=== PATIENT | female | born 1955 | race African-American/Black ===

== ENCOUNTER → 2016-04-30 | Outpatient (CLI) | payer MEDICARE, OTHER | END | disposition home or self-care (01) | LOC: LABWHC1 10:07 | PROVIDERS: ATTEND Internal Medicine Endocrinology, Diabetes & Metabolism | DX: E05.90 Thyrotoxicosis, unspecified without thyrotoxic crisis or storm (principal) | CPT/HCPCS: 36415; 84439; 84443 ==

== ENCOUNTER → 2016-05-02 | Outpatient (CLI) | payer MEDICARE, OTHER ==
--- NOTE | 2016-05-03 13:45 | MM ---
Reason for exam: screening (asymptomatic). Last mammogram was performed 2 years and 4 months ago. Physical Findings: A clinical breast exam by your physician is recommended on an annual basis and results should be correlated with mammographic findings. MG Screening Mammo w CAD Bilateral CC and MLO view(s) were taken. Prior study comparison: December 31, 2013, bilateral MG screening mammo w CAD. The breast tissue is heterogeneously dense. This may lower the sensitivity of mammography. Finding: There are typically benign round calcifications in both breasts. There is no discrete abnormality. ASSESSMENT: Benign, BI-RAD 2 RECOMMENDATION: Routine screening mammogram of both breasts in 1 year.
== END | disposition home or self-care (01) ==
LOC: RADMAMWWP 08:04
PROVIDERS: ATTEND Family Medicine
DX: Z12.31 Encounter for screening mammogram for malignant neoplasm of breast (principal)

== ENCOUNTER → 2016-05-20 | Outpatient (CLI) | payer MEDICARE, OTHER ==
--- NOTE | 2016-05-20 08:34 | XR ---
EXAMINATION TYPE: XR chest 2V DATE OF EXAM: 05/20/2016 8:24 AM COMPARISON: 10/27/2013 INDICATION: Screening history of TB TECHNIQUE: Frontal and lateral views of the chest are obtained. FINDINGS: The heart size is normal. The pulmonary vasculature is normal. The lungs are clear. IMPRESSION: 1. No acute pulmonary process.
== END | disposition home or self-care (01) ==
LOC: RADXRMAIN 08:13
PROVIDERS: ATTEND Family Medicine
DX: Z11.1 Encounter for screening for respiratory tuberculosis (principal)
CPT/HCPCS: 71020

== ENCOUNTER → 2016-07-25 | Outpatient (CLI) | payer MEDICARE, OTHER | LOC: LABWHC1 09:54 | PROVIDERS: ATTEND Internal Medicine Endocrinology, Diabetes & Metabolism | DX: E05.90 Thyrotoxicosis, unspecified without thyrotoxic crisis or storm (principal) | CPT/HCPCS: 36415; 84439; 84443 ==

== ENCOUNTER → 2016-07-31 | Outpatient (CLI) | payer MEDICARE, OTHER ==
[2016-07-31 14:33] VITALS: BP 149/72; PULSE 85; RESP 16; TEMP 97.9; BMI 41.3
--- NOTE | 2016-08-23 19:54 | P.PN ---
Progress Note - Text DATE OF SERVICE: 07/31/2016 CHIEF COMPLAINT: Follow-up sleeve gastrectomy. HISTORY OF PRESENT ILLNESS: Chelsey Mar is a 61-year-old female who is status post sleeve gastrectomy in January 2014. She is over 2-1/2 years out. She reports having recent back surgery in the last 2 months and now she is taking Robaxin and Vicodin. She reports weight gain of at least 6 pounds. She also reports troubles with food getting stuck. She has dysphagia primarily to solid foods. Separately she comes in with concerns of a moderate sized pannus following her significant weight loss of over 100+ pounds. At her height of 5 feet 4 inches her ideal body weight is 144 pounds. Her highest weight was 356 pounds. Today she comes in weighing 240 pounds. She has maintained a 116 pound weight loss. Percent excess weight loss is 55%. Body mass index is reduced from 60.2 down to 41.3. Total BMI point reduction is 20 pounds. She is still 96 pounds overweight. PAST MEDICAL HISTORY: 1. Morbid obesity. 2. Hypertension. 3. Blood glucose intolerance. 4. Thyroid nodules. 5. Diverticulosis. 6. Osteoarthritis of the lower back. PAST SURGICAL HISTORY: 1. Laparoscopic cholecystectomy. 2. EGD. 3. Sleeve gastrectomy. 4. Paraesophageal hiatal hernia repair. 5. Oophorectomy including exploratory laparotomy. 6. Colonoscopy. 7. Status post back surgery. MEDICATIONS: 1. Levothyroxine. 2. Vitamin A. 3. Thiamine. 4. Multivitamin. 5. Nasonex spray. 6. Robaxin. 7. Xalatan. 8. [place]. 9. Zyrtec. 10. Calcium with vitamin D. 11. Fiorinal. 12. Biotin. 13. Albuterol inhaler. ALLERGIES: 1. ASPIRIN. 2. PENICILLIN. SOCIAL HISTORY: Nontobacco user. FAMILY HISTORY: Pertinent for super morbid obesity. REVIEW OF SYSTEMS: CONSTITUTIONAL: Weight gain of approximately 5 to 6 pounds in the last 8 months. Total weight loss of 117 pounds. Percent excess of 55%. Body mass index reduced from 61.2 down to 41.3. Total BMI point reduction of 20 points. Overweight by 96 pounds. MUSCULOSKELETAL: Reports recent lower back surgery with some improvement of symptoms. GASTROINTESTINAL: No reports of gastroesophageal reflux disease. However, she reports dysphagia to textured foods. ENDOCRINE: Has history of thyroid disorder and with her thyroid nodules. Prior history of blood sugar glucose intolerance with hemoglobin A1c of 7% now resolved. NEURO: Reports increased neuropathy of the distal lower extremities. CARDIOVASCULAR: Resolution of dyslipidemia including hypertension. RESPIRATORY: History obstructive sleep apnea moderately improved. HEENT: No trouble with vision or hearing. PSYCH: No reports of depression or suicidal ideation. HEMATOLOGIC: Denies any abnormal bleeding or bruising. PHYSICAL EXAM: VITAL SIGNS: 97.9, 85, 16, 149/72; 5 feet 4 inches; 240 pounds. Body mass index 41.3. ABDOMEN: Soft, nondistended, nontender. Pannus extends over pubis by 5 cm with hyperemia consistent with panniculitis. Size of pannus of over 6 pounds. GENERAL: Well developed female in no acute distress. MUSCULOSKELETAL: No clubbing, cyanosis or edema. HEENT: No scleral icterus. Extraocular movements are intact. CHEST: Nonlabored respirations. Equal bilateral excursions. CARDIOVASCULAR: Regular rate. Regular rhythm. NEURO: No focal or lateralizing signs. Cranial nerves II to XII grossly intact. PSYCH: Appropriate affect. Alert and oriented to person, place and time. LABS: Recent labs demonstrated thyroid-stimulating hormone suppressed at 0.046. FT4 level was low at 0.58. Hemoglobin was normal at 12.7. Glucose was low at 72. ASSESSMENT: 1. Morbid obesity due to excess calories. 2. Body mass index reduced from 61.2 down to 41.3. 3. Status post sleeve gastrectomy. 4. Iatrogenic hyperthyroidism. 5. Osteoarthritis of the lower back status post surgery. 6. Dysphasia. 7. Panniculitis. PLAN: 1. At minimum I have recommended upper GI. She reports intolerance to textured foods with the sleeve gastrectomy. This overall has gotten worse for her. 2. May also benefit from upper endoscopy with balloon dilatation. 3. To address her panniculitis she has been using nystatin powders for over 2 years with maintained weight loss of over 100 pounds. She would be excellent candidate for panniculectomy. 4. A panniculectomy packet including risk of the procedure of bleeding, infection, flap failure, need for further surgery, abdominal wall seroma, chronic pain were described in detail. 5. Will need deep venous thrombosis prophylaxis. 6. Antibiotic prophylaxis. 7. Once she is cleared from her neurosurgeon and back surgeon, we may consider further evaluation of her panniculectomy. 8. Also recommend correcting her overall dysphagia to foods. Optimal nutrition will be ideal for recovery following a panniculectomy or additional surgeries. ADDENDUM: Upper GI was completed demonstrating no evidence of hiatal hernia or diverticulum or evidence of reflux disease.
== END | disposition home or self-care (01) ==
LOC: BARWHC3 14:13
PROVIDERS: ATTEND Surgery Plastic and Reconstructive Surgery
DX: Z48.815 Encounter for surgical aftercare following surgery on the digestive system (principal); E66.01 Morbid (severe) obesity due to excess calories; Z68.41 Body mass index [BMI] 40.0-44.9, adult; Z98.84 Bariatric surgery status; E05.80 Other thyrotoxicosis without thyrotoxic crisis or storm; R13.10 Dysphagia, unspecified; M47.896 Other spondylosis, lumbar region; M79.3 Panniculitis, unspecified; Z79.899 Other long term (current) drug therapy; Z88.0 Allergy status to penicillin; Z88.8 Allergy status to other drugs, medicaments and biological substances; Z98.890 Other specified postprocedural states
CPT/HCPCS: 99211

== ENCOUNTER → 2016-08-08 | Outpatient (CLI) | payer MEDICARE, OTHER ==
--- NOTE | 2016-08-08 13:02 | FL ---
ESOPHOGRAM. HISTORY: Dysphagia Esophagram was performed per the air contrast technique. The patient swallowed barium and effervesce nt crystals without difficulty or delay. Esophageal peristalsis and motility appear to be within normal limits. There is no evidence for filling defect, mass or diverticulum. No hiatal hernia seen. Subsequently single contrast cervical esophagram was performed which fails demonstrate evidence for a spiration penetration or mass. Evaluation of the stomach demonstrates a gastric sleeve formation. There is no evidence for obstructi on or leak. Contrast is seen within the duodenum. IMPRESSION: Unremarkable study.
== END ==
LOC: RADFLWHC 09:12
PROVIDERS: ATTEND Surgery Plastic and Reconstructive Surgery
DX: R13.10 Dysphagia, unspecified (principal); R07.9 Chest pain, unspecified
CPT/HCPCS: 74220

== ENCOUNTER → 2016-09-20 | Outpatient (CLI) | payer MEDICARE, OTHER | END | disposition home or self-care (01) | LOC: LABWHC1 12:44 | PROVIDERS: ATTEND Internal Medicine Endocrinology, Diabetes & Metabolism | DX: E05.90 Thyrotoxicosis, unspecified without thyrotoxic crisis or storm (principal) | CPT/HCPCS: 36415; 84439; 84443 ==

== ENCOUNTER → 2016-11-25 | Outpatient (CLI) | payer MEDICARE, OTHER | END | disposition home or self-care (01) | LOC: LABWHC1 07:24 | PROVIDERS: ATTEND Internal Medicine Endocrinology, Diabetes & Metabolism | DX: E05.90 Thyrotoxicosis, unspecified without thyrotoxic crisis or storm (principal) | CPT/HCPCS: 36415; 84439; 84443; 84480 ==

== ENCOUNTER → 2017-02-27 | Outpatient (CLI) | payer MEDICARE, OTHER ==
[2017-02-27 11:06] VITALS: BP 150/71; PULSE 70; RESP 20
[2017-02-27 11:20] VITALS: BMI 43.2
[2017-02-27 12:05] VITALS: TEMP 97.8
--- NOTE | 2017-04-28 17:42 | P.PN ---
Subjective Progress Note Date: 02/27/17 DATE OF SERVICE: 02/27/2017 CHIEF COMPLAINT: Follow-up sleeve gastrectomy. HISTORY OF PRESENT ILLNESS: Chelsey Mar is a 61-year-old female who is status post sleeve gastrectomy in January 2014. She is 3 years out. Since her last visit 6 months ago, she has gained 12 pounds. She comes in for evaluation for panniculectomy. Separately she complains of tenderness along her neck. She has been seeing the clamshell operator for thyromegaly. Now she presents for further evaluation and management. At her height of 5 feet 4 inches her ideal body weight is 144 pounds. Her highest weight was 356 pounds. Today she comes in weighing 252 pounds. She has maintained a 104 pound weight loss. Percent excess weight loss is 49%. Body mass index is reduced from 61.2 down to 43.3. Total BMI point reduction is 18. She is still 108 pounds overweight. PAST MEDICAL HISTORY: 1. Morbid obesity. 2. Hypertension. 3. Blood glucose intolerance. 4. Thyroid nodules. 5. Diverticulosis. 6. Osteoarthritis of the lower back. PAST SURGICAL HISTORY: 1. Laparoscopic cholecystectomy. 2. EGD. 3. Sleeve gastrectomy. 4. Paraesophageal hiatal hernia repair. 5. Oophorectomy including exploratory laparotomy. 6. Colonoscopy. 7. Status post back surgery. MEDICATIONS: 1. Levothyroxine. 2. Vitamin A. 3. Thiamine. 4. Multivitamin. 5. Nasonex spray. 6. Robaxin. 7. Xalatan. 8. [place]. 9. Zyrtec. 10. Calcium with vitamin D. 11. Fiorinal. 12. Biotin. 13. Albuterol inhaler. ALLERGIES: 1. ASPIRIN. 2. PENICILLIN. SOCIAL HISTORY: Nontobacco user. FAMILY HISTORY: Pertinent for super morbid obesity. REVIEW OF SYSTEMS: CONSTITUTIONAL: Weight gain of approximately 18 pounds in 2 years. Total weight loss of 104 pounds. Percent excess of 49%. Body mass index reduced from 61.2 down to 43.3. Total BMI point reduction of 18 points. Overweight by 108 pounds. MUSCULOSKELETAL: Reports recent lower back surgery with some improvement of symptoms. Has diffuse joint pain. GASTROINTESTINAL: No reports of gastroesophageal reflux disease. Reports trouble swallowing. ENDOCRINE: Has history of thyroid disorder and with her thyroid nodules. Prior history of blood sugar glucose intolerance with hemoglobin A1c of 7% now resolved. NEURO: Reports increased neuropathy of the distal lower extremities. CARDIOVASCULAR: Resolution of dyslipidemia including hypertension. RESPIRATORY: History obstructive sleep apnea moderately improved. HEENT: No trouble with vision or hearing. PSYCH: No reports of depression or suicidal ideation. HEMATOLOGIC: Denies any abnormal bleeding or bruising. PHYSICAL EXAM: VITAL SIGNS: 5 feet 4 inches; 252 pounds. Body mass index 43.3. ABDOMEN: Soft, nondistended, nontender. Pannus extends over pubis by 8 cm with hyperemia consistent with panniculitis. Size of pannus of 15 to 20 lbs. GENERAL: Well developed female in no acute distress. MUSCULOSKELETAL: No clubbing, cyanosis or edema. HEENT: No scleral icterus. Extraocular movements are intact. NECK: Thyromegaly. Nontender. No lymphadenopathy. CHEST: Nonlabored respirations. Equal bilateral excursions. CARDIOVASCULAR: Regular rate. Regular rhythm. NEURO: No focal or lateralizing signs. Cranial nerves II to XII grossly intact. PSYCH: Appropriate affect. Alert and oriented to person, place and time. SKIN: Well perfused. Good skin turgor. STUDIES: Esophagram demonstrates no hiatal hernia or reflux. ASSESSMENT: 1. Morbid obesity due to excess calories. 2. Body mass index reduced from 61.2 down to 43.3. 3. Status post sleeve gastrectomy. 4. Dysphagia. 5. Osteoarthritis of the lower back status post surgery. 6. Thyroid goiter. 7. Panniculitis. 8. Hypertensive heart disease. 9. History of asthma. PLAN: 1. Recommend evaluation for panniculectomy however following evaluation of her thyroid goiter. 2. On exam, she has moderate thyromegaly. Recommend ultrasound of the neck to evaluate for thyroid masses or nodules. 3. Recommend repeat labs for thyroid disorder. Also recommend follow up with clamshell operator. 4. Recommend pictures of her panniculitis. 5. Recommend 2 weeks high protein, low calorie diet prior to panniculectomy. 6. Surgical intervention pending complete assessment of thyroid disorder. Objective - Vital Signs Vital signs: Vital Signs Temp 7.8 F L 02/27/17 11:01 Pulse 70 02/27/17 11:01 Resp 20 02/27/17 11:01 BP 150/71 02/27/17 11:01 Pulse Ox Intake & Output 02/26/17 02/27/17 02/27/17 18:59 06:59 18:59 Weight 114.351 kg
== END | disposition home or self-care (01) ==
LOC: BARWHC3 10:00
PROVIDERS: ATTEND Surgery Plastic and Reconstructive Surgery
DX: Z09 Encounter for follow-up examination after completed treatment for conditions other than malignant neoplasm (principal); M47.816 Spondylosis without myelopathy or radiculopathy, lumbar region; E04.9 Nontoxic goiter, unspecified; M79.3 Panniculitis, unspecified; I11.9 Hypertensive heart disease without heart failure; E66.01 Morbid (severe) obesity due to excess calories; Z68.41 Body mass index [BMI] 40.0-44.9, adult; Z87.09 Personal history of other diseases of the respiratory system; Z88.6 Allergy status to analgesic agent; Z88.0 Allergy status to penicillin; Z79.899 Other long term (current) drug therapy; Z90.49 Acquired absence of other specified parts of digestive tract; Z87.19 Personal history of other diseases of the digestive system; Z90.721 Acquired absence of ovaries, unilateral; Z98.84 Bariatric surgery status; Z98.890 Other specified postprocedural states
CPT/HCPCS: 99211

== ENCOUNTER → 2017-03-07 | Outpatient (CLI) | payer MEDICARE, OTHER ==
--- NOTE | 2017-03-07 18:19 | US ---
EXAMINATION TYPE: US thyroid st tissue head/neck DATE OF EXAM: 03/07/2017 COMPARISON: US 11/09/2015 CLINICAL HISTORY: R94.6 Abnormal thyroid labs. Feels enlarged neck compared to prior US exam. GLAND SIZE: Right Lobe: 7.1 x 3.1 x 3.8 cm Overall Parenchyma: heterogenous Left Lobe: greater than 7.0 x 3.2 x 3.2 cm (enlarged gland too large for measuring accurate length) Overall Parenchyma: heterogeneous. Lobular borders especially noted on left superior thyroid on i mage #27 and #29. Isthmus Thickness: 1.9 cm inferiorly NODULES RIGHT: # of nodules measured on right: 1 1. 0.3 X 0.3 x 0.3 cm hypoechoic solid nodule at the upper pole with poorly defined margins. This nodule is wide as is tall and shows no intranodular vascularity. Prior size: 0.3 x 0.2 x 0.2 cm LEFT: # of nodules measured on left: 2 largest of multiple small nodules. 1. 0.5 X 0.6 x 0.2 cm hypoechoic cystic nodule at the upper pole with well-defined margins. This n odule is wider than tall and shows no intranodular vascularity. Prior size: 0.8 x 0.7 x 0.5 cm 2. 0.6 X 0.7 x 0.7 cm hyperechoic solid nodule at the mid medial pole with well-defined margins. Th is nodule is wide as is tall and shows no intranodular vascularity. Prior size: 0.6 x 0.6 x 0.5 cm ISTHMUS: # of nodules measured in the isthmus: 0 Bilateral neck scanned, no evidence of lymphadenopathy. IMPRESSION: Markedly enlarged thyroid gland consistent with multinodular goiter. No dominant thyroid mass. The gl and measures larger than old exam.
== END | disposition home or self-care (01) ==
LOC: RADUSWWP 16:47
PROVIDERS: ATTEND Surgery Plastic and Reconstructive Surgery
DX: E04.9 Nontoxic goiter, unspecified (principal)
CPT/HCPCS: 76536

== ENCOUNTER → 2017-04-16 | Outpatient (CLI) | payer MEDICARE, OTHER ==
[2017-04-16 15:05] VITALS: BP 142/79; PULSE 82; RESP 16; TEMP 98.2; BMI 43.0
--- NOTE | 2017-05-27 22:16 | P.PN ---
Progress Note - Text Progress Note Date: 04/16/17 DATE OF SERVICE: 04/16/2017 CHIEF COMPLAINT: Follow-up sleeve gastrectomy. HISTORY OF PRESENT ILLNESS: Chelsey Mar is a 61-year-old female who is status post sleeve gastrectomy in January 2014. At her height of 5 feet 4 inches her ideal body weight is 144 pounds. Her highest weight was 356 pounds. Today she comes in weighing 250 pounds. She has lost 2 pounds since her last visit 1 month ago. She has maintained a 106 pound weight loss. Percent excess weight loss is 50%. Body mass index is reduced from 61.2 down to 43.0. Total BMI point reduction is 18.3. She is still 106 pounds overweight. She comes in today with problems with her thyroid. She seeing an breast trimmer. She complains of neck swelling including troubles with swallowing. She also reports new heart palpitations. She reports intermittent gastroesophageal reflux disease. Her main concern includes increased dysphagia especially secondary to her thyroid. She also complains of new onset weakness and numbness and tingling of the bilateral lower extremities including arms and legs. She is ambulating with a cane. PAST MEDICAL HISTORY: 1. Morbid obesity. 2. Hypertension. 3. Blood glucose intolerance. 4. Thyroid nodules. 5. Diverticulosis. 6. Osteoarthritis of the lower back. PAST SURGICAL HISTORY: 1. Laparoscopic cholecystectomy. 2. EGD. 3. Sleeve gastrectomy. 4. Paraesophageal hiatal hernia repair. 5. Oophorectomy including exploratory laparotomy. 6. Colonoscopy. 7. Status post back surgery. MEDICATIONS: 1. Levothyroxine. 2. Vitamin A. 3. Thiamine. 4. Multivitamin. 5. Nasonex spray. 6. Robaxin. 7. Xalatan. 8. [place]. 9. Zyrtec. 10. Calcium with vitamin D. 11. Fiorinal. 12. Biotin. 13. Albuterol inhaler. ALLERGIES: 1. ASPIRIN. 2. PENICILLIN. SOCIAL HISTORY: Nontobacco user. FAMILY HISTORY: Pertinent for super morbid obesity. REVIEW OF SYSTEMS: CONSTITUTIONAL: At her height of 5 feet 4 inches her ideal body weight is 144 pounds. Her highest weight was 356 pounds. Today she comes in weighing 250 pounds. She has lost 2 pounds since her last visit 1 month ago. She has maintained a 106 pound weight loss. Percent excess weight loss is 50%. Body mass index is reduced from 61.2 down to 43.0. Total BMI point reduction is 18.3. She is still 106 pounds overweight. MUSCULOSKELETAL: Reports recent lower back surgery with some improvement of symptoms. Has diffuse joint pain. GASTROINTESTINAL: Has gastroesophageal reflux disease. Reports trouble swallowing. ENDOCRINE: Has history of thyroid disorder and with her thyroid nodules. Prior history of blood sugar glucose intolerance with hemoglobin A1c of 7% now resolved. NEURO: Reports increased neuropathy of the distal lower extremities. CARDIOVASCULAR: Resolution of dyslipidemia including hypertension. RESPIRATORY: History obstructive sleep apnea moderately improved. HEENT: No trouble with vision or hearing. PSYCH: No reports of depression or suicidal ideation. HEMATOLOGIC: Denies any abnormal bleeding or bruising. PHYSICAL EXAM: VITAL SIGNS: 5 feet 4 inches; 250 pounds. Body mass index 43.0. Vital Signs Temp 98.2 F 04/16/17 15:02 Pulse 82 04/16/17 15:02 Resp 16 04/16/17 15:02 BP 142/79 04/16/17 15:02 Pulse Ox ABDOMEN: Soft, nondistended, nontender. GENERAL: Well developed female in no acute distress. MUSCULOSKELETAL: No clubbing, cyanosis or edema. HEENT: No scleral icterus. Extraocular movements are intact. NECK: Thyromegaly. Nontender. No lymphadenopathy. CHEST: Nonlabored respirations. Equal bilateral excursions. CARDIOVASCULAR: Regular rate. Regular rhythm. NEURO: No focal or lateralizing signs. Cranial nerves II to XII grossly intact. PSYCH: Appropriate affect. Alert and oriented to person, place and time. SKIN: Well perfused. Good skin turgor. STUDIES: Ultrasound of the neck demonstrated increased size of thyroid gland including multinodular thyroid. No large over 1 cm discrete nodules identified. Esophagram from previous also reviewed demonstrating no obstruction along the esophagus or stomach. LABS: Laboratory Last Values WBC 5.5 k/uL (3.8-10.6) 02/28/17 16:58 RBC 4.27 m/uL (3.80-5.40) 02/28/17 16:58 Hgb 13.1 gm/dL (11.4-16.0) 02/28/17 16:58 Hct 41.5 % (34.0-46.0) 02/28/17 16:58 MCV 97.1 fL (80.0-100.0) 02/28/17 16:58 MCH 30.7 pg (25.0-35.0) 02/28/17 16:58 MCHC 31.6 g/dL (31.0-37.0) 02/28/17 16:58 RDW 14.5 % (11.5-15.5) 02/28/17 16:58 Plt Count 225 k/uL (150-450) 02/28/17 16:58 Sodium 134 mmol/L (137-145) L 02/28/17 16:58 Potassium 4.4 mmol/L (3.5-5.1) 02/28/17 16:58 Chloride 101 mmol/L (98-107) 02/28/17 16:58 Carbon Dioxide 28 mmol/L (22-30) 02/28/17 16:58 Anion Gap 5 mmol/L 02/28/17 16:58 BUN 14 mg/dL (7-17) 02/28/17 16:58 Creatinine 0.80 mg/dL (0.52-1.04) 02/28/17 16:58 Est GFR (MDRD) Af Amer >60 (>60 ml/min/1.73 sqM) 02/28/17 16:58 Est GFR (MDRD) Non-Af >60 (>60 ml/min/1.73 sqM) 02/28/17 16:58 Glucose 108 mg/dL (74-99) H 02/28/17 16:[address] Glu mg/dL 114 02/28/17 16:58 Hemoglobin A1c 5.6 % (4.0-6.0) 02/28/17 16:58 Calcium 8.7 mg/dL (8.4-10.2) 02/28/17 16:58 Phosphorus 3.9 mg/dL (2.5-4.5) 02/28/17 16:58 Magnesium 2.1 mg/dL (1.6-2.3) 02/28/17 16:58 Iron 79 ug/dL (50-170) 02/28/17 16:58 TIBC 257 ug/dL (228-460) 02/28/17 16:58 Iron Saturation 30.74 (12.00-45.00) 02/28/17 16:58 Ferritin 76.3 ng/mL (10.0-291.0) 02/28/17 16:58 Total Bilirubin 0.4 mg/dL (0.2-1.3) 02/28/17 16:58 AST 27 U/L (14-36) 02/28/17 16:58 ALT 32 U/L (9-52) 02/28/17 16:58 Alkaline Phosphatase 82 U/L (38-126) 02/28/17 16:58 Total Protein 5.8 g/dL (6.3-8.2) L 02/28/17 16:58 Albumin 3.2 g/dL (3.5-5.0) L 02/28/17 16:58 Prealbumin 28.0 mg/dL (18.0-42.0) 02/28/17 16:58 Triglycerides 136 mg/dL (<150) 02/28/17 16:58 Cholesterol 160 mg/dL (<200) 02/28/17 16:58 LDL Cholesterol, Calc 77 mg/dL (0-99) 02/28/17 16:58 HDL Cholesterol 56 mg/dL (40-60) 02/28/17 16:58 Vitamin A 54 ug/dL (38-106) 02/28/17 16:58 Vitamin B1 37 ug/L (38-122) L 02/28/17 16:58 Vitamin B12 356.0 pg/mL (200.0-944.0) 02/28/17 16:58 Vitamin D 25-Hydroxy 26.6 ng/mL (30.0-100.0) L 02/28/17 16:58 Folate >24.0 ng/mL 02/28/17 16:58 TSH 16.600 mIU/L (0.465-4.680) H 02/28/17 16:58 Free T4 <0.07 ng/dL (0.78-2.19) L 02/28/17 16:58 Total T3 72.0 ng/dL (60.0-180.0) 02/28/17 16:58 PTH Intact 121.9 pg/mL (14.0-72.0) H 02/28/17 16:58 Copper 950 ug/L (810-1990) 02/28/17 16:58 Selenium 112 mcg/L (63-160) 02/28/17 16:58 Zinc 60 ug/dL (60-130) 02/28/17 16:58 Labs reviewed demonstrated low protein. Low albumin. Low thiamine. Low vitamin D. TSH elevated. PTH elevated. Free T4 low. ASSESSMENT: 1. Morbid obesity due to excess calories. 2. Body mass index reduced from 61.2 down to 43.0. 3. Status post sleeve gastrectomy. 4. Dysphagia. 5. Osteoarthritis of the lower back status post surgery. 6. Thyroid goiter. 7. Panniculitis. 8. Hypertensive heart disease. 9. History of asthma. 10. Bilateral lower extremity neuropathy, increasing. 11. Adequate protein intake. 12. Thiamine deficiency. 13. Vitamin D deficiency. 14. Hypothyroidism. 15. Secondary hyperparathyroidism. PLAN: 1. She reports increased dysphagia as well as a markedly increased size in the thyroid gland. I have recommended upper endoscopy. 2. With her increase trouble swallowing, esophageal dysmotility cannot be excluded. Also recommend evaluation with manometry. 3. She has clinical symptoms consistent with increased neuropathy of the lower extremities as well as thiamine deficiency. Recommend correction of thiamine deficiency. 4. She also reports new onset palpitations. This may also be secondary to her thyroid medications. Recommend evaluation with the greaser operator also for presurgical evaluation and for possible thyroidectomy. 5. Additionally, recommend CT of the neck for large multinodular goiter which may have extension into the substernum. 6. Surgical prevention with thyroidectomy also reviewed after correction of hypothyroidism with her breast trimmer and cardiac clearance.
== END | disposition home or self-care (01) ==
LOC: BARWHC3 14:07
PROVIDERS: ATTEND Surgery Plastic and Reconstructive Surgery
DX: Z09 Encounter for follow-up examination after completed treatment for conditions other than malignant neoplasm (principal); E66.01 Morbid (severe) obesity due to excess calories; E04.9 Nontoxic goiter, unspecified; E89.0 Postprocedural hypothyroidism; I11.9 Hypertensive heart disease without heart failure; E74.39 Other disorders of intestinal carbohydrate absorption; K57.90 Diverticulosis of intestine, part unspecified, without perforation or abscess without bleeding; M47.9 Spondylosis, unspecified; M79.3 Panniculitis, unspecified; K21.9 Gastro-esophageal reflux disease without esophagitis; E51.9 Thiamine deficiency, unspecified; G57.93 Unspecified mononeuropathy of bilateral lower limbs; J45.909 Unspecified asthma, uncomplicated; E55.9 Vitamin D deficiency, unspecified; Z98.84 Bariatric surgery status; Z98.890 Other specified postprocedural states; Z79.899 Other long term (current) drug therapy; Z79.891 Long term (current) use of opiate analgesic; Z79.51 Long term (current) use of inhaled steroids; Z88.0 Allergy status to penicillin; Z88.6 Allergy status to analgesic agent; Z68.41 Body mass index [BMI] 40.0-44.9, adult; Z90.49 Acquired absence of other specified parts of digestive tract; N25.81 Secondary hyperparathyroidism of renal origin
CPT/HCPCS: 99211

== ENCOUNTER → 2017-04-25 | Outpatient (CLI) | payer MEDICARE, OTHER ==
[2017-04-25 07:44] LABS: Blood Urea Nitrogen 14 mg/dL (7-17)
--- NOTE | 2017-04-25 08:42 | CT ---
EXAMINATION TYPE: CT soft tissue neck w con DATE OF EXAM: 04/25/2017 HISTORY: Lt sided neck mass, thyroid nodule COMPARISON: Thyroid ultrasound dated 03/07/2017 CT DLP: 730.5 mGycm. Automated Exposure Control for Dose Reduction was Utilized. TECHNIQUE: CT scan of the neck is performed with IV Contrast, patient injected with 100 mL of Omnipa que 300, axial images are obtained, coronal and sagittal reformatted images are reviewed. FINDINGS: Airway: Airway is patent and unremarkable. Parotid/submandibular glands: Parotid and submandibular glands are symmetric without surrounding infl ammatory change or obvious calculus. Carotid/Vascular Structures: There is no evidence of hemodynamically significant stenosis. Vertebral arteries are codominant. No significant noncalcific or calcific atherosclerosis. Osseous Structures: Osseous structures are intact with minimal multilevel degenerative changes of the cervical spine. There are some limitation in evaluation of the cervical spine secondary to patient m otion on the sagittal image. Other: As noted on the prior ultrasound dated 03/07/2017 the thyroid gland is enlarged with extension into the superior mediastinum at the level of the sternum. There is also heterogeneity with the know n left-sided thyroid nodules better visualized on the prior ultrasound. There is no surrounding adeno felicitas. The thyroid gland measures up to 6.1 cm in craniocaudal dimension within each lobe and 2.9 cm within the left lobe in transverse dimension with the isthmus measuring 1.5 cm. There is no tracheal narrowing subsequent to the enlarged thyroid. IMPRESSION: Redemonstration of an enlarged thyroid and thyroid nodules better seen on the ultrasound dated 03/07/2017. There is no narrowing of the trachea or surrounding adenopathy. Surveillance is rec ommended for the known subcentimeter thyroid nodules as these are too small for percutaneous biopsy.
== END ==
LOC: RADCTMAIN 07:15
PROVIDERS: ATTEND Surgery Plastic and Reconstructive Surgery
DX: E04.2 Nontoxic multinodular goiter (principal)
CPT/HCPCS: 82565; 84520; 70491; 36415; Q9967; 96374

== ENCOUNTER → 2017-05-20 | Outpatient (CLI) | payer MEDICARE, OTHER ==
--- NOTE | 2017-05-20 10:13 | MR ---
EXAMINATION TYPE: MR brain wo/w con DATE OF EXAM: 05/20/2017 COMPARISON: CT brain July 26, 2014 HISTORY: Headache per patient. CVA 163.9 per prescription. TECHNIQUE: Multiplanar, multisequence images of the brain and brainstem is performed without and with IV contras t, utilizing 11.5 mL intravenous Gadavist . FINDINGS: Diffusion weighted images demonstrate no evidence of a recent infarct or other diffusion ab normality. There is no worrisome extra-axial fluid collection. The ventricular system and cisternal spaces are normal in size and appearance. The brain volume is age appropriate. There are focal and confluent areas of T2 hyperintensity redemonstrated throughout the deep and periventricular white mat ter bilaterally. Lesions are nonspecific in appearance and distribution but most likely on basis of p roduct of proximal vessel ischemic change in patient this age. Midline structures demonstrate normal morphology. The craniocervical junction appears within normal limits. Post contrast images demonstrate no abnormal enhancement. The dural venous sinuses appear pa tent. The visualized sinuses are clear and the globes are intact. IMPRESSION: 1. No evidence of a recent infarct. 2. Moderate to severe nonspecific white matter changes most likely on basis of product of chronic sma ll vessel ischemic change in patient of this age. No enhancing lesions are evident.
== END | disposition home or self-care (01) ==
LOC: RADMRIMAIN 08:06
PROVIDERS: ATTEND Psychiatry & Neurology Pain Medicine
DX: R90.82 White matter disease, unspecified (principal); I63.9 Cerebral infarction, unspecified
CPT/HCPCS: 70553; A9581

== ENCOUNTER → 2017-06-02 | Outpatient (CLI) | payer MEDICARE, OTHER | END | disposition home or self-care (01) | LOC: CANPRECLI → LABWHC1 09:00 | PROVIDERS: ATTEND Psychiatry & Neurology Pain Medicine | DX: Z53.9 Procedure and treatment not carried out, unspecified reason (principal) ==

== ENCOUNTER → 2017-06-03 | Outpatient (CLI) | payer MEDICARE, OTHER ==
[2017-06-03 20:23] LABS: Anti-DNA, DS unit <1.0 IU/mL; Centromere Antibody Interp NEGATIVE (NEGATIVE); Cyclic Citrullinated Pep IgG NEGATIVE (NEGATIVE); DNA Double-Stranded NEGATIVE (NEGATIVE); RNP <0.2 AI; Scleroderma SC-70 Ab <0.2 AI
== END | disposition home or self-care (01) ==
LOC: LABWHC1 12:46
PROVIDERS: ATTEND Psychiatry & Neurology Pain Medicine
DX: M25.50 Pain in unspecified joint (principal)
CPT/HCPCS: 36415; 83516; 86038; 86200; 86225; 86235

== ENCOUNTER 2017-06-11 06:41 | Day surgery (SDC) | payer MEDICARE, OTHER ==
[2017-06-06 15:02] VITALS: BMI 42.9
[~2017-06-11 06:41] MED LIST: LACTATED RINGERS 1,000 ML IV SCH
[2017-06-11 07:10] VITALS: TEMP 97.7
[2017-06-11] MEDS ORDERED: LIDOCAINE 1% INJ 10MG/ML (20 ML MDV) ONE (07:35)
[2017-06-11] MEDS ORDERED: PROPOFOL 10 MG/ML 20 ML VIAL IV ONE (07:35)
[2017-06-11] MEDS ORDERED: GLYCOPYRROLATE 0.2 MG/ML 2 ML VIAL ONE (07:35)
--- NOTE | 2017-06-11 07:39 | P.GSHP ---
History of Present Illness H&P Date: 06/11/17 CHIEF COMPLAINT: GERD HISTORY OF PRESENT ILLNESS: The patient is a 61-year-old female who presents reports gastroesophageal reflux disease. Upper endoscopy was offered for further evaluation and management. PAST MEDICAL HISTORY: Please see list. PAST SURGICAL HISTORY: Please see list. MEDICATIONS: Please see list. ALLERGIES: Please see list. SOCIAL HISTORY: No illicit drug use FAMILY HISTORY: No reports of Crohn disease or ulcerative colitis. REVIEW OF ORGAN SYSTEMS: CONSTITUTIONAL: No reports of fevers or chills. GI: Denies any blood in stools or constipation. PHYSICAL EXAM: VITAL SIGNS: Stable GENERAL: Well-developed and pleasant in no acute distress. HEENT: No scleral icterus. Extraocular movements grossly intact. Moist buccal mucosa. NECK: Supple without lymphadenopathy. CHEST: Unlabored respirations. Equal bilateral excursions. CARDIOVASCULAR: Regular rate and rhythm. Distal 2+ pulses. ABDOMEN: Soft, nondistended. MUSCULOSKELETAL: No clubbing, cyanosis, or edema. ASSESSMENT: 1. Gastroesophageal reflux disease PLAN: 1. Recommend proceeding with an upper endoscopy Past Medical History Past Medical History: CVA/TIA, Deep Vein Thrombosis (DVT), GERD/Reflux, Osteoarthritis (OA) Additional Past Medical History / Comment(s): CHRONIC PAIN, HX migraine, HX HIATAL hernia, HX TIA X2, GLAUCOMA, DVT, Treated for TB at age 3 to age 7. History of Any Multi-Drug Resistant Organisms: None Reported Past Surgical History: Bariatric Surgery, Section, Cholecystectomy, Hernia Repair, Hysterectomy, Orthopedic Surgery Additional Past Surgical History / Comment(s): temporal biopsy to r\\o pain from migraines- not effective, , CARPAL TUNNEL X5, LEFT LEG SX, gastric sleeve 2013 Past Anesthesia/Blood Transfusion Reactions: Previous Problems w/ Anesthesia Additional Past Anesthesia/Blood Transfusion Reaction / Comment(s): STATES "SPINAL WENT TOO HIGH" with labor. Pt doesn't accept blood, but will accept plasma. Smoking Status: Former smoker - Past Family History Mother Family Medical History: Hypertension Sister(s) Family Medical History: Cancer Additional Family Medical History / Comment(s): COLON Brother(s) Family Medical History: Cancer Additional Family Medical History / Comment(s): Prostate CA Medications and Allergies Home Medications Medication Instructions Recorded Confirmed Type Mometasone Furoate [Nasonex Nasal 2 sprays EA NOSTRIL DAILY 11/23/13 06/11/17 History [place]] Latanoprost Ophth [Xalatan 0.005%] 1 drops BOTH EYES HS 11/26/13 06/11/17 History Albuterol Sulfate [Proair Hfa] 2 puff INHALATION RT-Q4H PRN 01/25/14 06/11/17 History Butalbital/Aspirin/Caffeine 1 tab PO Q4H PRN 01/25/14 06/11/17 History [Fiorinal 50-325-40 MG] Biotin 5 mg PO DAILY 03/09/14 06/11/17 History Calcium Carbonate/Vitamin D3 1 tab PO TID 03/09/14 06/11/17 History [Calcium 500-Vit D3 400 Tablet] Cetirizine HCl [Zyrtec] 10 mg PO DAILY #60 tab 03/09/14 06/11/17 Rx Multivitamins, Thera [Multivitamin 1 tab PO DAILY 03/09/14 06/11/17 History (formulary)] HYDROcodone/APAP 7.5-325MG [[place] 1 tab PO BID PRN 03/16/15 06/11/17 History 7.5-325] Pregabalin [Lyrica] 75 mg PO BID 06/06/17 06/11/17 History Vitamin B 1 tab PO DAILY 06/06/17 06/11/17 History Vitamin D 1 tab PO DAILY 06/06/17 06/11/17 History Allergies Allergy/AdvReac Type Severity Reaction Status Date / Time aspirin Allergy Abdominal Verified 06/06/17 14:56 Pain Penicillins Allergy Itching Verified 06/06/17 14:56 environmental Allergy nose Uncoded 06/06/17 14:56 drainage, watery eyes, sneeze Surgical - Exam Vital Signs Temp Pulse Resp BP 97.7 F 64 14 142/75 06/11/17 07:08 06/11/17 07:08 06/11/17 07:08 06/11/17 07:08
--- NOTE | 2017-06-11 07:52 | P.PCN ---
Date of Procedure: 06/11/17 Description of Procedure: PREOPERATIVE DIAGNOSIS: Status post sleeve gastrectomy. Gastroesophageal reflux disease. Epigastric abdominal pain. Dysphagia. POSTOPERATIVE DIAGNOSIS: Status post sleeve gastrectomy. Gastroesophageal reflux disease. Epigastric abdominal pain. Dysphagia. Diaphragmatic hiatal hernia without obstruction. Gastric polyps antrum. OPERATION: Esophagogastroduodenoscopy with cold forceps biopsies along the antrum. SURGEON: Marta Sullivan MD ANESTHESIA: MAC. INDICATIONS: The patient is a 61-year-old female who presents with a history of sleeve gastrectomy with dysphagia. Benefits and risks of the procedure were described. Informed consent was obtained. DESCRIPTION: The patient was brought into the endoscopy suite and laid in the left lateral decubitus position. An Olympus gastroscope was passed along the posterior oropharynx down to the distal esophagus where the squamocolumnar junction was at 34 centimeters from the incisors with minimal LA grade A without ulceration. The distal esophagus was distorted with occassional angulations. The stomach was entered where she had a 3-cm hiatal hernia with a diaphragmatic hiatus found at 37 cm. The sleeve reservoir was normal limits without dilation. Gastric polyps 4 mm were at the pyloric sphincter and antrum with cold biopsies obtained. The first through third portion of the duodenum was examined and unremarkable. The stomach was desufflated. The patient tolerated the procedure well. FINDINGS: No acute ulceration found along her sleeve. No corkscrewing sleeve gastrectomy. Squamocolumnar junction at 34 cm from the incisors. Diaphragmatic hiatus at 37 cm. Normal gastric reservoir with prior history of sleeve gastrectomy without ability to retroflex. Hiatal hernia 3 cm, fixed. LA grade A erosive esophagitis. No active duodenitis. Gastric polyps. RECOMMENDATIONS: Upper endoscopy as needed. Recommend manometry for history of upper esophageal dysphagia. Plan - Discharge Summary New Discharge Prescriptions: No Action Mometasone Furoate [Nasonex Nasal [place]] 2 sprays EA NOSTRIL DAILY Latanoprost Ophth [Xalatan 0.005%] 1 drops BOTH EYES HS Albuterol Sulfate [Proair Hfa] 2 puff INHALATION RT-Q4H PRN PRN Reason: asthma Butalbital/Aspirin/Caffeine [Fiorinal 50-325-40 MG] 1 tab PO Q4H PRN PRN Reason: Migraine Headache Multivitamins, Thera [Multivitamin (formulary)] 1 tab PO DAILY Calcium Carbonate/Vitamin D3 [Calcium 500-Vit D3 400 Tablet] 1 tab PO TID Biotin 5 mg PO DAILY Cetirizine HCl [Zyrtec] 10 mg PO DAILY #60 tab HYDROcodone/APAP 7.5-325MG [[place] 7.5-325] 1 tab PO BID PRN PRN Reason: Pain Pregabalin [Lyrica] 75 mg PO BID Vitamin D 1 tab PO DAILY Vitamin B 1 tab PO DAILY Discharge Medication List Mometasone Furoate [Nasonex Nasal [place]] 2 sprays EA NOSTRIL DAILY 11/23/13 [ History] Latanoprost Ophth [Xalatan 0.005%] 1 drops BOTH EYES HS 11/26/13 [History] Albuterol Sulfate [Proair Hfa] 2 puff INHALATION RT-Q4H PRN 01/25/14 [History] Butalbital/Aspirin/Caffeine [Fiorinal 50-325-40 MG] 1 tab PO Q4H PRN 01/25/14 [ History] Biotin 5 mg PO DAILY 03/09/14 [History] Calcium Carbonate/Vitamin D3 [Calcium 500-Vit D3 400 Tablet] 1 tab PO TID [History] Cetirizine HCl [Zyrtec] 10 mg PO DAILY #60 tab 03/09/14 [Rx] Multivitamins, Thera [Multivitamin (formulary)] 1 tab PO DAILY 03/09/14 [History ] HYDROcodone/APAP 7.5-325MG [[place] 7.5-325] 1 tab PO BID PRN 03/16/15 [History] Pregabalin [Lyrica] 75 mg PO BID 06/06/17 [History] Vitamin B 1 tab PO DAILY 06/06/17 [History] Vitamin D 1 tab PO DAILY 06/06/17 [History]
[2017-06-11 07:58] VITALS: RESP 18
[2017-06-11 08:15] VITALS: BP 104/65; PULSE 72
== END 2017-06-11 08:45 | disposition home or self-care (01) ==
LOC: ORWHC2ENDO 06:41
PROVIDERS: ATTEND Surgery Plastic and Reconstructive Surgery
DX: K29.50 Unspecified chronic gastritis without bleeding (principal); K44.9 Diaphragmatic hernia without obstruction or gangrene; K31.7 Polyp of stomach and duodenum; Z98.84 Bariatric surgery status; Z87.891 Personal history of nicotine dependence; M19.90 Unspecified osteoarthritis, unspecified site; J45.909 Unspecified asthma, uncomplicated; H40.9 Unspecified glaucoma; Z86.73 Personal history of transient ischemic attack (TIA), and cerebral infarction without residual deficits; Z86.718 Personal history of other venous thrombosis and embolism; Z86.11 Personal history of tuberculosis; Z79.51 Long term (current) use of inhaled steroids; Z79.899 Other long term (current) drug therapy; Z88.6 Allergy status to analgesic agent; Z88.0 Allergy status to penicillin; Z91.09 Other allergy status, other than to drugs and biological substances
CPT/HCPCS: 88305; 43239; J2001; J2704

== ENCOUNTER → 2017-10-22 | Outpatient (CLI) | payer MEDICARE ==
[2017-10-22 13:42] LABS: T4, Free (Free Thyroxine) 0.81 ng/dL (0.78-2.19)
== END | disposition home or self-care (01) ==
LOC: LABWHC1 13:03
PROVIDERS: ATTEND Internal Medicine Endocrinology, Diabetes & Metabolism
DX: E05.90 Thyrotoxicosis, unspecified without thyrotoxic crisis or storm (principal)
CPT/HCPCS: 36415; 84439; 84443; 84480

== ENCOUNTER → 2017-11-26 | Outpatient (CLI) | payer MEDICARE ==
--- NOTE | 2017-11-26 16:15 | P.PN ---
Subjective Progress Note Date: 11/26/17 HPI: She reports the of her daughter in July. She reports thyroid issues. She reports weight gain from her thyroid disorder. Highest 365 pounds. She was 233 pounds and now has gained to 266 pounds. NECK: Decreased size of her thyroid gland. ABDOMEN: Tender along the epigastrium. PLAN: 1. EGD with dilation. 2. Will need revision to gastric bypass for intolerance to sleeve. 3. UGI regarding the sleeve
[2017-11-26 16:16] VITALS: BP 147/81; PULSE 91; RESP 16; TEMP 98.1; BMI 45.1
[2017-11-26 17:01] LABS: HCT 38.6 % (34.0-46.0); HGB 12.4 gm/dL (11.4-16.0); MCH 29.9 pg (25.0-35.0); MCHC 32.2 g/dL (31.0-37.0); MCV 92.9 fL (80.0-100.0); Mean Platelet Volume 7.8; Platelet Count 203 k/uL (150-450); RBC 4.15 m/uL (3.80-5.40); RDW 13.4 % (11.5-15.5); WBC 5.3 k/uL (3.8-10.6)
[2017-11-26 17:17] LABS: Prothrombin Time 10.1 sec (9.0-12.0)
[2017-11-26 17:23] LABS: ALT 31 U/L (9-52); AST 27 U/L (14-36); Albumin 3.1 g/dL (3.5-5.0); Alkaline Phosphatase 74 U/L (38-126); Anion Gap 4 mmol/L; Blood Urea Nitrogen 18 mg/dL (7-17); Calcium 8.9 mg/dL (8.4-10.2); Carbon Dioxide 31 mmol/L (22-30); Chloride 102 mmol/L (98-107); Cholesterol 163 mg/dL (<200); Glucose 85 mg/dL (74-99); HDL Cholesterol 60 mg/dL (40-60); LDL Cholesterol,Calculated 85 mg/dL (0-99); Phosphorus 4.4 mg/dL (2.5-4.5); Potassium 4.2 mmol/L (3.5-5.1); Sodium 137 mmol/L (137-145); Total Bilirubin 0.1 mg/dL (0.2-1.3); Total Protein 5.5 g/dL (6.3-8.2); Triglycerides 91 mg/dL (<150)
[2017-11-26 17:29] LABS: Partial Thromboplastin Time 21.2 sec (22.0-30.0)
[2017-11-27 00:56] LABS: Iron Saturation 17.67 (12.00-45.00); Vitamin D 25 Hydroxy 23.3 ng/mL (30.0-100.0)
[2017-11-27 01:06] LABS: Folate, Serum >24.0 ng/mL
[2017-11-27 01:17] LABS: Parathyroid Hormone Intact 84.9 pg/mL (14.0-72.0)
[2017-11-27 02:14] LABS: Hemoglobin A1C 5.3 % (4.0-6.0)
[2017-11-27 11:51] LABS: Vitamin B1 39 ug/L (38-122)
[2017-11-28 05:53] LABS: Vitamin A 52 ug/dL (38-106)
[2017-11-28 11:12] LABS: Zinc, Serum 56 ug/dL (60-130)
== END ==
LOC: BARWHC3 14:37
PROVIDERS: ATTEND Surgery Plastic and Reconstructive Surgery
DX: E66.01 Morbid (severe) obesity due to excess calories (principal); E07.9 Disorder of thyroid, unspecified; E21.1 Secondary hyperparathyroidism, not elsewhere classified; D50.9 Iron deficiency anemia, unspecified; E89.1 Postprocedural hypoinsulinemia; K90.9 Intestinal malabsorption, unspecified; E55.9 Vitamin D deficiency, unspecified; K74.1 Hepatic sclerosis; N19 Unspecified kidney failure; K50.90 Crohn's disease, unspecified, without complications; Z68.42 Body mass index [BMI] 45.0-49.9, adult
CPT/HCPCS: 84255; 84134; 84425; 80061; 80053; 82607; 82728; 82525; 82746; 83540; 83550; 83735; 84100; 84443; 84590; 84630; 85027; 85610; 85730; 82306; 83970; 83036; G0463; 99211

== ENCOUNTER 2018-02-04 08:47 | Day surgery (SDC) | payer MEDICARE ==
[2018-02-02 11:52] VITALS: BMI 45.6
--- NOTE | 2018-02-04 08:33 | P.GSHP ---
History of Present Illness H&P Date: 02/04/18 CHIEF COMPLAINT: GERD HISTORY OF PRESENT ILLNESS: The patient is a 62-year-old female who presents reports gastroesophageal reflux disease. Upper endoscopy was offered for further evaluation and management. PAST MEDICAL HISTORY: Please see list. PAST SURGICAL HISTORY: Please see list. MEDICATIONS: Please see list. ALLERGIES: Please see list. SOCIAL HISTORY: No illicit drug use FAMILY HISTORY: No reports of Crohn disease or ulcerative colitis. REVIEW OF ORGAN SYSTEMS: CONSTITUTIONAL: No reports of fevers or chills. GI: Denies any blood in stools or constipation. PHYSICAL EXAM: VITAL SIGNS: Stable GENERAL: Well-developed and pleasant in no acute distress. HEENT: No scleral icterus. Extraocular movements grossly intact. Moist buccal mucosa. NECK: Supple without lymphadenopathy. CHEST: Unlabored respirations. Equal bilateral excursions. CARDIOVASCULAR: Regular rate and rhythm. Distal 2+ pulses. ABDOMEN: Soft, nondistended. MUSCULOSKELETAL: No clubbing, cyanosis, or edema. ASSESSMENT: 1. Gastroesophageal reflux disease PLAN: 1. Recommend proceeding with an upper endoscopy Past Medical History Past Medical History: CVA/TIA, Deep Vein Thrombosis (DVT), Eye Disorder, GERD/ Reflux, Osteoarthritis (OA), Thyroid Disorder Additional Past Medical History / Comment(s): jayme carpal tunnel, nerve damage, migraine, obesity, HIATAL hernia, HX TIA X2, GLAUCOMA, DVT in 70's w/taking control, Treated for TB at age 3 to age 7, dysphagia recently History of Any Multi-Drug Resistant Organisms: None Reported Past Surgical History: Bariatric Surgery, Section, Cholecystectomy, Hernia Repair, Hysterectomy, Orthopedic Surgery Additional Past Surgical History / Comment(s): temporal biopsy, EGD, CARPAL TUNNEL X4, LEFT LEG SX, gastric sleeve 01/31/2014 Past Anesthesia/Blood Transfusion Reactions: No Reported Reaction Additional Past Anesthesia/Blood Transfusion Reaction / Comment(s): STATES "SPINAL WENT TOO HIGH" with labor. no blood transfusion, but will accept plasma. Smoking Status: Former smoker - Past Family History Mother Family Medical History: Hypertension Sister(s) Family Medical History: Cancer Additional Family Medical History / Comment(s): COLON Brother(s) Family Medical History: Cancer Additional Family Medical History / Comment(s): Prostate CA Medications and Allergies Home Medications Medication Instructions Recorded Confirmed Type Latanoprost Ophth [Xalatan 0.005%] 1 drops BOTH EYES HS 11/26/13 02/02/18 History Albuterol Sulfate [Proair Hfa] 2 puff INHALATION RT-Q4H PRN 01/25/14 02/02/18 History Butalbital/Aspirin/Caffeine 1 tab PO Q4H PRN 01/25/14 02/02/18 History [Fiorinal 50-325-40 MG] Biotin 5 mg PO DAILY 03/09/14 02/02/18 History Calcium Carbonate/Vitamin D3 1 tab PO DAILY 03/09/14 02/02/18 History [Calcium 500-Vit D3 400 Tablet] Multivitamins, Thera [Multivitamin 1 tab PO DAILY 03/09/14 02/02/18 History (formulary)] HYDROcodone/APAP 7.5-325MG [[place] 1 tab PO BID PRN 03/16/15 02/02/18 History 7.5-325] Omeprazole 40 mg PO DAILY #14 capsule. 06/11/17 02/02/18 Rx Cyclobenzaprine [Flexeril] 10 mg PO HS 02/02/18 02/02/18 History Ferrous Sulfate [Feosol] 325 mg PO DAILY 02/02/18 02/02/18 History Methimazole [Tapazole] 5 mg PO DAILY 02/02/18 02/02/18 History Niacin [Niaspan] 500 mg PO DAILY 02/02/18 02/02/18 History Zinc 50 mg PO DAILY 02/02/18 02/02/18 History Allergies Allergy/AdvReac Type Severity Reaction Status Date / Time aspirin Allergy Abdominal Verified 02/02/18 11:27 Pain Penicillins Allergy Itching Verified 02/02/18 11:27 environmental Allergy nose Uncoded 02/02/18 11:27 drainage, watery eyes, sneeze
[2018-02-04 11:23] VITALS: RESP 16; TEMP 97.7
[2018-02-04] MEDS ORDERED: PROPOFOL 10 MG/ML 20 ML VIAL IV ONE (11:38)
--- NOTE | 2018-02-04 11:55 | P.PCN ---
Date of Procedure: 02/04/18 Description of Procedure: PREOPERATIVE DIAGNOSIS: Dysphagia. Gastroesophageal reflux disease Upper esophageal sphincter hypertension POSTOPERATIVE DIAGNOSIS: Dysphagia. Gastroesophageal reflux disease Upper esophageal sphincter hypertension Gastric polyp along the antrum Gastritis with recent bleed along antrum Recurrent diaphragmatic hiatal hernia Gastric stenosis OPERATION: Esophagogastroduodenoscopy with cold biopsy forceps of antrum and gastric polyp Esophagogastroduodenoscopy with rigid dilator over the guidewire from 48 to 60 Fr. SURGEON: Marta Sullivan MD ANESTHESIA: MAC. INDICATIONS: The patient is a 62-year-old female who presents with a history of dysphagia. She reports trouble swallowing her pills. Benefits and risks of the procedure were described. Informed consent was obtained. DESCRIPTION: The patient was brought into the endoscopy suite and laid in the left lateral decubitus position. After a timeout was confirmed, the procedure was initiated. An Olympus gastroscope was passed and the stomach was entered. Active gastritis was identified including a 6 mm gastric polyp which were cold forceps biopsy. Recurrent diaphragmatic hiatal hernia of 2 cm was identified. A gastric sleeve demonstrated mild tortuosity. The scope was advanced to the duodenum which was unremarkable. Next using an [place] rigid dilator, a guidewire was placed through the pediatric gastroscope. Next the scope was withdrawn. A 51-[place] rigid [place] dilator was passed carefully along the posterior oropharynx to 50 cm and left in place for 2-3 minutes stretch. The dilator was withdrawn including the guidewire. The scope was reentered along the posterior oropharynx without findings of full-thickness tear of the upper esophageal sphincter. No full-thickness injury was encountered. The GI tract was desufflated. The patient tolerated the procedure well. FINDINGS: Squamocolumnar junction unremarkable at 40 cm. Stricture of upper esophagus, consistent with hypertensive upper esophageal sphincter. [place] rigid dilator 51-[place] completed. Diffuse gastritis along antrum with gastric polyp, both biopsied. Recurrent hiatal hernia, 2 cm No LA grade A esophagitis. RECOMMENDATIONS: Upper endoscopy as needed Plan - Discharge Summary New Discharge Prescriptions: No Action Latanoprost Ophth [Xalatan 0.005%] 1 drops BOTH EYES HS Albuterol Sulfate [Proair Hfa] 2 puff INHALATION RT-Q4H PRN PRN Reason: asthma Butalbital/Aspirin/Caffeine [Fiorinal 50-325-40 MG] 1 tab PO Q4H PRN PRN Reason: Migraine Headache Multivitamins, Thera [Multivitamin (formulary)] 1 tab PO DAILY Calcium Carbonate/Vitamin D3 [Calcium 500-Vit D3 400 Tablet] 1 tab PO DAILY Biotin 5 mg PO DAILY HYDROcodone/APAP 7.5-325MG [[place] 7.5-325] 1 tab PO BID PRN PRN Reason: Pain Omeprazole 40 mg PO DAILY #14 capsule. Methimazole [Tapazole] 5 mg PO DAILY Ferrous Sulfate [Feosol] 325 mg PO DAILY Cyclobenzaprine [Flexeril] 10 mg PO HS Zinc 50 mg PO DAILY Niacin [Niaspan] 500 mg PO DAILY Discharge Medication List Latanoprost Ophth [Xalatan 0.005%] 1 drops BOTH EYES HS 11/26/13 [History] Albuterol Sulfate [Proair Hfa] 2 puff INHALATION RT-Q4H PRN 01/25/14 [History] Butalbital/Aspirin/Caffeine [Fiorinal 50-325-40 MG] 1 tab PO Q4H PRN 01/25/14 [ History] Biotin 5 mg PO DAILY 03/09/14 [History] Calcium Carbonate/Vitamin D3 [Calcium 500-Vit D3 400 Tablet] 1 tab PO DAILY 04/10 [History] Multivitamins, Thera [Multivitamin (formulary)] 1 tab PO DAILY 03/09/14 [History ] HYDROcodone/APAP 7.5-325MG [[place] 7.5-325] 1 tab PO BID PRN 03/16/15 [History] Omeprazole 40 mg PO DAILY #14 capsule. 06/11/17 [Rx] Cyclobenzaprine [Flexeril] 10 mg PO HS 02/02/18 [History] Ferrous Sulfate [Feosol] 325 mg PO DAILY 02/02/18 [History] Methimazole [Tapazole] 5 mg PO DAILY 02/02/18 [History] Niacin [Niaspan] 500 mg PO DAILY 02/02/18 [History] Zinc 50 mg PO DAILY 02/02/18 [History]
[2018-02-04 12:17] VITALS: PULSE 81
[2018-02-04 12:24] VITALS: BP 128/79
== END 2018-02-04 12:41 | disposition home or self-care (01) ==
LOC: ORWHC2ENDO 08:47
PROVIDERS: ATTEND Surgery Plastic and Reconstructive Surgery
DX: K29.50 Unspecified chronic gastritis without bleeding (principal); K21.9 Gastro-esophageal reflux disease without esophagitis; K44.9 Diaphragmatic hernia without obstruction or gangrene; K22.8 Other specified diseases of esophagus; K31.89 Other diseases of stomach and duodenum; K22.2 Esophageal obstruction; H40.9 Unspecified glaucoma; M19.90 Unspecified osteoarthritis, unspecified site; E07.9 Disorder of thyroid, unspecified; G56.03 Carpal tunnel syndrome, bilateral upper limbs; G43.909 Migraine, unspecified, not intractable, without status migrainosus; E66.9 Obesity, unspecified; Z68.42 Body mass index [BMI] 45.0-49.9, adult; Z98.84 Bariatric surgery status; Z90.3 Acquired absence of stomach [part of]; Z90.49 Acquired absence of other specified parts of digestive tract; Z90.710 Acquired absence of both cervix and uterus; Z79.899 Other long term (current) drug therapy; Z86.718 Personal history of other venous thrombosis and embolism; Z86.73 Personal history of transient ischemic attack (TIA), and cerebral infarction without residual deficits; Z87.891 Personal history of nicotine dependence; Z88.6 Allergy status to analgesic agent; Z88.0 Allergy status to penicillin; Z91.09 Other allergy status, other than to drugs and biological substances
CPT/HCPCS: 88305; 43239; 43248; J2704; 43249

== ENCOUNTER → 2018-03-04 | Outpatient (CLI) | payer MEDICARE ==
[2018-03-04 15:37] VITALS: BP 138/65; PULSE 92; TEMP 97.6; BMI 47.0
--- NOTE | 2018-03-04 15:50 | P.PN ---
Subjective Progress Note Date: 03/04/18 DATE OF SERVICE: 03/04/18 CHIEF COMPLAINT: Follow-up sleeve gastrectomy. HISTORY OF PRESENT ILLNESS: She comes with complications sleeve gastrectomy. She has gained moderate weight from 225 pounds and now she is up to 274 pounds, almost 50 pounds. She has severe reflux disease. She has troubles with swallowing despite esophageal and stomach stretch. She has ENT doctor without any improvements of your symptoms. She has a advserse reaction of severe abdominal pain from dexamethasone 1 week ago. She comes in for a revision of her sleeve gastrectomy. Chelsey Mar is a 62-year-old female who is status post sleeve gastrectomy in January 2014. She is almost 4 years out. She reports the of her daughter in July 2017, 4 months ago. She reports thyroid disorder. She reports weight gain from her hypothyroidism. Her highest weight was 365 pounds. She was 250 pounds 8 months ago. Now she comes in 262 pounds. She has gained 13 pounds in 8 months. At her height of 5 feet 4 inches her ideal body weight is 144 pounds. Her highest weight was 365 pounds. She has maintained a 103 pound weight loss lifetime. Percent excess weight loss is 46%. Body mass index is reduced from 62.8 down to 45.1. She is still 118 pounds overweight. PAST MEDICAL HISTORY: 1. Morbid obesity, BMI 62.8 initial 2. Hypertension. 3. Blood glucose intolerance. 4. Thyroid nodules. 5. Diverticulosis. 6. Osteoarthritis of the lower back. PAST SURGICAL HISTORY: 1. Laparoscopic cholecystectomy. 2. EGD. 3. Sleeve gastrectomy. 4. Paraesophageal hiatal hernia repair. 5. Oophorectomy including exploratory laparotomy. 6. Colonoscopy. 7. Status post back surgery. MEDICATIONS: 1. Levothyroxine. 2. Vitamin A. 3. Thiamine. 4. Multivitamin. 5. Nasonex spray. 6. Robaxin. 7. Xalatan. 8. [place]. 9. Zyrtec. 10. Calcium with vitamin D. 11. Fiorinal. 12. Biotin. 13. Albuterol inhaler. ALLERGIES: 1. ASPIRIN. 2. PENICILLIN. SOCIAL HISTORY: Nontobacco user. FAMILY HISTORY: Pertinent for super morbid obesity. REVIEW OF SYSTEMS: CONSTITUTIONAL: At her height of 5 feet 4 inches her ideal body weight is 144 pounds. Her highest weight was 365 pounds. She has maintained a 103 pound weight loss lifetime. Percent excess weight loss is 46%. Body mass index is reduced from 62.8 down to 45.1. She is still 118 pounds overweight. MUSCULOSKELETAL: Reports recent lower back surgery with some improvement of symptoms. Has diffuse joint pain. GASTROINTESTINAL: Has gastroesophageal reflux disease. Reports trouble swallowing. ENDOCRINE: Has history of thyroid disorder and with her thyroid nodules. Prior history of blood sugar glucose intolerance. NEURO: Reports increased neuropathy of the distal lower extremities. CARDIOVASCULAR: Resolution of dyslipidemia including hypertension. RESPIRATORY: History obstructive sleep apnea moderately improved. HEENT: No trouble with vision or hearing. PSYCH: No reports of depression or suicidal ideation. HEMATOLOGIC: Denies any abnormal bleeding or bruising. PHYSICAL EXAM: VITAL SIGNS: 5 feet 4 inches; 262 pounds. Body mass index 45.1. Vital Signs Temp 98.1 F 11/26/17 16:10 Pulse 91 11/26/17 16:10 Resp 16 11/26/17 16:10 BP 147/81 11/26/17 16:10 Pulse Ox ABDOMEN: Soft, nondistended. Tender along the epigastrium. GENERAL: Well developed female in no acute distress. MUSCULOSKELETAL: No clubbing, cyanosis or edema. HEENT: No scleral icterus. Extraocular movements are intact. NECK: Thyromegaly with decreased size of her thyroid gland. Nontender. No lymphadenopathy. CHEST: Nonlabored respirations. Equal bilateral excursions. CARDIOVASCULAR: Regular rate. Regular rhythm. NEURO: No focal or lateralizing signs. Cranial nerves II to XII grossly intact. PSYCH: Appropriate affect. Alert and oriented to person, place and time. SKIN: Well perfused. Good skin turgor. ASSESSMENT: 1. Morbid obesity due to excess calories. 2. Body mass index reduced from 61.2 down to 45.1. 3. Status post sleeve gastrectomy. 4. Dysphagia. 5. Osteoarthritis of the lower back status post surgery. 6. Thyroid goiter. 7. Panniculitis. 8. Hypertensive heart disease. 9. History of asthma. 10. Bilateral lower extremity neuropathy, increasing. 11. Adequate protein intake. 12. Thiamine deficiency. 13. Vitamin D deficiency. 14. Hypothyroidism. 15. Secondary hyperparathyroidism. PLAN: 1. Recommend revision of sleeve gastrectomy. Objective - Vital Signs Vital signs: Vital Signs Temp 97.6 F 03/04/18 15:32 Pulse 92 03/04/18 15:32 Resp BP 138/65 03/04/18 15:32 Pulse Ox Intake & Output 03/03/18 03/04/18 03/04/18 18:59 06:59 18:59 Weight 124.284 kg
== END | disposition home or self-care (01) ==
LOC: BARWHC3 14:46
PROVIDERS: ATTEND Surgery Plastic and Reconstructive Surgery
DX: Z48.815 Encounter for surgical aftercare following surgery on the digestive system (principal); E66.01 Morbid (severe) obesity due to excess calories; R13.10 Dysphagia, unspecified; M47.816 Spondylosis without myelopathy or radiculopathy, lumbar region; E04.9 Nontoxic goiter, unspecified; M79.3 Panniculitis, unspecified; I11.9 Hypertensive heart disease without heart failure; G57.93 Unspecified mononeuropathy of bilateral lower limbs; E51.9 Thiamine deficiency, unspecified; E55.9 Vitamin D deficiency, unspecified; E03.9 Hypothyroidism, unspecified; N25.81 Secondary hyperparathyroidism of renal origin; J45.909 Unspecified asthma, uncomplicated; Z68.42 Body mass index [BMI] 45.0-49.9, adult; Z98.84 Bariatric surgery status; Z90.49 Acquired absence of other specified parts of digestive tract; Z98.890 Other specified postprocedural states; Z79.51 Long term (current) use of inhaled steroids; Z79.891 Long term (current) use of opiate analgesic; Z79.899 Other long term (current) drug therapy; Z88.0 Allergy status to penicillin; Z88.6 Allergy status to analgesic agent
CPT/HCPCS: 99211

== ENCOUNTER → 2018-05-04 | Outpatient (CLI) | payer MEDICARE, OTHER ==
[2018-05-04 11:43] VITALS: BMI 47.5
== END | disposition home or self-care (01) ==
LOC: BARWHC3 08:24
PROVIDERS: ATTEND Surgery Plastic and Reconstructive Surgery
DX: E66.01 Morbid (severe) obesity due to excess calories (principal); Z68.42 Body mass index [BMI] 45.0-49.9, adult
CPT/HCPCS: 97804

== ENCOUNTER → 2018-05-13 | Outpatient (CLI) | payer MEDICARE, OTHER ==
[2018-05-13 13:17] VITALS: BP 139/85; PULSE 83; TEMP 98.5; BMI 47.9
--- NOTE | 2018-05-13 13:38 | P.PN ---
Subjective Progress Note Date: 05/13/18 DATE OF SERVICE: 05/13/2018 CHIEF COMPLAINT: Complications from sleeve gastrectomy. HISTORY OF PRESENT ILLNESS: Chelsey Mar is a 62-year-old female who is status post sleeve gastrectomy in January 2014. She is over 4.5 years out. She reports chronic dysphagia and gastroesophageal reflux disease following her sleeve gastrectomy. She has had multiple dilations with minimal improvement of her symptoms. She also reports chronic epigastric abdominal pain. She also reports weight regain since her sleeve from 225 pounds to 278 pounds, over 50+ pound weight gain. At her height of 5 feet 4 inches her ideal body weight is 144 pounds. Her highest weight was 365 pounds. Today she comes in 278 pounds from 273 pounds, 2 months ago. She has gained 5 pounds in 2 months. She has maintained a 87 pound weight loss lifetime. Percent excess weight loss is 39 %. Body mass index is reduced from 62.8 down to 47.9. She is 134 pounds overweight. PAST MEDICAL HISTORY: 1. Morbid obesity, BMI 62.8 initial 2. Hypertension. 3. Blood glucose intolerance. 4. Thyroid nodules. 5. Diverticulosis. 6. Osteoarthritis of the lower back. 7. Gastroesophageal reflux disease PAST SURGICAL HISTORY: 1. Laparoscopic cholecystectomy. 2. EGD. 3. Sleeve gastrectomy. 4. Paraesophageal hiatal hernia repair. 5. Oophorectomy including exploratory laparotomy. 6. Colonoscopy. 7. Status post back surgery. MEDICATIONS: 1. Levothyroxine. 2. Vitamin A. 3. Thiamine. 4. Multivitamin. 5. Nasonex spray. 6. Robaxin. 7. Xalatan. 8. [place]. 9. Zyrtec. 10. Calcium with vitamin D. 11. Fiorinal. 12. Biotin. 13. Albuterol inhaler. ALLERGIES: 1. ASPIRIN. 2. PENICILLIN. SOCIAL HISTORY: Nontobacco user. FAMILY HISTORY: Pertinent for super morbid obesity. REVIEW OF SYSTEMS: CONSTITUTIONAL: At her height of 5 feet 4 inches her ideal body weight is 144 pounds. Her highest weight was 365 pounds. Body mass index is reduced from 62.8. MUSCULOSKELETAL: Reports lower back pain. Has diffuse joint pain. GASTROINTESTINAL: Has gastroesophageal reflux disease. Reports trouble swallowing. ENDOCRINE: Has history of thyroid disorder and with her thyroid nodules. Prior history of blood sugar glucose intolerance. NEURO: Reports increased neuropathy of the distal lower extremities. CARDIOVASCULAR: Resolution of dyslipidemia. Has hypertension. RESPIRATORY: History obstructive sleep apnea moderately improved. HEENT: No trouble with vision or hearing. PSYCH: No reports of depression or suicidal ideation. HEMATOLOGIC: Denies any abnormal bleeding or bruising. SKIN: No rash or skin cancer. PHYSICAL EXAM: VITAL SIGNS: 5 feet 4 inches; 278 pounds. Body mass index 47.9 Vital Signs Temp 98.5 F 05/13/18 13:14 Pulse 83 05/13/18 13:14 Resp BP 139/85 05/13/18 13:14 Pulse Ox ABDOMEN: Soft, nondistended. Nontender. GENERAL: Well developed female in no acute distress. MUSCULOSKELETAL: No clubbing, cyanosis or edema. HEENT: No scleral icterus. Extraocular movements are intact. Head is atraumatic , normocephalic. Hears conversational speech. NECK: Nontender. No lymphadenopathy. CHEST: Nonlabored respirations. Equal bilateral excursions. CARDIOVASCULAR: Regular rate. Regular rhythm. 2+ radial pulses NEURO: No focal or lateralizing signs. Cranial nerves II to XII grossly intact. PSYCH: Appropriate affect. Alert and oriented to person, place and time. SKIN: Well perfused. Good skin turgor. ASSESSMENT: 1. Morbid obesity due to excess calories. 2. Body mass index reduced from 61.2 down to 47.9 3. Status post sleeve gastrectomy. 4. Dysphagia. 5. Osteoarthritis of the lower back status post surgery. 6. Thyroid goiter. 7. Panniculitis. 8. Hypertensive heart disease. 9. History of asthma. 10. Bilateral lower extremity neuropathy 11. Adequate protein intake. 12. Thiamine deficiency. 13. Vitamin D deficiency. 14. Hypothyroidism. 15. Secondary hyperparathyroidism. 16. Complications from sleeve gastrectomy. PLAN: 1. Recommend revision of sleeve gastrectomy to gastric bypass to correct underlying gastroesophageal reflux disease. Benefits and risks including but not limited to bleeding, infection, leaks, gastrojejunal stricture and ulcers, inadequate weight loss, nutritional deficiencies were reviewed in detail. She is intermediate to high risk of surgical complications as a revisional procedure 2. Robotic assisted approach reviewed. 3. An 8 page second-generation bariatric consent form was reviewed in detail including potential of bleeding, infection, leaks, adequate weight loss, nutritional deficiencies which the patient demonstrated understanding of the risks. 4. A 2 week high-protein low caloric 800 kcal diet described to address hepatomegaly. 5. Preoperative labs including complete metabolic panel and CBC with type and screen recommended. 6. DVT prophylaxis per [place] [facility]. 7. Antibiotic prophylaxis. 8. Inpatient hospitalization anticipated for more than 2 nights. 9. All questions and concerns were addressed with the patient. Objective - Vital Signs Vital signs: Vital Signs Temp 98.5 F 05/13/18 13:14 Pulse 83 05/13/18 13:14 Resp BP 139/85 05/13/18 13:14 Pulse Ox Intake & Output 05/12/18 05/13/18 05/13/18 18:59 06:59 18:59 Weight 126.552 kg
== END | disposition home or self-care (01) ==
LOC: BARWHC3 12:31
PROVIDERS: ATTEND Surgery Plastic and Reconstructive Surgery
DX: K95.89 Other complications of other bariatric procedure (principal); R13.10 Dysphagia, unspecified; K21.9 Gastro-esophageal reflux disease without esophagitis; G89.29 Other chronic pain; R10.13 Epigastric pain; R63.4 Abnormal weight loss; E66.01 Morbid (severe) obesity due to excess calories; M47.816 Spondylosis without myelopathy or radiculopathy, lumbar region; E04.9 Nontoxic goiter, unspecified; R63.8 Other symptoms and signs concerning food and fluid intake; M79.3 Panniculitis, unspecified; I11.9 Hypertensive heart disease without heart failure; J45.909 Unspecified asthma, uncomplicated; G57.93 Unspecified mononeuropathy of bilateral lower limbs; E51.9 Thiamine deficiency, unspecified; E55.9 Vitamin D deficiency, unspecified; E03.9 Hypothyroidism, unspecified; N25.81 Secondary hyperparathyroidism of renal origin; Z98.890 Other specified postprocedural states; Z79.899 Other long term (current) drug therapy; Z79.891 Long term (current) use of opiate analgesic; Z88.0 Allergy status to penicillin; Z98.84 Bariatric surgery status; Z68.42 Body mass index [BMI] 45.0-49.9, adult; Z88.6 Allergy status to analgesic agent; Z83.49 Family history of other endocrine, nutritional and metabolic diseases
CPT/HCPCS: 99211

== ENCOUNTER → 2018-05-15 | Outpatient (CLI) | payer MEDICARE, OTHER ==
--- NOTE | 2018-05-15 16:54 | BD ---
EXAMINATION TYPE: Axial Bone Density DATE OF EXAM: 05/15/2018 COMPARISON: NONE CLINICAL HISTORY: Height: 64.5 Weight: 277.8 Alcohol (3 or more units per day): no Family History (Parent hip fracture): no Glucocorticoids (More than 3mos): no (Ex: prednisone, prednisolone, methylprednisolone, dexamethasone, and hydrocortisone). History of Fracture in Adulthood: yes Secondary Osteoporosis: 1. Type 1 Diabetes: no 2. Hyperthyroidism: no 3. Menopause before 45: no 4. Malnutrition: no 5. Chronic liver disease: no Rheumatoid Arthritis: no Current Tobacco Use: no RISK FACTORS HISTORY OF: Surgery to Spine/Hip(right/left)/Wrist (right/left): lumbar spine When: 2016 Family History of Osteoporosis: no Active: yes Diet low in dairy products/other sources of calcium: no Postmenopausal woman: partial hysterectomy age 32/ ovaries out at 59 Lost more than 2 inches in height since high school: no MEDICATIONS: hydrocodone, stroke meds, vitamins, Thyroid Medications: thyroid How Lon year Additional History: bariatric surgery EXAM MEASUREMENTS: Bone mineral densitometry was performed using the [employer] System. Bone mineral density about the R hip (g/cm2): 1.179 Bone mineral density about the L hip (g/cm2): 1.033 T Score values are as follows: -----R Neck: 1.0 -----L Neck: 0.0 -----R Total: 1.4 -----L Total: 0.7 Bone mineral density : baseline Bone mineral density about the L Wrist (g/cm2): 0.667 T Score values are as follows: -----Dist. R+U: 0.8 -----Prox. R+U: 0.3 -----Radius total: -0.1 Bone mineral density : baseline IMPRESSION: Normal (Values between +1 and -1 indicate normal bone mass). Consider repeating this study in 5 year s or sooner if there is some new clinical indication. NOTE: T-SCORE=SD OF THE YOUNG ADULT MEAN.
--- NOTE | 2018-05-21 14:14 | MM ---
Reason for exam: screening (asymptomatic). Last mammogram was performed 2 years ago. MG Screening Mammo w CAD Bilateral CC and MLO view(s) were taken. Prior study comparison: May 02, 2016, bilateral MG screening mammo w CAD. December 31, 2013, bilateral MG screening mammo w CAD. The breast tissue is heterogeneously dense. This may lower the sensitivity of mammography. Dense tissues in the upper outer quadrant's on a background of scattered densities. No significant changes when compared with prior studies. ASSESSMENT: Negative, BI-RAD 1 RECOMMENDATION: Routine screening mammogram of both breasts in 1 year.
== END | disposition home or self-care (01) ==
LOC: RADMAMWWP 14:25
PROVIDERS: ATTEND Family Medicine
DX: Z12.31 Encounter for screening mammogram for malignant neoplasm of breast (principal); Z78.0 Asymptomatic menopausal state
CPT/HCPCS: 77067; 77080

== ENCOUNTER → 2018-05-28 | Outpatient (CLI) | payer MEDICARE, OTHER ==
[2018-05-28 15:22] LABS: Basophils % (A) 1 %; Eosinophils # (A) 0.1 k/uL (0-0.7); Eosinophils % (A) 2 %; HCT 47.5 % (34.0-46.0); Lymphocytes # (A) 2.4 k/uL (1.0-4.8); Lymphocytes % (A) 40 %; MCH 29.4 pg (25.0-35.0); MCHC 31.5 g/dL (31.0-37.0); MCV 93.3 fL (80.0-100.0); Mean Platelet Volume 7.4; Monocytes # (A) 0.3 k/uL (0-1.0); Monocytes % (A) 4 %; Neutrophils # (A) 3.1 k/uL (1.3-7.7); Neutrophils % (A) 51 %; Platelet Count 232 k/uL (150-450); RBC 5.09 m/uL (3.80-5.40); RDW 13.4 % (11.5-15.5); WBC 6.1 k/uL (3.8-10.6)
[2018-05-28 20:17] LABS: Albumin 3.3 g/dL (3.80-4.90); Albumin/Globulin Ratio 1.94 (1.20-2.10); Anion Gap 6.7 mmol/L (4.00-12.00); Calcium 8.6 mg/dL (8.7-10.3); Carbon Dioxide 27.3 mmol/L (21.6-31.8); Globulin 1.7 g/dL (1.6-3.3); Potassium 4.5 mmol/L (3.5-5.5); Total Bilirubin 0.2 mg/dL (0.2-1.2)
== END | disposition home or self-care (01) ==
LOC: LABWHC1 14:32
PROVIDERS: ATTEND Surgery Plastic and Reconstructive Surgery
DX: Z01.812 Encounter for preprocedural laboratory examination (principal)
CPT/HCPCS: 36415; 80053; 85025

== ENCOUNTER 2018-06-01 09:22 | Inpatient (IN) | payer MEDICARE, OTHER ==
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
[~2018-06-01 09:22] MED LIST changes: +CHLORHEXIDINE GLUCONATE 15 ML CUP MUCOUS MEM ONE; +DEXAMETHASONE SOD PHOSPHATE 10 MG/ML 1 ML VIAL IV ONE; +ENOXAPARIN 40 MG/0.4 ML SYRINGE SQ STA; -LACTATED RINGERS 1,000 ML IV SCH; +MIDAZOLAM (PF) 2 MG/2 ML VIAL IV PRN; +PANTOPRAZOLE 40 MG/10 ML VIAL IV STA; +SCOPOLAMINE 1.5MG/72HR PATCH TRANSDERM ONE
[2018-06-01] MEDS ORDERED: LIDOCAINE 1% 20 ML VIAL (10MG/ML) FOR IV START INTRADERMA ONE (12:03)
[2018-06-01] MEDS: LACTATED RINGERS 1,000 ML IV SCH (12:04)
[2018-06-01] MEDS: ONDANSETRON 4 MG/2 ML VIAL IVP ONE ×2 (12:06→15:44)
[2018-06-01] MEDS ORDERED: PROPOFOL 10 MG/ML 20 ML VIAL IV ONE (13:33)
[2018-06-01] MEDS ORDERED: fentaNYL (PF) 50 MCG/ML 2 ML AMP ONE (13:33)
[2018-06-01] MEDS ORDERED: LIDOCAINE 1% INJ 10MG/ML (20 ML MDV) ONE (13:33)
[2018-06-01] MEDS ORDERED: MIDAZOLAM 2 MG/2 ML VIAL ONE (13:33)
[2018-06-01] MEDS ORDERED: NEOSTIGMINE 1 MG/ML 10 ML VIAL ONE (13:33)
[2018-06-01] MEDS ORDERED: SUCCINYLCHOLINE CHLORIDE 100 MG/5 ML SYR IV ONE (13:33)
[2018-06-01] MEDS ORDERED: GLYCOPYRROLATE 0.2 MG/ML 2 ML VIAL ONE (13:33)
[2018-06-01] MEDS ORDERED: ROCURONIUM BROMIDE 10 MG/ML 10 ML VIAL IV ONE (13:33)
[2018-06-01] MEDS ORDERED: BUPIVACAIN-EPI 0.25%-1:200,000 30 ML VIAL SQ ONE (14:20)
[2018-06-01] MEDS ORDERED: LACTATED RINGERS 1,000 ML IV ONE (15:10)
[2018-06-01] MEDS ORDERED: HYDROmorphone 1 MG/ML 1 ML SYRINGE IVP PRN (15:53)
[2018-06-01] MEDS ORDERED: NALOXONE 0.4 MG/ML 1 ML VIAL IV PRN (15:53)
[2018-06-01] MEDS ORDERED: SIMETHICONE 40 MG/0.6 ML DROPS 2,000 MG/30 ML BOTTLE PO PRN (15:53)
[2018-06-01] MEDS ORDERED: ACETAMINOPHEN IV (For NPO) 1,000 MG in EMPTY BAG 1 BAG IVPB ONE (15:53)
[2018-06-01] MEDS ORDERED: HYDROcodone/APAP 15 ML SOLUTION PO PRN (15:53)
[2018-06-01] MEDS ORDERED: ONDANSETRON 4 MG/2 ML VIAL IVP PRN (15:53)
--- NOTE | 2018-06-01 15:53 | P.OP ---
Date of Procedure: 06/01/18 Description of Procedure: SURGEON: JENNIFER SANDOVAL MD PREOPERATIVE DIAGNOSES: 1. Morbid obesity due to excess calories. 2. Body mass index reduced from 61.2 down to 46.2 3. Status post sleeve gastrectomy. 4. Dysphagia. 5. Osteoarthritis of the lower back status post surgery. 6. Thyroid goiter. 7. Panniculitis. 8. Hypertensive heart disease. 9. History of asthma. 10. Bilateral lower extremity neuropathy 11. Hypothyroidism. 12. Secondary hyperparathyroidism. 13. Complications from sleeve gastrectomy. 14. History of multiple abdominal procedures POSTOPERATIVE DIAGNOSES: 1. Morbid obesity due to excess calories. 2. Body mass index reduced from 61.2 down to 46.2 3. Status post sleeve gastrectomy. 4. Dysphagia. 5. Osteoarthritis of the lower back status post surgery. 6. Thyroid goiter. 7. Panniculitis. 8. Hypertensive heart disease. 9. History of asthma. 10. Bilateral lower extremity neuropathy 11. Hypothyroidism. 12. Secondary hyperparathyroidism. 13. Complications from sleeve gastrectomy. 14. History of multiple abdominal procedures 15. Severe peritoneal adhesions throughout the abdomen. OPERATION: 1. Robotic-assisted da Duke Xi laparoscopic extensive lysis of adhesions over 1 hour COMPLICATIONS: None. Anesthesia: GETA, local Estimated Blood Loss (ml): 5 Pathology: none sent Condition: stable Disposition: floor Operative Findings: 1. Diffuse intra-abdominal adhesions prohibiting view of epigastrium including stomach requiring extensive lysis of adhesions over 1 hour 2. Gastric bypass portion of the case aborted due to severity of adhesions. INDICATIONS: The patient is a 62-year-old female who presents with gastroesophageal reflux and complications from her sleeve gastrectomy. Surgical intervention of gastric bypass was described. Informed consent was obtained. Robotic assisted laparoscopic approach was described. Benefits and risks of the procedure including but not limited to bleeding, infection, injury to the small bowel was described. Informed consent was obtained. DESCRIPTION OF PROCEDURE: Patient was brought to the operating room, placed in supine position. After general induction, the abdomen had been prepped and draped in standard sterile fashion. The robotic da Duke XI system was primed. After a timeout protocol was performed, the patient had been prepped and draped in standard sterile fashion. A 5 mm 0 degrees laparoscopic trocar entry was performed along the left upper quadrant. The abdomen was insufflated to 15 mmHg pressure which she tolerated well. Diagnostic laparoscopy demonstrated severe intra-abdominal adhesions involving perihepatic adhesions, midline, bilateral upper abdomen, epigastrium, and pelvis. As a result of this finding, gastric bypass was aborted. The robot was docked along the left lateral abdomen. The patient was repositioned in mild Trendelenberg with 6 -degrees left side up. Next, three 8 mm robotic ports were placed along the lower left abdomen. A separate attempted placement of the trocar at the left costal margin was unsuccessful due to adhesions. Please note that the ports were placed at least 8 cm away from each other. Instruments were interchanged using grasper, scissors and vessel sealer. I had sat at the console. Extensive lysis of adhesions over 1 hour was performed using blunt and sharp dissection. Carefully the adhesions were taken down without injury to the small bowel using vessel sealer and scissors. Severe adhesions along the left upper quadrant to the stomach was also freed. Omental adhesions were freed throught out the abdomen with minimal bleeding using Vessel sealer. Hemostasis was excellent. The robot was undocked. All pneumoperitoneum and instruments were evacuated from the abdominal cavity. The incisions were reapproximated using 4-0 Monocryl in an interrupted subcuticular fashion. Please note along the trocar sites, local anesthetic was placed as a field block prior to insertion of all instruments. The skin was cleansed. Liquid glue was applied to the skin. At the end of the procedure needle, sponge, and instrument count had been verified correct by the surgical aides teacher. The patient was transferred to postanesthesia care unit in stable condition. The patient's lea Galeas was called over the phone with intraoperative findings described including aborted gastric bypass which may be attempted at a another time.
[2018-06-01] MEDS: HYDROmorphone 0.5 MG/0.5 ML SYRINGE IVP PRN ×3 (15:56→16:24)
[2018-06-01] MEDS ORDERED: ASPIRIN PO PRN (15:58)
[2018-06-01] MEDS ORDERED: CAFFEINE PO PRN (15:58)
[2018-06-01] MEDS ORDERED: BUTALBITAL PO PRN (15:58)
[2018-06-01] MEDS: ALBUTEROL NEBULIZED 2.5 MG/3 ML INHALATION SCH ×2 (17:31→21:02)
[2018-06-01 18:03] VITALS: BMI 45.3
[2018-06-01] MEDS ORDERED: LATANOPROST 0.005% OPHTH DROPS 2.5 ML BTL BOTH EYES SCH (21:00)
[2018-06-01] MEDS ORDERED: CYCLOBENZAPRINE 10 MG TAB PO SCH (21:00)
[2018-06-01] MEDS ORDERED: DESIPRAMINE 25 MG TAB PO SCH (21:00)
[2018-06-01] MEDS: 0.9% NACL WITH KCL 20 MEQ/L 1,000 ML IV SCH ×2 (22:22→23:45)
[2018-06-01] MEDS: CLINDAMYCIN 900 MG in DEXTROSE 5% IN WATER 50 ML IVPB SCH ×2 (23:42)
[2018-06-02] MEDS: HYDROcodone/APAP 7.5-325MG 1 EACH TAB PO PRN ×2 (03:58→10:32)
[2018-06-02] MEDS: LACTATED RINGERS 1,000 ML IV SCH (04:52)
[2018-06-02] MEDS: 0.9% NACL WITH KCL 20 MEQ/L 1,000 ML IV SCH (05:20)
[2018-06-02] MEDS: CLINDAMYCIN 900 MG in DEXTROSE 5% IN WATER 50 ML IVPB SCH ×2 (05:20)
[2018-06-02] MEDS: ALBUTEROL NEBULIZED 2.5 MG/3 ML INHALATION SCH ×2 (07:59→12:15)
[2018-06-02] MEDS ORDERED: 1: MVI, ADULT NO.4 WITH VIT K 10 ML, THIAMINE 100 MG, FOLIC ACID 1 MG, POTASSIUM CHLORID IV SCH ×6 (08:00)
[2018-06-02 08:04] VITALS: RESP 12
[2018-06-02 08:08] LABS: Basophils % (A) 1 %; Eosinophils % (A) 0 %; HGB 12.1 gm/dL (11.4-16.0); Lymphocytes # (A) 1.4 k/uL (1.0-4.8); Lymphocytes % (A) 22 %; MCH 29.7 pg (25.0-35.0); MCHC 31.8 g/dL (31.0-37.0); MCV 93.5 fL (80.0-100.0); Mean Platelet Volume 8.1; Monocytes # (A) 0.4 k/uL (0-1.0); Monocytes % (A) 5 %; Neutrophils # (A) 4.6 k/uL (1.3-7.7); Neutrophils % (A) 71 %; Platelet Count 226 k/uL (150-450); RBC 4.06 m/uL (3.80-5.40); RDW 13.5 % (11.5-15.5); WBC 6.5 k/uL (3.8-10.6)
[2018-06-02 08:23] LABS: Anion Gap 3 mmol/L; Blood Urea Nitrogen 12 mg/dL (7-17); Calcium 8.4 mg/dL (8.4-10.2); Carbon Dioxide 27 mmol/L (22-30); Chloride 106 mmol/L (98-107); Phosphorus 3.8 mg/dL (2.5-4.5); Potassium 5.8 mmol/L (3.5-5.1); Sodium 136 mmol/L (137-145)
[2018-06-02] MEDS ORDERED: ENOXAPARIN 40 MG/0.4 ML SYRINGE SQ SCH (09:00)
[2018-06-02] MEDS ORDERED: PANTOPRAZOLE 40 MG/10 ML VIAL IV SCH (09:00)
[2018-06-02] MEDS ORDERED: METHIMAZOLE 5 MG TAB PO SCH (09:00)
[2018-06-02 09:16] VITALS: BP 103/65; PULSE 90; TEMP 98
--- NOTE | 2018-06-02 14:55 | P.DS ---
Providers Date of admission: 06/01/18 11:23 Expected date of discharge: 06/02/18 Attending physician: Marta Sullivan Primary care physician: Shaheen Lora - Discharge Diagnosis(es) (1) Abdominal adhesions Status: Acute (2) Morbid obesity Status: Acute (3) History of sleeve gastrectomy Status: Chronic Hospital Course: 62-year-old -Greek female with a history of sleeve gastrectomy who underwent surgery yesterday by Dr. Sullivan. Patient was scheduled to have gastric bypass, however this portion of the case was aborted due to diffuse intra-abdominal adhesions prohibiting view of the epigastrium including the stomach requiring extensive lysis of adhesions for over 1 hour. The patient is doing well postoperatively. She denies pain or discomfort. Vital signs are stable. Patient was deemed stable for discharge home today. She is to follow up with Dr. Sullivan on June 05 at which time she will discuss possibility of gastric bypass being attempted in the future. DISCHARGE DIAGNOSIS: 1. Morbid obesity due to excess calories. 2. Body mass index reduced from 61.2 down to 46.2 3. Status post sleeve gastrectomy. 4. Dysphagia. 5. Osteoarthritis of the lower back status post surgery. 6. Thyroid goiter. 7. Panniculitis. 8. Hypertensive heart disease. 9. History of asthma. 10. Bilateral lower extremity neuropathy 11. Hypothyroidism. 12. Secondary hyperparathyroidism. 13. Complications from sleeve gastrectomy. 14. History of multiple abdominal procedures 15. Severe peritoneal adhesions throughout the abdomen. Nurse practitioner note has been reviewed by physician. Signing provider agrees with the documented findings, assessment, and plan of care. Plan - Discharge Summary Discharge Rx Participant: Yes New Discharge Prescriptions: No Action Latanoprost Ophth [Xalatan 0.005%] 1 drops BOTH EYES HS Albuterol Sulfate [Proair Hfa] 2 puff INHALATION RT-Q4H PRN PRN Reason: asthma Butalbital/Aspirin/Caffeine [Fiorinal 50-325-40 MG] 1 tab PO Q4H PRN PRN Reason: Migraine Headache Multivitamins, Thera [Multivitamin (formulary)] 1 tab PO DAILY Calcium Carbonate/Vitamin D3 [Calcium 500-Vit D3 400 Tablet] 1 tab PO DAILY Biotin 5 mg PO DAILY HYDROcodone/APAP 7.5-325MG [[place] 7.5-325] 1 tab PO QID Omeprazole 40 mg PO DAILY #14 capsule. Methimazole [Tapazole] 5 mg PO DAILY Cyclobenzaprine [Flexeril] 10 mg PO HS Niacin [Niaspan] 500 mg PO DAILY Desipramine HCl [Norpramin] 50 mg PO HS Discharge Medication List Latanoprost Ophth [Xalatan 0.005%] 1 drops BOTH EYES HS 11/26/13 [History] Albuterol Sulfate [Proair Hfa] 2 puff INHALATION RT-Q4H PRN 01/25/14 [History] Butalbital/Aspirin/Caffeine [Fiorinal 50-325-40 MG] 1 tab PO Q4H PRN 01/25/14 [ History] Biotin 5 mg PO DAILY 03/09/14 [History] Calcium Carbonate/Vitamin D3 [Calcium 500-Vit D3 400 Tablet] 1 tab PO DAILY 04/10 [History] Multivitamins, Thera [Multivitamin (formulary)] 1 tab PO DAILY 03/09/14 [History ] HYDROcodone/APAP 7.5-325MG [[place] 7.5-325] 1 tab PO QID 03/16/15 [History] Omeprazole 40 mg PO DAILY #14 capsule. 06/11/17 [Rx] Cyclobenzaprine [Flexeril] 10 mg PO HS 02/02/18 [History] Methimazole [Tapazole] 5 mg PO DAILY 02/02/18 [History] Niacin [Niaspan] 500 mg PO DAILY 02/02/18 [History] Desipramine HCl [Norpramin] 50 mg PO HS 05/18/18 [History] Follow up Appointment(s)/Referral(s): Marta Sullivan MD [STAFF PHYSICIAN] - 06/09/18 2:20 pm Patient Instructions/Handouts: Lysis of Abdominal Adhesions (DC) Activity/Diet/Wound Care/Special Instructions: No lifting over 10 pounds You may shower. No soaking or tub baths Very light activity until you are reevaluated at your follow up appointment with your surgeon Resume normal diet Discharge Disposition: HOME SELF-CARE
--- NOTE | 2018-06-02 19:27 | P.PN ---
Progress Note - Text Progress Note Date: 06/02/18 I called patient at home regarding any questions about discharge. She states that she is feeling well and will follow up in the bariatric center this Friday
== END 2018-06-02 13:30 | disposition home or self-care (01) | DRG 336 ==
LOC: 2ORMAIN 11:23 → 4SSUR 16:36
PROVIDERS: ADMIT Surgery Plastic and Reconstructive Surgery; ATTEND Surgery Plastic and Reconstructive Surgery
PROC: 0DNW4ZZ Release Peritoneum, Percutaneous Endoscopic Approach (ICD-10-PCS; principal; 2018-06-01 13:20)
DX: K95.89 Other complications of other bariatric procedure (principal); Z68.42 Body mass index [BMI] 45.0-49.9, adult; N25.81 Secondary hyperparathyroidism of renal origin; E51.9 Thiamine deficiency, unspecified; K66.0 Peritoneal adhesions (postprocedural) (postinfection); E66.01 Morbid (severe) obesity due to excess calories; R13.10 Dysphagia, unspecified; I11.9 Hypertensive heart disease without heart failure; E03.9 Hypothyroidism, unspecified; E04.9 Nontoxic goiter, unspecified; K21.9 Gastro-esophageal reflux disease without esophagitis; Z53.09 Procedure and treatment not carried out because of other contraindication; E11.42 Type 2 diabetes mellitus with diabetic polyneuropathy; J45.909 Unspecified asthma, uncomplicated; E55.9 Vitamin D deficiency, unspecified; H40.9 Unspecified glaucoma; G89.29 Other chronic pain; M79.3 Panniculitis, unspecified; Z79.899 Other long term (current) drug therapy; Z90.710 Acquired absence of both cervix and uterus; Z87.891 Personal history of nicotine dependence; Z86.73 Personal history of transient ischemic attack (TIA), and cerebral infarction without residual deficits; Z82.49 Family history of ischemic heart disease and other diseases of the circulatory system; Z86.718 Personal history of other venous thrombosis and embolism
CPT/HCPCS: 80051; 82310; 82565; 83735; 84100; 84520; 85025; 86850; 86900; 86901; 94640

== ENCOUNTER → 2018-06-05 | Outpatient (CLI) | payer MEDICARE, OTHER ==
[2018-06-05 11:11] VITALS: BP 116/76; PULSE 82; TEMP 97.6; BMI 46.7
--- NOTE | 2018-06-05 12:31 | P.PN ---
Subjective Progress Note Date: 06/05/18 DATE OF SERVICE: 06/05/2018 CHIEF COMPLAINT: Complications from sleeve gastrectomy. HISTORY OF PRESENT ILLNESS: Chelsey Mar is a 62-year-old female who is status post attempted gastric bypass for lysis of adhesions, POD 4. Her pain is controlled. At her height of 5 feet 4 inches her ideal body weight is 144 pounds. Her highest weight was 365 pounds. Today she comes in 271 pounds from 278 pounds, 1 month ago. She has lost 7 pounds in 1 month. She has maintained a 94 pound weight loss lifetime. Percent excess weight loss is 42 %. Body mass index is reduced from 62.8 down to 46.7. PHYSICAL EXAM: VITAL SIGNS: 5 feet 4 inches; 271 pounds. Body mass index 46.7 Vital Signs Temp 97.6 F 06/05/18 11:08 Pulse 82 06/05/18 11:08 Resp BP 116/76 06/05/18 11:08 Pulse Ox ABDOMEN: Soft, nondistended. Nontender. Incisions are clean, dry, and intact GENERAL: Well developed female in no acute distress. MUSCULOSKELETAL: No clubbing, cyanosis or edema. HEENT: No scleral icterus. Extraocular movements are intact. Head is atraumatic , normocephalic. Hears conversational speech. NECK: Nontender. No lymphadenopathy. CHEST: Nonlabored respirations. Equal bilateral excursions. CARDIOVASCULAR: Regular rate. Regular rhythm. 2+ radial pulses NEURO: No focal or lateralizing signs. Cranial nerves II to XII grossly intact. PSYCH: Appropriate affect. Alert and oriented to person, place and time. SKIN: Well perfused. Good skin turgor. ASSESSMENT: 1. Morbid obesity due to excess calories. 2. Body mass index reduced from 61.2 down to 46.7 3. Status post sleeve gastrectomy. 4. Complications from sleeve gastrectomy. PLAN: 1. Case aborted for gastric bypass due to severe scar tissue. 2. Will reschedule for another day. Objective - Vital Signs Vital signs: Vital Signs Temp 97.6 F 06/05/18 11:08 Pulse 82 06/05/18 11:08 Resp BP 116/76 06/05/18 11:08 Pulse Ox Intake & Output 06/04/18 06/05/18 06/05/18 18:59 06:59 18:59 Weight 123.377 kg
== END ==
LOC: BARWHC3 09:44
PROVIDERS: ATTEND Surgery Plastic and Reconstructive Surgery
DX: Z53.8 Procedure and treatment not carried out for other reasons (principal)
CPT/HCPCS: 99211

== ENCOUNTER → 2018-07-27 | Outpatient (CLI) | payer MEDICARE, OTHER ==
[2018-07-27 14:48] LABS: Basophils % (A) 1 %; Eosinophils # (A) 0.1 k/uL (0-0.7); Eosinophils % (A) 2 %; HCT 40.7 % (34.0-46.0); HGB 13.4 gm/dL (11.4-16.0); Lymphocytes # (A) 1.8 k/uL (1.0-4.8); Lymphocytes % (A) 40 %; MCH 29.6 pg (25.0-35.0); MCHC 32.9 g/dL (31.0-37.0); MCV 89.8 fL (80.0-100.0); Mean Platelet Volume 8.6; Monocytes # (A) 0.2 k/uL (0-1.0); Monocytes % (A) 5 %; Neutrophils # (A) 2.2 k/uL (1.3-7.7); Neutrophils % (A) 50 %; Platelet Count 244 k/uL (150-450); RBC 4.54 m/uL (3.80-5.40); WBC 4.5 k/uL (3.8-10.6)
[2018-07-27 14:59] LABS: ALT 32 U/L (9-52); AST 31 U/L (14-36); Albumin 3.9 g/dL (3.5-5.0); Alkaline Phosphatase 93 U/L (38-126); Anion Gap 7 mmol/L; Blood Urea Nitrogen 24 mg/dL (7-17); Calcium 9.7 mg/dL (8.4-10.2); Carbon Dioxide 28 mmol/L (22-30); Chloride 101 mmol/L (98-107); Glucose 88 mg/dL (74-99); Potassium 4.5 mmol/L (3.5-5.1); Sodium 136 mmol/L (137-145); Total Bilirubin 0.4 mg/dL (0.2-1.3); Total Protein 6.9 g/dL (6.3-8.2)
== END | disposition home or self-care (01) ==
LOC: LABPAT 13:22
PROVIDERS: ATTEND Surgery Plastic and Reconstructive Surgery
DX: Z01.818 Encounter for other preprocedural examination (principal)
CPT/HCPCS: 36415; 80053; 85025

== ENCOUNTER 2018-08-03 05:29 | Inpatient (IN) | payer MEDICARE, OTHER ==
[~2018-08-03 05:29] MED LIST changes: -CHLORHEXIDINE GLUCONATE 15 ML CUP MUCOUS MEM ONE; -DEXAMETHASONE SOD PHOSPHATE 10 MG/ML 1 ML VIAL IV ONE; -ENOXAPARIN 40 MG/0.4 ML SYRINGE SQ STA; -MIDAZOLAM (PF) 2 MG/2 ML VIAL IV PRN; -PANTOPRAZOLE 40 MG/10 ML VIAL IV STA; -SCOPOLAMINE 1.5MG/72HR PATCH TRANSDERM ONE; +ceFAZolin 3 GM in SODIUM CHLORIDE 0.9% 100 ML IVPB ONE
[2018-08-03] MEDS ORDERED: SCOPOLAMINE 1.5MG/72HR PATCH TRANSDERM ONE (05:40)
[2018-08-03] MEDS ORDERED: ONDANSETRON 4 MG/2 ML VIAL IVP ONE (05:40)
[2018-08-03] MEDS ORDERED: MIDAZOLAM 2 MG/2 ML VIAL IV PRN (05:40)
[2018-08-03] MEDS ORDERED: HYDROmorphone 0.5 MG/0.5 ML SYRINGE IVP PRN (05:40)
[2018-08-03] MEDS ORDERED: DEXAMETHASONE SOD PHOSPHATE 10 MG/ML 1 ML VIAL IV ONE (05:40)
[2018-08-03] MEDS ORDERED: PANTOPRAZOLE 40 MG/10 ML VIAL IV STA (05:56)
[2018-08-03] MEDS ORDERED: ENOXAPARIN 40 MG/0.4 ML SYRINGE SQ STA (05:56)
[2018-08-03] MEDS ORDERED: CHLORHEXIDINE GLUCONATE 15 ML CUP MUCOUS MEM ONE (05:56)
--- NOTE | 2018-08-03 06:03 | P.GSHP ---
History of Present Illness H&P Date: 08/03/18 DATE OF SERVICE: 08/03/2018 CHIEF COMPLAINT: Complications from sleeve gastrectomy. HISTORY OF PRESENT ILLNESS: Chelsey Mar is a 63-year-old female who is status post sleeve gastrectomy, 5 years ago. She reports chronic dysphagia and gastroesophageal reflux disease following her sleeve gastrectomy. She has had multiple dilations with minimal improvement of her symptoms. She also reports chronic epigastric abdominal pain. At her height of 5 feet 4 inches her ideal body weight is 144 pounds. Her highest weight was 365 pounds. Today she comes in 268 pounds. She has maintained a 97 pound weight loss lifetime. Percent excess weight loss is 47 %. Body mass index is reduced from 62.8 down to 46.2. She is 110 pounds overweight. PAST MEDICAL HISTORY: 1. Morbid obesity, BMI 62.8 initial 2. Hypertension. 3. Blood glucose intolerance. 4. Thyroid nodules. 5. Diverticulosis. 6. Osteoarthritis of the lower back. 7. Gastroesophageal reflux disease PAST SURGICAL HISTORY: 1. Laparoscopic cholecystectomy. 2. EGD. 3. Sleeve gastrectomy. 4. Paraesophageal hiatal hernia repair. 5. Oophorectomy including exploratory laparotomy. 6. Colonoscopy. 7. Status post back surgery. 8. Lysis of adhesions MEDICATIONS: 1. Levothyroxine. 2. Vitamin A. 3. Thiamine. 4. Multivitamin. 5. Nasonex spray. 6. Robaxin. 7. Xalatan. 8. Delta. 9. Zyrtec. 10. Calcium with vitamin D. 11. Fiorinal. 12. Biotin. 13. Albuterol inhaler. ALLERGIES: 1. ASPIRIN. 2. PENICILLIN. SOCIAL HISTORY: Nontobacco user. FAMILY HISTORY: Pertinent for super morbid obesity. REVIEW OF SYSTEMS: CONSTITUTIONAL: At her height of 5 feet 4 inches her ideal body weight is 144 pounds. Her highest weight was 365 pounds. Body mass index is reduced from 62.8. MUSCULOSKELETAL: Reports lower back pain. Has diffuse joint pain. GASTROINTESTINAL: Has gastroesophageal reflux disease. Reports trouble swallowi ng. ENDOCRINE: Has history of thyroid disorder and with her thyroid nodules. Prior history of blood sugar glucose intolerance. NEURO: Reports increased neuropathy of the distal lower extremities. CARDIOVASCULAR: Resolution of dyslipidemia. Has hypertension. RESPIRATORY: History obstructive sleep apnea moderately improved. HEENT: No trouble with vision or hearing. PSYCH: No reports of depression or suicidal ideation. HEMATOLOGIC: Denies any abnormal bleeding or bruising. SKIN: No rash or skin cancer. PHYSICAL EXAM: VITAL SIGNS: 5 feet 4 inches; 268 pounds. Body mass index 46.2 ABDOMEN: Soft, nondistended. Nontender. GENERAL: Well developed female in no acute distress. MUSCULOSKELETAL: No clubbing, cyanosis or edema. HEENT: No scleral icterus. Extraocular movements are intact. Head is atraumatic, normocephalic. Hears conversational speech. NECK: Nontender. No lymphadenopathy. CHEST: Nonlabored respirations. Equal bilateral excursions. CARDIOVASCULAR: Regular rate. Regular rhythm. 2+ radial pulses NEURO: No focal or lateralizing signs. Cranial nerves II to XII grossly intact. PSYCH: Appropriate affect. Alert and oriented to person, place and time. SKIN: Well perfused. Good skin turgor. ASSESSMENT: 1. Morbid obesity due to excess calories. 2. Body mass index reduced from 61.2, initial 3. Status post sleeve gastrectomy. 4. Dysphagia. 5. Osteoarthritis of the lower back status post surgery. 6. Thyroid goiter. 7. Panniculitis. 8. Hypertensive heart disease. 9. History of asthma. 10. Bilateral lower extremity neuropathy 11. Adequate protein intake. 12. Thiamine deficiency. 13. Vitamin D deficiency. 14. Hypothyroidism. 15. Secondary hyperparathyroidism. 16. Complications from sleeve gastrectomy. PLAN: 1. Recommend revision of sleeve gastrectomy to gastric bypass to correct underlying gastroesophageal reflux disease. Benefits and risks including but not limited to bleeding, infection, leaks, gastrojejunal stricture and ulcers, inadequate weight loss, nutritional deficiencies were reviewed in detail. She is intermediate to high risk of surgical complications as a revisional procedure 2. Robotic assisted approach reviewed. 3. An 8 page second-generation bariatric consent form was reviewed in detail including potential of bleeding, infection, leaks, adequate weight loss, nutritional deficiencies which the patient demonstrated understanding of the risks. 4. A 2 week high-protein low caloric 800 kcal diet described to address hepatomegaly. 5. Preoperative labs including complete metabolic panel and CBC with type and screen recommended. 6. DVT prophylaxis per [place] [facility]. 7. Antibiotic prophylaxis. 8. Inpatient hospitalization anticipated for more than 2 nights. 9. All questions and concerns were addressed with the patient. Past Medical History Past Medical History: CVA/TIA, Deep Vein Thrombosis (DVT), Eye Disorder, GERD/Reflux, Osteoarthritis (OA), Thyroid Disorder Additional Past Medical History / Comment(s): Bilateral carpal tunnel, nerve damage, migraines, HIATAL hernia, HX TIA X2, GLAUCOMA, DVT in 70's w/taking control. 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 History of Any Multi-Drug Resistant Organisms: None Reported Past Surgical History: Bariatric Surgery, Section, Cholecystectomy, Hernia Repair, Hysterectomy, Orthopedic Surgery Additional Past Surgical History / Comment(s): Temporal biopsy, EGD, CARPAL TUNNEL X4, LEFT LEG SURGERY, gastric sleeve 01/31/2014. Past Anesthesia/Blood Transfusion Reactions: No Reported Reaction Additional Past Anesthesia/Blood Transfusion Reaction / Comment(s): STATES "SPINAL WENT TOO HIGH" with labor. Never had blood transfusion and does not want any. Past Psychological History: No Psychological Hx Reported Smoking Status: Former smoker Past Alcohol Use History: None Reported Additional Past Alcohol Use History / Comment(s): Quit smoking in 1993, smoked 2ppd. Past Drug Use History: None Reported - Past Family History Mother Family Medical History: Hypertension Sister(s) Family Medical History: Cancer Additional Family Medical History / Comment(s): COLON Brother(s) Family Medical History: Cancer Additional Family Medical History / Comment(s): Prostate CA Medications and Allergies Home Medications Medication Instructions Recorded Confirmed Type Latanoprost Ophth [Xalatan 0.005%] 1 drops BOTH EYES HS 11/26/13 07/22/18 History Albuterol Sulfate [Proair Hfa] 2 puff INHALATION RT-Q4H PRN 01/25/14 07/22/18 History Butalbital/Aspirin/Caffeine 1 tab PO Q4H PRN 01/25/14 07/22/18 History [Fiorinal 50-325-40 MG] Biotin 5 mg PO DAILY 03/09/14 07/22/18 History Calcium Carbonate/Vitamin D3 1 tab PO DAILY 03/09/14 07/22/18 History [Calcium 500-Vit D3 400 Tablet] Multivitamins, Thera [Multivitamin 1 tab PO DAILY 03/09/14 07/22/18 History (formulary)] HYDROcodone/APAP 7.5-325MG [Delta 1 tab PO QID 03/16/15 07/22/18 History 7.5-325] Omeprazole 40 mg PO DAILY #14 capsule. 06/11/17 07/22/18 Rx Cyclobenzaprine [Flexeril] 10 mg PO HS 02/02/18 07/22/18 History Methimazole [Tapazole] 5 mg PO DAILY 02/02/18 07/22/18 History Niacin [Niaspan] 500 mg PO DAILY 02/02/18 07/22/18 History Desipramine HCl [Norpramin] 50 mg PO HS 05/18/18 07/22/18 History Allergies Allergy/AdvReac Type Severity Reaction Status Date / Time aspirin Allergy Abdominal Verified 07/22/18 12:10 Pain Penicillins Allergy Itching Verified 07/22/18 12:10 environmental Allergy nose Uncoded 07/22/18 12:10 drainage, watery eyes, sneeze
[2018-08-03] MEDS: LACTATED RINGERS 1,000 ML IV SCH (06:21)
[2018-08-03] MEDS ORDERED: HYDROmorphone (PF) 1 MG/ML ONE (07:30)
[2018-08-03] MEDS ORDERED: BUPIVACAINE-EPI 0.5%-1:200,000 10 ML VIAL SQ ONE (07:30)
[2018-08-03] MEDS ORDERED: ROCURONIUM BROMIDE 10 MG/ML 10 ML VIAL IV ONE (07:30)
[2018-08-03] MEDS ORDERED: NEOSTIGMINE 1 MG/ML 10 ML VIAL ONE (07:30)
[2018-08-03] MEDS ORDERED: LIDOCAINE 1% INJ 10MG/ML (20 ML MDV) ONE (07:30)
[2018-08-03] MEDS ORDERED: MIDAZOLAM 2 MG/2 ML VIAL ONE (07:30)
[2018-08-03] MEDS ORDERED: GLYCOPYRROLATE 0.2 MG/ML 2 ML VIAL ONE (07:30)
[2018-08-03] MEDS ORDERED: PROPOFOL 10 MG/ML 20 ML VIAL IV ONE (07:30)
[2018-08-03] MEDS ORDERED: fentaNYL (PF) 50 MCG/ML 2 ML AMP ONE (07:30)
[2018-08-03] MEDS ORDERED: LACTATED RINGERS 1,000 ML IV ONE ×2 (08:29→10:50)
[2018-08-03] MEDS ORDERED: HYOSCYAMINE ORAL DROPS 1.875 MG/15 ML BOTTLE PO PRN (12:21)
[2018-08-03] MEDS ORDERED: diphenhydrAMINE 50 MG/ML 1 ML VIAL IVP PRN (12:21)
[2018-08-03] MEDS ORDERED: HYDROcodone/APAP 15 ML SOLUTION PO PRN (12:21)
[2018-08-03] MEDS ORDERED: NALOXONE 0.4 MG/ML 1 ML VIAL IV PRN (12:21)
--- NOTE | 2018-08-03 12:21 | P.OP ---
Date of Procedure: 08/03/18 Description of Procedure: SURGEON: JENNIFER SANDOVAL MD PREOPERATIVE DIAGNOSES: 1. Morbid obesity due to excess calories. 2. Body mass index reduced from 61.2, initial to 44.0 3. Status post sleeve gastrectomy. 4. Dysphagia. 5. Osteoarthritis of the lower back status post surgery. 6. Thyroid goiter. 7. Panniculitis. 8. Hypertensive heart disease. 9. History of asthma. 10. Bilateral lower extremity neuropathy 11. Adequate protein intake. 12. Thiamine deficiency. 13. Vitamin D deficiency. 14. Hypothyroidism. 15. Secondary hyperparathyroidism. 16. Complications from sleeve gastrectomy. 17. Gastroesophageal reflux disease. POSTOPERATIVE DIAGNOSES: PREOPERATIVE DIAGNOSES: 1. Morbid obesity due to excess calories. 2. Body mass index reduced from 61.2, initial to 44.0 3. Status post sleeve gastrectomy. 4. Dysphagia. 5. Osteoarthritis of the lower back status post surgery. 6. Thyroid goiter. 7. Panniculitis. 8. Hypertensive heart disease. 9. History of asthma. 10. Bilateral lower extremity neuropathy 11. Adequate protein intake. 12. Thiamine deficiency. 13. Vitamin D deficiency. 14. Hypothyroidism. 15. Secondary hyperparathyroidism. 16. Complications from sleeve gastrectomy. 17. Gastroesophageal reflux disease. 18. Severe perigastric peritoneal adhesions omentum to abdominal wall OPERATION: 1. Robotic assisted da Duke Xi laparoscopic lysis of adhesions over 1.5 hours 2. Robotic assisted da Duke Xi laparoscopic Michael-en-Y gastric bypass, 100 cm antecolic antegastric Michael limb, with 25 mm EEA. 3. Intraoperative esophagogastrojejunoscopy. ANESTHESIA: GETA and local ESTIMATED BLOOD LOSS: 50 mL SPECIMENS REMOVED: None. COMPLICATIONS: NONE. INDICATIONS: Chelsey Mar is a 63-year-old female who is status post sleeve gastrectomy, 5 years ago. She reports chronic dysphagia and gastroesophageal reflux disease following her sleeve gastrectomy. She has had multiple dilations with minimal improvement of her symptoms. She also reports chronic epigastric abdominal pain. She presents with complications following her sleeve ga strectomy. At her height of 5 feet 4 inches her ideal body weight is 144 pounds. Her highest weight was 365 pounds. Today she comes in 260 pounds. She has maintained a 105 pound weight loss lifetime. Percent excess weight loss is 48 %. Body mass index is reduced from 62.8 down to 44.0. She is 116 pounds overweight. A second-generation bariatric consent form was described in detail including the possibility of protein malnutrition, leaks, gastrojejunal stricture, venous thrombosis, need for further surgery for which she demonstrated understanding. Benefits and risks of the procedure were described at length. Informed consent was obtained. DESCRIPTION: The patient was brought into the operating room theater. She was placed supine. She had received Lovenox subcutaneously for DVT prophylaxis. Additionally she Peridex oral solution as an oral decontaminant was placed per anesthesia. After general induction, the abdomen was prepped and draped in standard sterile fashion. Ioban draping was placed along the abdomen. A robotic Jimdoi Xi system was prepped and primed. The xiphoid to umbilicus was measured of 16 cm. Incisions were proposed at 15 cm from the xiphoid. Proposed port sites were marked with indelible marker along the anterior axillary line bilaterally, mid clavicular line bilaterally with each port marked 10 cm from each other. The robotic stapler port was marked for the right midclavicular line including along the left midclavicular line. A 5 mm 0 degrees laparoscopic trocar entry was performed along the left upper quadrant. The abdomen was insufflated to 15 mmHg pressure, which she tolerated well. Diagnostic laparoscopy demonstrated no injury to bowel, viscera, or mesentery. Severe perigastric and epigastric adhesions from omentum to abdominal wall was found. An 8 mm camera port was placed left lateral to the umbilicus at the epigastrium, 15 cm distal to the xiphoid. Next, 12-mm robot stapler port was placed along the right mid abdomen. An 12 mm port was exchanged along the left upper quadrant. An 8 mm port was placed on the left lateral abdominal wall under direct visualization. Please note that the ports were placed 18 to 20 cm away from the target anatomy of the stomach. Care was taken to check that each robotic arm was safely away from collision with the bed or the patient. At the epigastrium, a medium sized Ernie liver retractor was placed under direct visualization with the Iron Senior Bi Developer placed under the right shoulder of the patient. The patient was repositioned in reverse Trendelenburg position at 14-degrees after lowering the bed. The robot was docked over the patient. Using grasper for arm 3, a grasper for arm 1, including vessel sealer for arm 4, the robotic system was docked and primed as described. Instruments were interchanged by the porcelain buildup assistant including endoscissors, the needle interstate bus driver, and stapler. I had sat at the console. Attention was brought to the perigastric and epigastric adhesions and addressed using vessel sealer for over 1.5 hrs as the sleeve was adhered to the liver bed and abdominal wall. Careful dissection of the sleeve gastrectomy was performed without gastrotomy. Next, the transverse mesocolon was reflected into the upper abdomen after dividing the mesentery and preparing for the jejunojejunostomy portion of the case. The ligament of Treitz was identified and measured 60 cm antegrade and marked using 3-0 Silk. The jejunum was divided at the 60 cm point using 45-mm white loads above the suture measurement. The biliopancreatic limb was held in place. The Michael limb was measured 100 cm in an antegrade fashion to avoid tension along the proposed gastrojejunal anastomosis. At 100 cm along the anti-mesenteric border of the Michael limb, a jejunojejunostomy was proposed whereby enterotomies were created along the biliopancreatic limb including the Michael limb using a Bovie cautery. A stay suture of 3-0 Slik was placed to align and create the anastomosis. The enterotomies along the anti-mesenteric borders were created followed by unidirectional fire from the patient's right side using 60 mm white load Smart technology robotic stapler. The jejunojejunostomy was found to be hemostatic. The enterotomy was closed after horizontal mattress stitch of 3-0 silk used to elevate the enterotomy followed by closure with the robotic stapler blue load. The jejunal limb was temporarily tacked along the left upper quadrant. Attention was now brought to the creation of the gastrojejunostomy. Along the lesser curvature of the stomach between the second and third veins, d issection was made along the retrogastric space to allow first firing of the robotic staple. Blue loads of 60 mm staplers were used to divide the stomach to create the gastric pouch. The patient was then prepared for placement of a Orvil. A 25-mm Orvil was selected for placement by the nurse electric shipyard operator. The Orvil tubing was placed anterior to the staple line of the gastric pouch and brought out through the left inferior lateral port. I re-scrubbed into the case. The robotic arms were temporarily undocked. The Orvil was then carefully and successfully navigated with the help of the [facility] electric shipyard operator into the gastric pouch anterior to the staple line. The sutures were identified and divided. The tubing was from the 25 mm anvil. As the Orvil had been placed, the blind jejunal limb was brought proximally into the upper abdomen. No torsion was found upon the Michael limb. No tension was identified as the limb was brought along the upper abdomen. The blind jejunal limb was previously opened using endo-scissors with cautery. The 25-mm EEA stapler was brought through the left anterior lateral port site from the left side. The EEA stapler was brought through the open jejunal limb and its needle was deployed at the antimesenteric border where the anvil were mated for approximately 1 minute upon firing. The stapler was removed after irrigating the shaft of the instrument with warm normal saline. Donuts were found to be intact and on both sides. The da Duke Xi robot arms were then re-docked. I sat at the console. The open jejunal limb defect was closed using 60 mm white loads after releasing any tension from the blind jejunal limb. Care was taken to avoid any long blind limb to avoid candycane syndrome. No reinforcement sutures were placed. The Rose and jejunojejunostomy mesenteric defects were obliterated by her intra-abdominal fat. I then went to the head of the bed to perform the esophagogastrojejunoscopy and a leak test. An Olympus gastroscope was passed along the posterior oropharynx which was unremarkable for any injury to the vocal cords. The scope was passed down to the proximal portion of the pouch, whereby no active bleeding was encountered. Excellent visualization of the gastrojejunostomy anastomosis, including the Michael limb was encountered with endoscopic image obtained. The anastomosis was found to be patent. The gastrointestinal tract was desufflated. No evidence of intraoperative leak was encountered as the gastric pouch and anastomosis were submerged under normal saline solution. The robot was then undocked. I then went back to the bedside of the patient, whereby with coordinated effort of the porcelain buildup assistant, irrigation was aspirated from the upper abdominal cavity. Tisseel was placed circumferentially over the anastomosis of the gastrojejunostomy. The fascial defect of the EEA stapler was closed using Daryl Pedraza and 0 Vicryl. All instruments and pneumoperitoneum were evacuated from the abdominal cavity. The port correlating with the EEA stapler device was cleansed with normal saline solution and hydrogen peroxide. The rest of incisions were reapproximated using 4-0 Monocryl in an interrupted subcuticular fashion. Local anesthetic was infiltrated along the skin for postop analgesia. Liquid glue was applied to the skin. OptiFoam dressing was placed along the EEA stapler site. At the end of the procedure, needle, sponge and instrument count had been verified correct by the surgical garment assembly supervisor. He had tolerated the procedure well and was extubated and taken to the postanesthesia unit in stable condition. Intraoperative findings were described to the patient's family who were very pleased with the level of care. Operative Findings: 1. Biliopancreatic limb 60 cm 2. Bypass performed using 100 cm michael limb secondary to avoid increased tension at 150 cm. 3. Bradley defect and jejunojejunostomy defect obliterated by moderate intra- abdominal fat. 4. Leak test negative with gastrojejunal anastomosis patent and hemostatic. 5. No reinforcement sutures were placed along the gastrojejunal anastomosis 6. Severe perigastric and perihepatic adhesions adding over 1.5 hours to the case 7. Severe epigastric adhesions
[2018-08-03 15:23] VITALS: BMI 43.9
[2018-08-03] MEDS: ALBUTEROL NEBULIZED 2.5 MG/3 ML INHALATION SCH ×2 (15:30→19:20)
[2018-08-03] MEDS: 0.9% NACL WITH KCL 20 MEQ/L 1,000 ML IV SCH ×2 (15:38→23:37)
[2018-08-03] MEDS ORDERED: ACETAMINOPHEN IV (For NPO) 1,000 MG in EMPTY BAG 1 BAG IVPB ONE (16:00)
[2018-08-03] MEDS: ceFAZolin 3 GM in SODIUM CHLORIDE 0.9% 100 ML IVPB SCH ×2 (16:33→23:36)
[2018-08-03] MEDS: ONDANSETRON 4 MG/2 ML VIAL IVP PRN ×2 (16:52→21:02)
[2018-08-03] MEDS: SIMETHICONE 40 MG/0.6 ML DROPS 2,000 MG/30 ML BOTTLE PO SCH ×2 (16:52→23:37)
[2018-08-03] MEDS ORDERED: METOCLOPRAMIDE 5 MG/ML 2 ML VIAL IVP PRN (18:22)
--- NOTE | 2018-08-03 18:39 | P.PN ---
Progress Note - Text Progress Note Date: 08/03/18 She is nauseated. Pain is controlled.
[2018-08-03] MEDS: LATANOPROST 0.005% OPHTH DROPS 2.5 ML BTL BOTH EYES SCH (21:02)
[2018-08-04] MEDS: LACTATED RINGERS 1,000 ML IV SCH (04:26)
[2018-08-04] MEDS: 0.9% NACL WITH KCL 20 MEQ/L 1,000 ML IV SCH ×3 (05:14→22:43)
[2018-08-04] MEDS: SIMETHICONE 40 MG/0.6 ML DROPS 2,000 MG/30 ML BOTTLE PO SCH ×4 (05:14→22:43)
[2018-08-04] MEDS: ALBUTEROL NEBULIZED 2.5 MG/3 ML INHALATION SCH ×4 (07:58→20:02)
[2018-08-04] MEDS: SODIUM FERRIC GLUCONAT-SUCROSE 125 MG in SODIUM CHLORIDE 0.9% 100 ML IVPB SCH (08:39)
[2018-08-04] MEDS: PANTOPRAZOLE 40 MG/10 ML VIAL IV SCH (08:40)
[2018-08-04] MEDS: ENOXAPARIN 40 MG/0.4 ML SYRINGE SQ SCH (08:40)
[2018-08-04] MEDS: HYDROmorphone 1 MG/ML 1 ML SYRINGE IVP PRN ×2 (08:57→22:42)
[2018-08-04 11:24] LABS: Anion Gap 9 mmol/L; Blood Urea Nitrogen 10 mg/dL (7-17); Calcium 9.3 mg/dL (8.4-10.2); Carbon Dioxide 22 mmol/L (22-30); Chloride 103 mmol/L (98-107); Phosphorus 2.3 mg/dL (2.5-4.5); Potassium 4.6 mmol/L (3.5-5.1); Sodium 134 mmol/L (137-145)
[2018-08-04 11:40] LABS: Basophils % (A) 0 %; Eosinophils % (A) 0 %; HGB 13.2 gm/dL (11.4-16.0); Lymphocytes # (A) 1.3 k/uL (1.0-4.8); Lymphocytes % (A) 10 %; MCH 29.4 pg (25.0-35.0); Mean Platelet Volume 10.5; Monocytes # (A) 0.6 k/uL (0-1.0); Monocytes % (A) 4 %; Neutrophils # (A) 11.5 k/uL (1.3-7.7); Neutrophils % (A) 85 %; Platelet Count 225 k/uL (150-450); RBC 4.49 m/uL (3.80-5.40); RDW 13.6 % (11.5-15.5); WBC 13.6 k/uL (3.8-10.6)
[2018-08-04] MEDS ORDERED: Phosphorus Replacement Protoco 1 EACH MISC MISCELLANE PRN (11:46)
[2018-08-04] MEDS ORDERED: SODIUM PHOSPHATE 10 MMOL in SODIUM CHLORIDE 0.9% 250 ML IVPB ONE (12:00)
--- NOTE | 2018-08-04 12:41 | P.PN ---
Subjective Progress Note Date: 08/04/18 CHIEF COMPLAINT: Obesity HISTORY OF PRESENT ILLNESS: 63-year-old female who underwent revision from sleeve gastrectomy to gastric bypass and lysis of adhesions. POD #1. Patient states her pain is tolerable. Denies nausea or vomiting. Tolerating liquids. Patient reports voiding multiple times during the night. She has been evalu ating in the hallway. Using incentive spirometer. PHYSICAL EXAM: VITAL SIGNS: Reviewed. GENERAL: Well-developed in no acute distress. HEENT: No sclera icterus. Extraocular movements grossly intact. Moist buccal mucosa. Head is atraumatic, normocephalic. ABDOMEN: Soft. Nondistended. Nontender. Dressing clean dry and intact. Abdominal binder present. NEUROLOGIC: Alert and oriented. Cranial nerves II through XII grossly intact. ASSESSMENT: 1. Status post revision of sleeve gastrectomy to gastric bypass and lysis of adhesions PLAN: 1. Strict I and O's 2. Pain control 3. continue liquid diet 4. activity as tolerated 5. continue iron infusions 6. replace phosphorus Nurse practitioner note has been reviewed by physician. Signing provider agrees with the documented findings, assessment, and plan of care. Objective - Vital Signs Vital signs: Vital Signs Temp 98.7 F 08/04/18 07:00 Pulse 80 08/04/18 11:23 Resp 12 08/04/18 07:00 BP 165/75 08/04/18 07:00 Pulse Ox 97 08/04/18 11:16 Intake & Output 08/03/18 08/04/18 08/04/18 18:59 06:59 18:59 Intake Total 3100 2100 210 Output Total 470 Balance 2630 2100 210 Weight 117.979 kg Intake: IV 3100 Intake, IV Titration 2100 Amount 0.9% NaCl with KCl 20 Meq 2100 /l 1,000 ml @ 150 mls/hr IV .[id number] [facility] Rx#: [id number] Oral 210 Output: Urine 420 Estimated Blood Loss 50 Other: Voiding Method Toilet Toilet # Voids 2 - Labs CBC & Chem 7: 08/04/18 09:05 08/04/18 09:05 Labs: Abnormal Lab Results - Last 24 Hours (Table) 08/04/18 08/04/18 Range/Units 09:05 09:05 WBC 13.6 H (3.8-10.6) k/uL Neutrophils # 11.5 H (1.3-7.7) k/uL Sodium 134 L (137-145) mmol/L Phosphorus 2.3 L (2.5-4.5) mg/dL Assessment and Plan (1) Morbid obesity Current Visit: Yes Status: Acute Code(s): E66.01 - MORBID (SEVERE) OBESITY DUE TO EXCESS CALORIES SNOMED Code(s): 419174300 (2) Abdominal adhesions Current Visit: No Status: Acute Code(s): K66.0 - PERITONEAL ADHESIONS (POSTPROCEDURAL) (POSTINFECTION) SNOMED Code(s): 900752848 (3) History of sleeve gastrectomy Current Visit: No Status: Chronic Code(s): Z98.89 - OTHER SPECIFIED POSTPROCEDURAL STATES * DO NOT USE * SNOMED Code(s): 318908009
[2018-08-04] MEDS: LATANOPROST 0.005% OPHTH DROPS 2.5 ML BTL BOTH EYES SCH (20:47)
[2018-08-05] MEDS: LACTATED RINGERS 1,000 ML IV SCH (01:59)
[2018-08-05 03:41] VITALS: RESP 16
[2018-08-05] MEDS: SIMETHICONE 40 MG/0.6 ML DROPS 2,000 MG/30 ML BOTTLE PO SCH ×2 (06:31→12:29)
[2018-08-05] MEDS ORDERED: BISACODYL 5 MG TABLET.DR PO PRN (08:00)
[2018-08-05] MEDS: ALBUTEROL NEBULIZED 2.5 MG/3 ML INHALATION SCH ×2 (08:10→11:30)
[2018-08-05] MEDS: ENOXAPARIN 40 MG/0.4 ML SYRINGE SQ SCH (08:17)
[2018-08-05] MEDS: PANTOPRAZOLE 40 MG/10 ML VIAL IV SCH (08:17)
[2018-08-05] MEDS: HYDROmorphone 1 MG/ML 1 ML SYRINGE IVP PRN (08:22)
[2018-08-05] MEDS: 0.9% NACL WITH KCL 20 MEQ/L 1,000 ML IV SCH (08:25)
[2018-08-05 08:26] LABS: Anion Gap 7 mmol/L; Blood Urea Nitrogen 6 mg/dL (7-17); Calcium 8.8 mg/dL (8.4-10.2); Carbon Dioxide 23 mmol/L (22-30); Chloride 104 mmol/L (98-107); Glucose 82 mg/dL (74-99); Sodium 134 mmol/L (137-145)
--- NOTE | 2018-08-05 08:30 | P.PN ---
Progress Note - Text Progress Note Date: 08/04/18 Patient seen and evaluated. Nausea resolved. No reports of abdominal pain. She is tolerating liquids. She reports overall fatigue. Anticipated discharge tomorrow. Patient overall high risk procedure with close outpatient follow-up. Pain control including narcotics described as patient currently has narcotics prescribed by primary care provider. She has new pain prescription refill at home.
[2018-08-05 08:31] LABS: Potassium 5.2 mmol/L (3.5-5.1)
[2018-08-05 08:40] VITALS: BP 156/80; PULSE 79; TEMP 98.1
[2018-08-05 09:04] LABS: Basophils # (A) 0.1 k/uL (0-0.2); Basophils % (A) 1 %; Eosinophils # (A) 0.1 k/uL (0-0.7); Eosinophils % (A) 1 %; HCT 37.5 % (34.0-46.0); HGB 12.8 gm/dL (11.4-16.0); Lymphocytes # (A) 1.1 k/uL (1.0-4.8); Lymphocytes % (A) 12 %; MCH 30.7 pg (25.0-35.0); MCHC 34.1 g/dL (31.0-37.0); MCV 90.3 fL (80.0-100.0); Mean Platelet Volume 11.2; Monocytes # (A) 0.4 k/uL (0-1.0); Monocytes % (A) 5 %; Neutrophils # (A) 7.9 k/uL (1.3-7.7); Neutrophils % (A) 81 %; Platelet Count 117 k/uL (150-450); RBC 4.16 m/uL (3.80-5.40); RDW 14.5 % (11.5-15.5); WBC 9.8 k/uL (3.8-10.6)
[2018-08-05] MEDS ORDERED: SODIUM CHLORIDE 0.9% 1,000 ML IV SCH (09:15)
--- NOTE | 2018-08-05 12:04 | P.DS ---
Providers Date of admission: 08/03/18 05:29 Expected date of discharge: 08/05/18 Attending physician: Marta Sullivan Primary care physician: Shaheen Lora - Discharge Diagnosis(es) (1) Morbid obesity due to excess calories Status: Acute (2) Adult BMI 40.0-44.9 kg/sq m Status: Acute (3) Iron (Fe) deficiency anemia Status: Acute (4) Hypomagnesemia Status: Acute (5) Gastroesophageal reflux disease Status: Acute (6) Peritoneal adhesions Status: Acute (7) Status post gastric bypass for obesity Status: Acute (8) History of hypertension Status: Chronic (9) History of sleeve gastrectomy Status: Chronic Hospital Course: POSTOPERATIVE DIAGNOSES: 1. Morbid obesity due to excess calories. 2. Body mass index reduced from 61.2, initial to 44.0 3. Status post sleeve gastrectomy. 4. Dysphagia. 5. Osteoarthritis of the lower back status post surgery. 6. Thyroid goiter. 7. Panniculitis. 8. Hypertensive heart disease. 9. History of asthma. 10. Bilateral lower extremity neuropathy 11. Adequate protein intake. 12. Thiamine deficiency. 13. Vitamin D deficiency. 14. Hypothyroidism. 15. Secondary hyperparathyroidism. 16. Complications from sleeve gastrectomy. 17. Gastroesophageal reflux disease. 18. Severe perigastric peritoneal adhesions omentum to abdominal wall 19. Iron deficiency anemia 20. [facility] COURSW: Chelsey Mar is a 63-year-old female who is status post sleeve gastrectomy, 5 years ago. She reports chronic dysphagia and gastroesophageal reflux disease following her sleeve gastrectomy. She has had multiple dilations with minimal improvement of her symptoms. She also reports chronic epigastric abdominal pain. She presents with complications following her sleeve gastrectomy. At her height of 5 feet 4 inches her ideal body weight is 144 pounds. Her highest weight was 365 pounds. Today she comes in 260 pounds. She has maintained a 105 pound weight loss lifetime. Percent excess weight loss is 48 %. Body mass index is reduced from 62.8 down to 44.0. She is 116 pounds overweight. Post procedure she was nauseated secondary to low magnesium level that was replaced. She was tolerating liquids. For history of iron deficiency anemia, she was started on iron infusions. Post bariatric discharge orders were reviewed. Prior to discharge she was doing well Procedures: OPERATION: 1. Robotic assisted da [facility] laparoscopic lysis of adhesions over 1.5 hours 2. Robotic assisted da [facility] laparoscopic Stevie-en-Y gastric bypass, 100 cm antecolic antegastric Stevie limb, with 25 mm EEA. 3. Intraoperative esophagogastrojejunoscopy. ANESTHESIA: GETA and local ESTIMATED BLOOD LOSS: 50 mL SPECIMENS REMOVED: None. COMPLICATIONS: NONE. Patient Condition at Discharge: Stable Plan - Discharge Summary Discharge Rx Participant: Yes New Discharge Prescriptions: New Bisacodyl [Dulcolax] 5 mg PO DAILY PRN #10 tablet.dr PRN Reason: Constipation Simethicone 40 mg/0.6 ml Drops [Mylicon Drops] 40 mg PO PCHS PRN #30 ml PRN Reason: Gas Ondansetron Odt [Zofran Odt] 4 mg PO Q8HR PRN #9 tab PRN Reason: Nausea RX: Omeprazole 40 mg PO DAILY #30 capsule. HYDROcodone/APAP 7.5-325MG [[place] 7.5-325] 1 tab PO Q4H PRN 3 Days #18 tab PRN Reason: Pain Continue RX: Latanoprost Ophth [Xalatan 0.005%] 1 drops BOTH EYES HS RX: Albuterol Sulfate [Proair Hfa] 2 puff INHALATION RT-Q4H PRN PRN Reason: asthma RX: Butalbital/Aspirin/Caffeine [Fiorinal 50-325-40 MG] 1 tab PO Q4H PRN PRN Reason: Migraine Headache RX: Omeprazole 40 mg PO DAILY #14 capsule. RX: Methimazole [Tapazole] 5 mg PO DAILY RX: Cyclobenzaprine [Flexeril] 10 mg PO HS RX: Desipramine HCl [Norpramin] 50 mg PO HS Discontinued RX: Multivitamins, Thera [Multivitamin (formulary)] 1 tab PO DAILY RX: Calcium Carbonate/Vitamin D3 [Calcium 500-Vit D3 400 Tablet] 1 tab PO DAILY RX: Biotin 5 mg PO DAILY RX: HYDROcodone/APAP 7.5-325MG [[place] 7.5-325] 1 tab PO QID Niacin [Niaspan] 500 mg PO DAILY Discharge Medication List RX: Latanoprost Ophth [Xalatan 0.005%] 1 drops BOTH EYES HS 11/26/13 [History] RX: Albuterol Sulfate [Proair Hfa] 2 puff INHALATION RT-Q4H PRN 01/25/14 [History] RX: Butalbital/Aspirin/Caffeine [Fiorinal 50-325-40 MG] 1 tab PO Q4H PRN 01/25/14 [History] RX: Omeprazole 40 mg PO DAILY #14 capsule. 06/11/17 [Rx] RX: Cyclobenzaprine [Flexeril] 10 mg PO HS 02/02/18 [History] RX: Methimazole [Tapazole] 5 mg PO DAILY 02/02/18 [History] RX: Desipramine HCl [Norpramin] 50 mg PO HS 05/18/18 [History] Bisacodyl [Dulcolax] 5 mg PO DAILY PRN #10 tablet. 08/05/18 [Rx] HYDROcodone/APAP 7.5-325MG [[place] 7.5-325] 1 tab PO Q4H PRN 3 Days #18 tab 08/05/18 [Rx] Ondansetron Odt [Zofran Odt] 4 mg PO Q8HR PRN #9 tab 08/05/18 [Rx] RX: Omeprazole 40 mg PO DAILY #30 capsule. 08/05/18 [Rx] Simethicone 40 mg/0.6 ml Drops [Mylicon Drops] 40 mg PO PCHS PRN #30 ml 08/05/18 [Rx] Follow up Appointment(s)/Referral(s): [facility],. [NON-STAFF] - 08/07/18 10:00 am Patient Instructions/Handouts: Abdominal Binder (DC), Nutrition after Bariatric Surgery (DC), Stevie-en-Y Gastric Bypass (DC) Activity/Diet/Wound Care/Special Instructions: Please start stage II bariatric diet. No lifting over 4 pounds in 4 weeks. May shower tomorrow. No soaking in bath tubs. Please notify your surgeon if you develop nausea and vomiting including new onset of abdominal pain. Do not take any blood sugar medications if your blood sugar is less than 150. Please ambulate at all times. Continue to use her incentive spirometry to prevent pneumonias. Please continue to ambulate at home to prevent blood clots in her legs. You have new prescriptions. Discharge Disposition: HOME SELF-CARE
[2018-08-05] MEDS: SODIUM FERRIC GLUCONAT-SUCROSE 125 MG in SODIUM CHLORIDE 0.9% 100 ML IVPB SCH (12:29)
== END 2018-08-05 14:55 | disposition home or self-care (01) | DRG 327 ==
LOC: 2ORMAIN 05:29 → 4SSUR 14:54
PROVIDERS: ADMIT Surgery Plastic and Reconstructive Surgery; ATTEND Surgery Plastic and Reconstructive Surgery
PROC: 0DNW4ZZ Release Peritoneum, Percutaneous Endoscopic Approach (ICD-10-PCS; 2018-08-03)
PROC: 0DJ08ZZ Inspection of Upper Intestinal Tract, Via Natural or Artificial Opening Endoscopic (ICD-10-PCS; 2018-08-03)
PROC: 0D164ZA Bypass Stomach to Jejunum, Percutaneous Endoscopic Approach (ICD-10-PCS; principal; 2018-08-03 07:30)
DX: K95.89 Other complications of other bariatric procedure (principal); E51.9 Thiamine deficiency, unspecified; N25.81 Secondary hyperparathyroidism of renal origin; Z68.41 Body mass index [BMI] 40.0-44.9, adult; R13.10 Dysphagia, unspecified; E66.01 Morbid (severe) obesity due to excess calories; I11.9 Hypertensive heart disease without heart failure; E03.9 Hypothyroidism, unspecified; E55.9 Vitamin D deficiency, unspecified; G57.93 Unspecified mononeuropathy of bilateral lower limbs; G89.29 Other chronic pain; H40.9 Unspecified glaucoma; J45.909 Unspecified asthma, uncomplicated; K21.9 Gastro-esophageal reflux disease without esophagitis; K66.0 Peritoneal adhesions (postprocedural) (postinfection); M79.3 Panniculitis, unspecified; E04.2 Nontoxic multinodular goiter; G43.909 Migraine, unspecified, not intractable, without status migrainosus; K57.90 Diverticulosis of intestine, part unspecified, without perforation or abscess without bleeding; R10.13 Epigastric pain; Z79.899 Other long term (current) drug therapy; Z79.890 Hormone replacement therapy; Z88.6 Allergy status to analgesic agent; Z88.0 Allergy status to penicillin; Z90.710 Acquired absence of both cervix and uterus; Z90.721 Acquired absence of ovaries, unilateral; Z86.73 Personal history of transient ischemic attack (TIA), and cerebral infarction without residual deficits; Z87.891 Personal history of nicotine dependence; Z86.718 Personal history of other venous thrombosis and embolism; Z90.49 Acquired absence of other specified parts of digestive tract; Z82.49 Family history of ischemic heart disease and other diseases of the circulatory system; Y83.6 Removal of other organ (partial) (total) as the cause of abnormal reaction of the patient, or of later complication, without mention of misadventure at the time of the procedure
CPT/HCPCS: 80048; 80051; 82310; 82565; 83735; 84100; 84132; 84520; 85025; 86850; 86900; 86901; 94640; 94760; 94762

== ENCOUNTER → 2018-08-07 | Outpatient (CLI) | payer MEDICARE, OTHER ==
--- NOTE | 2018-08-07 10:59 | P.PN ---
Subjective Progress Note Date: 08/07/18 Patient is postoperative day 4 revision from sleep to gastric bypass. She is doing well. She had a bowel movement. No fevers or chills. No blood in stools. She is tolerating protein shakes. Pain is well controlled. No nausea and vomiting. Follow-up in 1 month postop otherwise nurse visit next week. Dressing discontinued without cellulitis. Abdominal binder present.
[2018-08-07 11:11] VITALS: BP 126/81; PULSE 97; RESP 16; TEMP 97; BMI 45.6
== END ==
LOC: BARWHC3 09:45
PROVIDERS: ATTEND Surgery Plastic and Reconstructive Surgery
DX: Z48.815 Encounter for surgical aftercare following surgery on the digestive system (principal); Z98.84 Bariatric surgery status
CPT/HCPCS: 99211

== ENCOUNTER → 2018-08-14 | Outpatient (CLI) | payer MEDICARE, OTHER ==
[2018-08-14 11:12] VITALS: BP 130/69; PULSE 94; TEMP 97.8; BMI 45.3
--- NOTE | 2018-08-14 20:56 | P.PN ---
Subjective Progress Note Date: 08/14/18 DATE OF SERVICE: 08/14/2018 CHIEF COMPLAINT: Morbid obesity HISTORY OF PRESENT ILLNESS: Chelsey Mar is a 63-year-old female status post gastric bypass, 08/03/2018. She is 2 weeks out from sleeve to gastric bypass. She is doing well. She is tolerating diet. Pain is well controlled. No fevers or chills. At her height of 5 feet 4 inches her ideal body weight is 144 pounds. Her highest weight was 365 pounds. Today she comes in 263 pounds from 265 pounds, 1 week ago. She has lost 2 pounds in 1 week. She has maintained a 102 pound weight loss lifetime. Percent excess weight loss is 46 %. Body mass index is reduced from 62.8 down to 45.3. PHYSICAL EXAM: VITAL SIGNS: 5 feet 4 inches; 263 pounds. Body mass index 45.3 Vital Signs Temp 97.8 F 08/14/18 10:23 Pulse 94 08/14/18 10:23 Resp BP 130/69 08/14/18 10:23 Pulse Ox ABDOMEN: Soft, nondistended. Nontender. No cellulitis. GENERAL: Well developed female in no acute distress. MUSCULOSKELETAL: No clubbing, cyanosis or edema. HEENT: No scleral icterus. Extraocular movements are intact. Head is atraumatic, normocephalic. Hears conversational speech. NECK: Nontender. No lymphadenopathy. CHEST: Nonlabored respirations. Equal bilateral excursions. CARDIOVASCULAR: Regular rate. Regular rhythm. 2+ radial pulses NEURO: No focal or lateralizing signs. Cranial nerves II to XII grossly intact. PSYCH: Appropriate affect. Alert and oriented to person, place and time. SKIN: Well perfused. Good skin turgor. ASSESSMENT: 1. Morbid obesity due to excess calories. 2. Body mass index reduced from 61.2 down to 45.3 3. Status post sleeve to gastric bypass PLAN: 1. May start. Diet. 2. Follow-up in 2 weeks. Objective - Vital Signs Vital signs: Vital Signs Temp 97.8 F 08/14/18 10:23 Pulse 94 08/14/18 10:23 Resp BP 130/69 08/14/18 10:23 Pulse Ox Intake & Output 08/14/18 08/14/18 08/15/18 06:59 18:59 06:59 Weight 119.748 kg
== END | disposition home or self-care (01) ==
LOC: BARWHC3 09:45
PROVIDERS: ATTEND Surgery Plastic and Reconstructive Surgery
DX: Z48.815 Encounter for surgical aftercare following surgery on the digestive system (principal); E66.01 Morbid (severe) obesity due to excess calories; Z68.42 Body mass index [BMI] 45.0-49.9, adult; Z98.84 Bariatric surgery status
CPT/HCPCS: 99211

== ENCOUNTER → 2018-08-17 | Outpatient (CLI) | payer MEDICARE, OTHER | LOC: LABWHC1 08:52 | PROVIDERS: ATTEND Psychiatry & Neurology Pain Medicine | DX: R90.82 White matter disease, unspecified (principal) | CPT/HCPCS: 36415; 82040; 82042; 82784; 83873; 83916; 84157 ==

== ENCOUNTER → 2018-08-26 | Outpatient (CLI) | payer MEDICARE, OTHER ==
[2018-08-26 13:13] VITALS: BP 156/82; PULSE 84; RESP 16; TEMP 97.5; BMI 43.2
--- NOTE | 2018-08-26 13:27 | P.PN ---
Subjective Progress Note Date: 08/26/18 HPI: She has no complaints from her revision from sleeve to gastric bypass. No fevers or chills. No further reflux. She is tolerating diet and eats 3 tablespoons. She has lost 20 pounds in 2 months and is happy with her weight loss. She is 3 weeks out. No dysphagia. ABDOMEN: Incisions granulated. ASSESSMENT: 1. S/p gastric bypass from revision PLAN: 1. She is doing very well 2. Weight loss is excellent 3. Bariatric labs today. 4. Transitional MVI next week. Objective - Vital Signs Vital signs: Vital Signs Temp 97.5 F L 08/26/18 13:09 Pulse 84 08/26/18 13:09 Resp 16 08/26/18 13:09 BP 156/82 08/26/18 13:09 Pulse Ox Intake & Output 08/25/18 08/26/18 08/26/18 18:59 06:59 18:59 Weight 114.305 kg
[2018-08-26 14:12] LABS: HCT 40.3 % (34.0-46.0); HGB 12.6 gm/dL (11.4-16.0); MCH 29.3 pg (25.0-35.0); MCHC 31.3 g/dL (31.0-37.0); MCV 93.4 fL (80.0-100.0); Mean Platelet Volume 7.9; RBC 4.31 m/uL (3.80-5.40); RDW 13.9 % (11.5-15.5); WBC 3.9 k/uL (3.8-10.6)
[2018-08-26 14:14] LABS: Platelet Count 301 k/uL (150-450)
[2018-08-26 14:16] LABS: INR 1.1 (<1.2); Partial Thromboplastin Time 24.8 sec (22.0-30.0); Prothrombin Time 11.2 sec (9.0-12.0)
[2018-08-26 19:19] LABS: Iron Saturation 16.14 (12.00-45.00)
[2018-08-26 19:20] LABS: Albumin 4.1 g/dL (3.80-4.90); Albumin/Globulin Ratio 1.71 (1.60-3.17); Anion Gap 9.6 mmol/L (4.00-12.00); Calcium 9.6 mg/dL (8.7-10.3); Carbon Dioxide 25.4 mmol/L (21.6-31.8); Globulin 2.4 g/dL (1.6-3.3); Magnesium 1.9 mg/dL (1.5-2.4); Phosphorus 4.2 mg/dL (2.4-5.1); Potassium 4.3 mmol/L (3.5-5.5); Total Bilirubin 0.5 mg/dL (0.3-1.2); Total Protein 6.5 g/dL (6.2-8.2)
[2018-08-26 19:28] LABS: Vitamin D 25 Hydroxy 32.5 ng/mL (30.0-100.0)
[2018-08-26 19:42] LABS: Folate, Serum 22.2 ng/mL
[2018-08-26 21:17] LABS: Hemoglobin A1C 5.4 % (4.0-6.0)
[2018-08-27 13:58] LABS: Zinc, Serum 62 ug/dL (60-130)
[2018-08-28 06:24] LABS: Vitamin A 33 ug/dL (38-106)
== END ==
LOC: BARWHC3 12:40
PROVIDERS: ATTEND Surgery Plastic and Reconstructive Surgery
DX: Z48.815 Encounter for surgical aftercare following surgery on the digestive system (principal); K66.8 Other specified disorders of peritoneum; E66.01 Morbid (severe) obesity due to excess calories; E21.1 Secondary hyperparathyroidism, not elsewhere classified; E89.1 Postprocedural hypoinsulinemia; D50.9 Iron deficiency anemia, unspecified; K90.9 Intestinal malabsorption, unspecified; E44.0 Moderate protein-calorie malnutrition; E55.9 Vitamin D deficiency, unspecified; K74.1 Hepatic sclerosis; N19 Unspecified kidney failure; K50.90 Crohn's disease, unspecified, without complications; Z98.84 Bariatric surgery status
CPT/HCPCS: 84255; 84134; 84425; 80061; 80053; 82607; 82728; 82525; 82746; 83540; 83550; 83735; 84100; 84443; 84590; 84630; 85027; 85610; 85730; 82306; 83970; 83036; G0463; 99211

== ENCOUNTER → 2018-11-04 | Outpatient (CLI) | payer MEDICARE, OTHER ==
--- NOTE | 2018-11-04 11:41 | US ---
EXAMINATION TYPE: US venous doppler duplex LE LT DATE OF EXAM: 11/04/2018 10:56 AM COMPARISON: NONE CLINICAL HISTORY: R60.0 Edema. Leg swelling. No redness. Hx of knee replacement 10/26/2018. On blood thinners. SIDE PERFORMED: Left TECHNIQUE: The lower extremity deep venous system is examined utilizing real time linear array sonog murtaza with graded compression, doppler sonography and color-flow sonography. VESSELS IMAGED: External Iliac Vein (EIV) Common Femoral Vein Deep Femoral Vein Greater Saphenous Vein * Femoral Vein Popliteal Vein Small Saphenous Vein * Proximal Calf Veins (* superficial vessels) Grayscale, color doppler, spectral doppler imaging performed of the deep veins of the left lower extr emity. There is normal flow, compressibility, vascular waveforms. Left Leg: Negative for DVT IMPRESSION: No sonographic evidence of deep venous thrombosis within the left lower extremity.
== END | disposition home or self-care (01) ==
LOC: RADUSWWP 10:09
PROVIDERS: ATTEND Family Medicine
DX: R60.0 Localized edema (principal)

== ENCOUNTER → 2018-11-11 | Outpatient (CLI) | payer MEDICARE, OTHER | END | disposition home or self-care (01) | LOC: LABWHC1 13:33 | PROVIDERS: ATTEND Internal Medicine Endocrinology, Diabetes & Metabolism | DX: Z53.9 Procedure and treatment not carried out, unspecified reason (principal) ==

== ENCOUNTER → 2018-11-11 | Outpatient (CLI) | payer MEDICARE, OTHER ==
--- NOTE | 2018-11-11 13:24 | P.PN ---
Subjective Progress Note Date: 11/11/18 HPI: She is doing well. No food getting stuck. She is 3 months out. No constipation. She has lost almost 40 pounds in 6 months. She is s/p left total knee replacement less than 2 weeks ago. She is on a blood thinner. She denies any trouble from her gastric bypass conversion from a sleeve. She ambulates fr equently. She reports okay to eat bake and grilled chickem MS: 3+ pitting edema of the left leg pre-tibial. ASSESSMENT: 1. Morbid obesity PLAN: 1. Bariatric labs today. 2. Follow up 6 months in January
[2018-11-11 13:31] VITALS: BP 159/77; PULSE 100; RESP 16; TEMP 97.9; BMI 40.6
[2018-11-11 14:23] LABS: Anisocytosis Slight; HCT 34.5 % (34.0-46.0); Hypochromasia Slight; MCH 29.8 pg (25.0-35.0); MCHC 31.7 g/dL (31.0-37.0); Mean Platelet Volume 7.7; Partial Thromboplastin Time 26.7 sec (22.0-30.0); Platelet Count 379 k/uL (150-450); Prothrombin Time 10.5 sec (9.0-12.0); RBC 3.67 m/uL (3.80-5.40); RDW 16.3 % (11.5-15.5); WBC 4.3 k/uL (3.8-10.6)
[2018-11-11 18:14] LABS: Iron Saturation 17.35 (12.00-45.00)
[2018-11-11 18:17] LABS: African American GFR (CKD) 90.9 (60.0-200.0); Albumin 3.8 g/dL (3.80-4.90); Albumin/Globulin Ratio 1.52 (1.60-3.17); Anion Gap 9.7 mmol/L (4.00-12.00); BUN/Creat Ratio 11.25 Ratio (12.00-20.00); Calcium 9.2 mg/dL (8.7-10.3); Carbon Dioxide 28.3 mmol/L (21.6-31.8); Chol/HDL Ratio 2.04; Globulin 2.5 g/dL (1.6-3.3); LDL Cholesterol,Calculated 62.2 mg/dL (0.0-131.0); Phosphorus 3.6 mg/dL (2.4-5.1); Potassium 4.1 mmol/L (3.5-5.5); Total Bilirubin 0.3 mg/dL (0.3-1.2); Total Protein 6.3 g/dL (6.2-8.2); VLDL Calculation 20.8 mg/dL (5.00-40.00)
[2018-11-11 18:22] LABS: Vitamin D 25 Hydroxy 28.2 ng/mL (30.0-100.0)
[2018-11-11 18:43] LABS: Folate, Serum >24.0 ng/mL
[2018-11-11 20:38] LABS: Hemoglobin A1C 5.4 % (4.0-6.0)
[2018-11-12 11:45] LABS: Zinc, Serum 71 ug/dL (60-130)
[2018-11-13 06:38] LABS: Vitamin A 39 ug/dL (38-106)
[2018-11-13 12:15] LABS: Vit B1(Thiamine) 44 ug/L (38-122)
[2018-11-14 20:19] LABS: Selenium 76 mcg/L (63-160)
== END | disposition home or self-care (01) ==
LOC: BARWHC3 12:43
PROVIDERS: ATTEND Surgery Plastic and Reconstructive Surgery
DX: E66.01 Morbid (severe) obesity due to excess calories (principal); E21.1 Secondary hyperparathyroidism, not elsewhere classified; E89.1 Postprocedural hypoinsulinemia; D50.9 Iron deficiency anemia, unspecified; K90.9 Intestinal malabsorption, unspecified; E55.9 Vitamin D deficiency, unspecified; K76.9 Liver disease, unspecified; N19 Unspecified kidney failure; K50.90 Crohn's disease, unspecified, without complications; Z98.84 Bariatric surgery status; Z96.652 Presence of left artificial knee joint; Z79.01 Long term (current) use of anticoagulants; Z68.41 Body mass index [BMI] 40.0-44.9, adult
CPT/HCPCS: 84255; 84134; 84425; 80061; 80053; 82607; 82728; 82525; 82746; 83540; 83550; 83735; 84100; 84443; 84590; 84630; 85027; 85610; 85730; 82306; 83970; 83036; G0463; 99211

== ENCOUNTER → 2018-11-11 | Outpatient (CLI) | payer MEDICARE, OTHER ==
--- NOTE | 2018-11-11 16:19 | US ---
EXAMINATION TYPE: US thyroid st tissue head/neck DATE OF EXAM: 11/11/2018 COMPARISON: NONE CLINICAL HISTORY: E04.1 thyroid nodule. FU thyroid nodules. Hx bx- neg. On thyroid meds. GLAND SIZE: Right Lobe: 5.5 x 2.2 x 2.2 cm Overall Parenchyma: heterogenous Left Lobe: 5.4 x 2.2 x 2.3 cm Overall Parenchyma: heterogeneous Isthmus Thickness: 1.1 cm NODULES RIGHT: # of nodules measured on right: 1 1. 0.4 X 0.3 x 0.3 cm hypoechoic nodule at the upper pole with well-defined margins. This nodule i s wide as tall and shows no intranodular vascularity. Prior size: 0.3 x 0.3 x 0.3 cm LEFT: # of nodules measured on left: 2 1. 0.5 X 0.6 x 0.3 cm cystic nodule at the upper pole with well-defined margins. This nodule is wi sanaz than tall and shows no intranodular vascularity. Prior size: 0.5 x 0.6 x 0.2 cm 2. 0.9 X 0.9 x 0.9 cm echogenic nodule at the mid/medial pole with well-defined margins. This nodul e is wide as tall and shows peripheral vascularity. Prior size: 0.6 x 0.7 x 0.7 cm ISTHMUS: # of nodules measured in the isthmus: 0 Bilateral neck scanned, no evidence of lymphadenopathy. Bilateral thyroid lobes appear enlarged. IMPRESSION: 1. Subcentimeter nodules bilateral thyroid lobes. 2. A nodule within the mid medial left lobe thyroid is approaching 1 cm in size in size from comparis on. Close monitoring this nodule is recommended.
== END | disposition home or self-care (01) ==
LOC: RADUSWWP 11:59
PROVIDERS: ATTEND Internal Medicine Endocrinology, Diabetes & Metabolism
DX: E04.1 Nontoxic single thyroid nodule (principal); E05.20 Thyrotoxicosis with toxic multinodular goiter without thyrotoxic crisis or storm
CPT/HCPCS: 76536; 84439; 84480

== ENCOUNTER → 2019-02-10 | Outpatient (CLI) | payer MEDICARE, OTHER ==
[2019-02-10 14:56] LABS: Partial Thromboplastin Time 24.5 sec (22.0-30.0); Prothrombin Time 10.5 sec (9.0-12.0)
[2019-02-10 15:18] LABS: HCT 38.4 % (34.0-46.0); HGB 12.8 gm/dL (11.4-16.0); MCH 31.4 pg (25.0-35.0); MCHC 33.4 g/dL (31.0-37.0); Mean Platelet Volume 7.4; Platelet Count 205 k/uL (150-450); RBC 4.09 m/uL (3.80-5.40); RDW 13.4 % (11.5-15.5); WBC 3.5 k/uL (3.8-10.6)
[2019-02-10 18:34] LABS: African American GFR (CKD) 90.9 (60.0-200.0); Albumin 4.2 g/dL (3.80-4.90); Albumin/Globulin Ratio 1.75 (1.60-3.17); Anion Gap 5.2 mmol/L (4.00-12.00); BUN/Creat Ratio 16.25 Ratio (12.00-20.00); Calcium 9.6 mg/dL (8.7-10.3); Carbon Dioxide 30.8 mmol/L (21.6-31.8); Chol/HDL Ratio 2.2; Globulin 2.4 g/dL (1.6-3.3); Iron Saturation 33.33 (12.00-45.00); Magnesium 2.1 mg/dL (1.5-2.4); Phosphorus 4.3 mg/dL (2.4-5.1); Potassium 4.3 mmol/L (3.5-5.5); Total Bilirubin 0.4 mg/dL (0.3-1.2); Total Protein 6.6 g/dL (6.2-8.2)
[2019-02-10 18:42] LABS: Vitamin D 25 Hydroxy 41.8 ng/mL (30.0-100.0)
[2019-02-10 18:54] LABS: Ferritin 492.2 ng/mL (10.0-291.0); Folate, Serum 23.1 ng/mL
[2019-02-11 01:49] LABS: Hemoglobin A1C 5.6 % (4.0-6.0)
[2019-02-11 13:04] LABS: Zinc, Serum 69 ug/dL (60-130)
[2019-02-12 07:03] LABS: Vitamin A 38 ug/dL (38-106)
[2019-02-12 12:41] LABS: Vit B1(Thiamine) 36 ug/L (38-122)
== END | disposition home or self-care (01) ==
LOC: LABWHC1 13:45
PROVIDERS: ATTEND Surgery Plastic and Reconstructive Surgery
DX: E21.1 Secondary hyperparathyroidism, not elsewhere classified (principal); D50.9 Iron deficiency anemia, unspecified; E44.0 Moderate protein-calorie malnutrition; E55.9 Vitamin D deficiency, unspecified; K74.1 Hepatic sclerosis; N19 Unspecified kidney failure; K50.90 Crohn's disease, unspecified, without complications
CPT/HCPCS: 36415; 80053; 80061; 82306; 82525; 82607; 82728; 82746; 83036; 83540; 83550; 83735; 83970; 84100; 84255; 84425; 84443; 84590; 84630; 85027; 85610; 85730

== ENCOUNTER → 2019-02-10 | Outpatient (CLI) | payer MEDICARE, OTHER ==
--- NOTE | 2019-02-10 13:20 | P.PN ---
Subjective Progress Note Date: 02/10/19 DATE OF SERVICE: 02/10/2019 CHIEF COMPLAINT: Morbid obesity HISTORY OF PRESENT ILLNESS: Chelsey Mar is a 63-year-old female status post gastric bypass, 08/03/2018. She is 6 months out. She has no heartburn. No reports of gastroesophageal reflux disease. She is tolerating foods. No reports of abdominal pain. She had a knee replacement in October, 3 months ago. She is no longer using a cane. At her height of 5 feet 4 inches her ideal body weight is 144 pounds. Her highest weight was 365 pounds. Today she comes in 230 pounds from 237 pounds, 3 months ago. She has lost 7 pounds in 3 months. She has maintained a 135 pound weight loss lifetime. Percent excess weight loss is 61 % from her highest weigh t. Body mass index is reduced from 62.8 down to 39.5. PHYSICAL EXAM: VITAL SIGNS: 5 feet 4 inches; 230 pounds. Body mass index 39.5 Vital Signs Temp 98.0 F 02/10/19 13:16 Pulse 76 02/10/19 13:16 Resp BP 148/87 02/10/19 13:16 Pulse Ox ABDOMEN: Soft, nondistended. Nontender. No hernia. GENERAL: Well developed female in no acute distress. MUSCULOSKELETAL: No clubbing, cyanosis. HEENT: No scleral icterus. Extraocular movements are intact. Head is atraumatic, normocephalic. Hears conversational speech. NECK: Nontender. No lymphadenopathy. CHEST: Nonlabored respirations. Equal bilateral excursions. CARDIOVASCULAR: Regular rate. Regular rhythm. 2+ radial pulses NEURO: No focal or lateralizing signs. Cranial nerves II to XII grossly intact. PSYCH: Appropriate affect. Alert and oriented to person, place and time. SKIN: Well perfused. Good skin turgor. ASSESSMENT: 1. Morbid obesity due to excess calories. 2. Body mass index reduced from 61.2 down to 39.5 3. Status post sleeve to gastric bypass conversion 4. Bilateral lower extremity edema 5. Hypothyroidism 6. Osteoarthritis of the knee. PLAN: 1. Recommend bariatric labs. 2. Follow up in 3 months
[2019-02-10 13:24] VITALS: BP 148/87; PULSE 76; TEMP 98; BMI 39.4
== END | disposition home or self-care (01) ==
LOC: BARWHC3 12:40
PROVIDERS: ATTEND Surgery Plastic and Reconstructive Surgery
DX: Z48.815 Encounter for surgical aftercare following surgery on the digestive system (principal); E66.01 Morbid (severe) obesity due to excess calories; R60.0 Localized edema; M17.10 Unilateral primary osteoarthritis, unspecified knee; E03.9 Hypothyroidism, unspecified; Z68.39 Body mass index [BMI] 39.0-39.9, adult; Z98.84 Bariatric surgery status
CPT/HCPCS: 99211

== ENCOUNTER → 2019-05-19 | Outpatient (CLI) | payer MEDICARE, OTHER ==
[2019-05-19 15:19] VITALS: BP 148/79; PULSE 87; TEMP 97.4; BMI 40.8
--- NOTE | 2019-05-19 15:48 | P.PN ---
Subjective Progress Note Date: 05/19/19 She comes in with pain along right knee. She has a mcconnell's cysts. She sees a pain specialist. No belly pain. No food getting stuck. She comes in with weight gain from steroids. Recommend orthopedic referral for mcconnell's cysts. Labs are pending 9 month out Objective - Vital Signs Vital signs: Vital Signs Temp 97.4 F L 05/19/19 15:07 Pulse 87 05/19/19 15:07 Resp BP 148/79 05/19/19 15:07 Pulse Ox Intake & Output 05/18/19 05/19/19 05/19/19 18:59 06:59 18:59 Weight 107.864 kg
== END | disposition home or self-care (01) ==
LOC: BARWHC3 14:45
PROVIDERS: ATTEND Surgery Plastic and Reconstructive Surgery
DX: E66.01 Morbid (severe) obesity due to excess calories (principal); Z68.41 Body mass index [BMI] 40.0-44.9, adult; M25.561 Pain in right knee
CPT/HCPCS: 99211

== ENCOUNTER → 2019-05-20 | Outpatient (CLI) | payer MEDICARE, OTHER ==
[2019-05-20 14:41] LABS: HCT 40.8 % (34.0-46.0); HGB 13.1 gm/dL (11.4-16.0); MCH 31.3 pg (25.0-35.0); MCHC 32.1 g/dL (31.0-37.0); MCV 97.3 fL (80.0-100.0); Mean Platelet Volume 8.9; Platelet Count 216 k/uL (150-450); RBC 4.19 m/uL (3.80-5.40); RDW 13.5 % (11.5-15.5)
[2019-05-20 14:58] LABS: Partial Thromboplastin Time 22.2 sec (22.0-30.0); Prothrombin Time 10.3 sec (9.0-12.0)
[2019-05-20 18:48] LABS: % Iron Saturation 23.38 (12.00-45.00); ALT 28 U/L (8-44); AST 25 U/L (13-35); African American GFR (CKD) 106.9 (60.0-200.0); Albumin/Globulin Ratio 1.82 (1.60-3.17); Alkaline Phosphatase 123 U/L (41-126); Calcium 9.2 mg/dL (8.7-10.3); Carbon Dioxide 30.2 mmol/L (21.6-31.8); Chloride 99 mmol/L (96-109); Chol/HDL Ratio 2.06; Cholesterol 167 mg/dL (0-200); Globulin 2.2 g/dL (1.6-3.3); Glucose 87 mg/dL (70-110); Iron 54 ug/dL (50-170); LDL Cholesterol,Calculated 59.4 mg/dL (0.0-131.0); Non-African American GFR(CKD) 92.2 (60.0-200.0); Phosphorus 4.6 mg/dL (2.4-5.1); Potassium 4.4 mmol/L (3.5-5.5); Sodium 136 mmol/L (135-145); Total Bilirubin 0.2 mg/dL (0.3-1.2); Total Iron Binding Capacity 231 ug/dL (228-460); Total Protein 6.2 g/dL (6.2-8.2)
[2019-05-20 19:00] LABS: Ferritin 280.9 ng/mL (10.0-291.0)
[2019-05-20 19:08] LABS: Folate, Serum >24.0 ng/mL
[2019-05-20 20:37] LABS: Hemoglobin A1C 5.4 % (4.0-6.0)
[2019-05-21 11:04] LABS: Zinc, Serum 60 ug/dL (60-130)
[2019-05-21 15:15] LABS: Vitamin A 43 ug/dL (38-106)
[2019-05-23 01:20] LABS: Selenium 86 mcg/L (63-160)
[2019-05-24 08:29] LABS: Vit B1(Thiamine) 38 ug/L (38-122)
== END | disposition home or self-care (01) ==
LOC: LABWHC1 13:58
PROVIDERS: ATTEND Surgery Plastic and Reconstructive Surgery
DX: E21.1 Secondary hyperparathyroidism, not elsewhere classified (principal); D60.9 Acquired pure red cell aplasia, unspecified; K90.9 Intestinal malabsorption, unspecified; E55.9 Vitamin D deficiency, unspecified; K74.1 Hepatic sclerosis; N19 Unspecified kidney failure; K50.90 Crohn's disease, unspecified, without complications
CPT/HCPCS: 36415; 80053; 80061; 82525; 82607; 82728; 82746; 83036; 83540; 83550; 83735; 83970; 84100; 84134; 84255; 84425; 84443; 84590; 84630; 85027; 85610; 85730

== ENCOUNTER → 2019-05-21 | Outpatient (CLI) | payer MEDICARE, OTHER ==
--- NOTE | 2019-05-24 09:09 | MM ---
Reason for exam: screening (asymptomatic). Last mammogram was performed 1 year ago. History: Patient is postmenopausal. Physical Findings: A clinical breast exam by your physician is recommended on an annual basis and results should be correlated with mammographic findings. MG Screening Mammo w CAD Bilateral CC, MLO, and XCCL view(s) were taken. Prior study comparison: May 15, 2018, bilateral MG screening mammo w CAD. May 02, 2016, bilateral MG screening mammo w CAD. The breast tissue is extremely dense which could obscure a lesion on mammography. No significant changes when compared with prior studies. ASSESSMENT: Benign, BI-RAD 2 RECOMMENDATION: Routine screening mammogram of both breasts in 1 year.
== END | disposition home or self-care (01) ==
LOC: RADMAMWWP 07:32
PROVIDERS: ATTEND Family Medicine
DX: Z12.31 Encounter for screening mammogram for malignant neoplasm of breast (principal)
CPT/HCPCS: 77067

== ENCOUNTER → 2019-07-27 | Outpatient (CLI) | payer MEDICARE, OTHER ==
[2019-07-27 15:54] LABS: African American GFR (CKD) 106.1 (60.0-200.0); Albumin 4.1 g/dL (3.80-4.90); Albumin/Globulin Ratio 1.58 (1.60-3.17); Anion Gap 7.6 mmol/L (4.00-12.00); BUN/Creat Ratio 18.57 Ratio (12.00-20.00); Calcium 9.2 mg/dL (8.7-10.3); Carbon Dioxide 31.4 mmol/L (21.6-31.8); Globulin 2.6 g/dL (1.6-3.3); Non-African American GFR(CKD) 91.6 (60.0-200.0); Potassium 4.5 mmol/L (3.5-5.5); Total Bilirubin 0.3 mg/dL (0.3-1.2); Total Protein 6.7 g/dL (6.2-8.2)
== END | disposition home or self-care (01) ==
LOC: LABWHC1 10:55
PROVIDERS: ATTEND Internal Medicine Endocrinology, Diabetes & Metabolism
DX: E05.20 Thyrotoxicosis with toxic multinodular goiter without thyrotoxic crisis or storm (principal)
CPT/HCPCS: 36415; 80053; 84439; 84443; 84480

== ENCOUNTER → 2019-10-25 | Outpatient (CLI) | payer MEDICARE, OTHER ==
[2019-10-25 16:59] LABS: T4, Free (Free Thyroxine) 1.1 ng/dL (0.80-1.80)
== END | disposition home or self-care (01) ==
LOC: LABWHC1 08:10
PROVIDERS: ATTEND Internal Medicine Endocrinology, Diabetes & Metabolism
DX: E05.20 Thyrotoxicosis with toxic multinodular goiter without thyrotoxic crisis or storm (principal)
CPT/HCPCS: 36415; 84439; 84443; 84480

== ENCOUNTER → 2019-11-17 | Outpatient (CLI) | payer MEDICARE, OTHER ==
[2019-11-17 13:16] VITALS: BP 152/84; PULSE 81; TEMP 98.1; BMI 42.2
--- NOTE | 2019-11-17 13:40 | P.PN ---
Subjective Progress Note Date: 11/17/19 DATE OF SERVICE: 11/17/2019 CHIEF COMPLAINT: Status post gastric bypass HISTORY OF PRESENT ILLNESS: Chelsey Mar is a 64-year-old female status post gastric bypass, 08/03/2018. She is over 1 year out. She comes in with 10 pound weight gain. She reports trouble with her skin. She is using Nystatin powder for panniculitis. She reports she wants a panniculectomy. She reports irritation from her 20 pounds of skin along her pannus. She has gained weight from Coronavirus pandemic. She is no longer using a cane. At her height of 5 feet 4 inches her ideal body weight is 144 pounds. Her highest weight was 365 pounds. Today she comes in 245 pounds from 237 pounds, 6 months ago. She has gained 8 pounds in 6 months. She has maintained a 120 pound weight loss lifetime. Percent lifetime excess weight loss is 54 % Body mass index is reduced from 62.8 down to 42.2. PHYSICAL EXAM: VITAL SIGNS: 5 feet 4 inches; 245 pounds. Body mass index 42.2 Vital Signs Temp 98.1 F 11/17/19 13:13 Pulse 81 11/17/19 13:13 Resp BP 152/84 11/17/19 13:13 Pulse Ox ABDOMEN: Soft, nondistended. Nontender. No hernia. Pannus over 20 pounds, grade 2 panniculus GENERAL: Well developed female in no acute distress. MUSCULOSKELETAL: No clubbing, cyanosis. HEENT: No scleral icterus. Extraocular movements are intact. Head is atraumatic, normocephalic. Hears conversational speech. NECK: Nontender. No lymphadenopathy. CHEST: Nonlabored respirations. Equal bilateral excursions. CARDIOVASCULAR: Regular rate. Regular rhythm. 2+ radial pulses NEURO: No focal or lateralizing signs. Cranial nerves II to XII grossly intact. PSYCH: Appropriate affect. Alert and oriented to person, place and time. SKIN: Well perfused. Good skin turgor. LABS: Reviewed. TSH is normal ASSESSMENT: 1. Morbid obesity due to excess calories. 2. Body mass index reduced from 61.2 down to 42.2 3. Status post sleeve to gastric bypass conversion 4. Bilateral lower extremity edema 5. Hypothyroidism 6. Osteoarthritis of the knee. 7. Witt's cyst 8. Panniculitis PLAN: 1. Continue Nystatin powder 2. She reports chronic back pain exacerbated by her pannus. Recommend evaluation for panniculectomy Objective - Vital Signs Vital signs: Vital Signs Temp 98.1 F 11/17/19 13:13 Pulse 81 11/17/19 13:13 Resp BP 152/84 11/17/19 13:13 Pulse Ox Intake & Output 11/16/19 11/17/19 11/17/19 18:59 06:59 18:59 Weight 111.584 kg - Labs CBC & Chem 7: 11/17/19 14:07 11/17/19 14:07
[2019-11-17 14:42] LABS: HCT 40.3 % (34.0-46.0); HGB 12.7 gm/dL (11.4-16.0); MCH 30.9 pg (25.0-35.0); MCHC 31.6 g/dL (31.0-37.0); Mean Platelet Volume 8.5; Platelet Count 231 k/uL (150-450); RBC 4.12 m/uL (3.80-5.40); RDW 13.2 % (11.5-15.5); WBC 4.3 k/uL (3.8-10.6)
[2019-11-17 17:54] LABS: INR 0.99 (0.90-1.11); Partial Thromboplastin Time 25.8 sec (24.7-29.9); Prothrombin Time 10.6 sec (9.9-11.9)
[2019-11-17 19:00] LABS: ALT 21 U/L (8-44); AST 25 U/L (13-35); African American GFR (CKD) 90.3 (60.0-200.0); Alkaline Phosphatase 122 U/L (41-126); BUN/Creat Ratio 23.75 Ratio (12.00-20.00); Calcium 9.3 mg/dL (8.7-10.3); Carbon Dioxide 32.5 mmol/L (21.6-31.8); Chloride 102 mmol/L (96-109); Chol/HDL Ratio 2.13; Cholesterol 170 mg/dL (0-200); Globulin 2.5 g/dL (1.6-3.3); Glucose 82 mg/dL (70-110); Iron 61 ug/dL (50-170); Non-African American GFR(CKD) 77.9 (60.0-200.0); Phosphorus 3.7 mg/dL (2.4-5.1); Potassium 4.2 mmol/L (3.5-5.5); Sodium 138 mmol/L (135-145); Total Bilirubin 0.3 mg/dL (0.3-1.2); Total Iron Binding Capacity 249 ug/dL (228-460); Total Protein 6.5 g/dL (6.2-8.2)
[2019-11-17 19:10] LABS: Ferritin 256.7 ng/mL (10.0-291.0)
[2019-11-17 19:11] LABS: Folate, Serum >24.0 ng/mL
[2019-11-17 22:48] LABS: Hemoglobin A1C 5.7 % (4.0-6.0)
[2019-11-18 13:24] LABS: Zinc, Serum 67 ug/dL (60-130)
[2019-11-19 06:52] LABS: Vitamin A 45 ug/dL (38-106)
[2019-11-19 07:18] LABS: Vit B1(Thiamine) 41 ug/L (38-122)
[2019-11-21 04:12] LABS: Selenium 95 mcg/L (63-160)
== END | disposition home or self-care (01) ==
LOC: BARWHC3 13:04
PROVIDERS: ATTEND Surgery Plastic and Reconstructive Surgery
DX: E66.01 Morbid (severe) obesity due to excess calories (principal); E21.1 Secondary hyperparathyroidism, not elsewhere classified; D50.9 Iron deficiency anemia, unspecified; K90.9 Intestinal malabsorption, unspecified; E55.9 Vitamin D deficiency, unspecified; K74.1 Hepatic sclerosis; N19 Unspecified kidney failure; K50.90 Crohn's disease, unspecified, without complications; E89.1 Postprocedural hypoinsulinemia; Z68.41 Body mass index [BMI] 40.0-44.9, adult; Z98.84 Bariatric surgery status
CPT/HCPCS: 84255; 84134; 84425; 80061; 80053; 82607; 82728; 82525; 82746; 83540; 83550; 83735; 84100; 84590; 84630; 85027; 85610; 85730; 82306; 83970; 83036; 36415; G0463; 99211

== ENCOUNTER → 2020-01-31 | Outpatient (CLI) | payer MEDICARE, OTHER ==
[2020-01-31 15:25] LABS: T4, Free (Free Thyroxine) 0.9 ng/dL (0.80-1.80)
== END | disposition home or self-care (01) ==
LOC: LABWHC1 08:06
PROVIDERS: ATTEND Internal Medicine Endocrinology, Diabetes & Metabolism
DX: E05.20 Thyrotoxicosis with toxic multinodular goiter without thyrotoxic crisis or storm (principal)
CPT/HCPCS: 36415; 84439; 84443; 84480

== ENCOUNTER → 2020-02-03 | Outpatient (CLI) | payer MEDICARE, OTHER ==
--- NOTE | 2020-02-03 08:58 | US ---
EXAMINATION TYPE: US thyroid st tissue head/neck DATE OF EXAM: 02/03/2020 COMPARISON: NONE CLINICAL HISTORY: E04.2 Multinodular Goiter. GLAND SIZE: Right Lobe: 6.4 X 2.0 X 2.1 cm Overall Parenchyma: heterogenous Left Lobe: 6.0 X 2.1 X 2.6 cm Overall Parenchyma: heterogeneous Isthmus Thickness: 0.5 cm NODULES RIGHT: # of nodules measured on right: 1 1. 0.4 X 0.3 x 0.4 cm hypoechoic nodule at the upper pole with well-defined margins. This nodule is wide as tall and shows no intranodular vascularity. Prior size: 0.4 x 0.3 x 0.3 cm LEFT: # of nodules measured on left: 2 1. 0.5 X 0.4 x 0.4 cm cystic nodule at the upper pole with well-defined margins. This nodule is wider than tall and shows no intranodular vascularity. Prior size: 0.5 x 0.6 x 0.3 cm 2. 0.9 X 1.1 x 0.9 cm echogenic nodule at the mid/medial pole with well- defined margins. This nodul e is wide as tall and shows peripheral vascularity. Prior size: 0.9 x 0.9 x 0.9 cm ISTHMUS: # of nodules measured in the isthmus: 0 Bilateral neck scanned, no evidence of lymphadenopathy. Bilateral thyroid lobes enlarged. IMPRESSION: 1. Borderline size nodule within the left lobe thyroid midpole. This is stable from comparison.
== END | disposition home or self-care (01) ==
LOC: RADUSWWP 08:07
PROVIDERS: ATTEND Internal Medicine Endocrinology, Diabetes & Metabolism
DX: E04.1 Nontoxic single thyroid nodule (principal)
CPT/HCPCS: 76536

== ENCOUNTER → 2020-02-08 | Outpatient (CLI) | payer MEDICARE, OTHER ==
--- NOTE | 2020-02-08 10:42 | XR ---
EXAMINATION TYPE: XR chest 2V DATE OF EXAM: 02/08/2020 COMPARISON: 05/20/2016 HISTORY: Shortness of breath TECHNIQUE: Frontal and lateral views of the chest are obtained. FINDINGS: Scattered senescent parenchymal changes noted. Hyperinflation compatible with COPD. No evidence for infiltrate. No evidence for atelectasis. Heart size is stable. Mediastinal structures are stable and grossly unremarkable. No evidence for hilar prominence. Degenerative changes dorsal spine. IMPRESSION: 1. No evidence for acute pulmonary disease.
== END | disposition home or self-care (01) ==
LOC: RADXRMAIN 10:15
PROVIDERS: ATTEND Nurse Practitioner Family
DX: Z11.1 Encounter for screening for respiratory tuberculosis (principal)
CPT/HCPCS: 71046

== ENCOUNTER → 2020-05-15 | Outpatient (CLI) | payer MEDICARE, OTHER | END | disposition home or self-care (01) | LOC: LABWHC1 09:34 | PROVIDERS: ATTEND Internal Medicine Endocrinology, Diabetes & Metabolism | DX: E05.20 Thyrotoxicosis with toxic multinodular goiter without thyrotoxic crisis or storm (principal) | CPT/HCPCS: 36415; 84439; 84443; 84480 ==

== ENCOUNTER → 2020-06-07 | Outpatient (CLI) | payer MEDICARE, OTHER ==
[2020-06-07 16:19] VITALS: BP 144/85; PULSE 93; RESP 18; TEMP 98.3; BMI 44.9
--- NOTE | 2020-06-07 16:23 | P.PN ---
Subjective Progress Note Date: 06/07/20 DATE OF SERVICE: 06/07/2020 CHIEF COMPLAINT: Status post gastric bypass HISTORY OF PRESENT ILLNESS: Chelsey Mar is a 64-year-old female status post gastric bypass, 08/03/2018. She is almost 2 years out. She presents with a new concern of abdominal pain. She comes in with sharp pulling sensation along the right lower quadrant pain. She has history of multiple abdominal surgeries and pelvic surgery. She has gained 30+ pounds in 3 years. She also reports trouble with her apron. At her height of 5 feet 4 inches her ideal body weight is 144 pounds. Her highest weight was 365 pounds. Today she comes in 261 pounds from 250 pounds, 5 months ago. She has gained 11 pounds in 5 months. She has maintained 104 pound weight loss lifetime. Percent lifetime excess weight loss is 47 %. Body mass index is reduced from 62.8 down to 45.0. PAST MEDICAL HISTORY: 1. Morbid obesity, BMI 62.8 initial 2. Hypertension. 3. Blood glucose intolerance. 4. Thyroid nodules. 5. Diverticulosis. 6. Osteoarthritis of the lower back. 7. Gastroesophageal reflux disease PAST SURGICAL HISTORY: 1. Laparoscopic cholecystectomy. 2. EGD. 3. Sleeve gastrectomy. 4. Paraesophageal hiatal hernia repair. 5. Oophorectomy including exploratory laparotomy. 6. Colonoscopy. 7. Status post back surgery. 8. Status post conversion sleeve to gastric bypass. 9. Hysterectomy MEDICATIONS: Home Medications Medication Instructions Recorded Confirmed Latanoprost Ophth [Xalatan 0.005%] 1 drops BOTH EYES HS 11/26/13 06/07/20 Albuterol Sulfate [Proair Hfa] 2 puff INHALATION RT-Q4H PRN 01/25/14 06/07/20 Butalbital/Aspirin/Caffeine 1 tab PO Q4H PRN 01/25/14 06/07/20 [Fiorinal 50-325-40 MG] Cyclobenzaprine [Flexeril] 10 mg PO HS 02/02/18 06/07/20 methIMAzole [Tapazole] 5 mg PO DAILY 02/02/18 06/07/20 Desipramine HCl [Norpramin] 50 mg PO HS 05/18/18 06/07/20 Previous Rx's Medication Instructions Recorded Omeprazole 40 mg PO DAILY #14 capsule. 06/11/17 HYDROcodone/APAP 7.5-325MG [[place] 1 tab PO Q4H PRN 3 Days #18 tab 08/05/18 7.5-325] bisacodyL [Dulcolax] 5 mg PO DAILY PRN #10 tablet. 08/05/18 ALLERGIES: Allergies Allergy/AdvReac Type Severity Reaction Status Date / Time aspirin Allergy Abdominal Verified 06/07/20 16:12 Pain Penicillins Allergy Itching Verified 06/07/20 16:12 environmental Allergy nose Uncoded 06/07/20 16:12 drainage, watery eyes, sneeze SOCIAL HISTORY: Nontobacco user. FAMILY HISTORY: Pertinent for super morbid obesity. REVIEW OF SYSTEMS: CONSTITUTIONAL: At her height of 5 feet 4 inches her ideal body weight is 144 pounds. Her highest weight was 365 pounds. Body mass index is reduced from 62.8. MUSCULOSKELETAL: Reports lower back pain. Has diffuse joint pain. GASTROINTESTINAL: Has gastroesophageal reflux disease. No dumping syndrome. Has diverticulosis. ENDOCRINE: Has history of thyroid disorder and with thyroid nodules. Prior history of blood sugar glucose intolerance. NEURO: Reports increased neuropathy of the distal lower extremities. CARDIOVASCULAR: Resolution of dyslipidemia. Has hypertension. RESPIRATORY: History obstructive sleep apnea moderately improved. HEENT: No trouble with vision or hearing. PSYCH: No reports of depression or suicidal ideation. HEMATOLOGIC: Denies any abnormal bleeding or bruising. SKIN: No skin cancer. Has panniculitis. PHYSICAL EXAM: VITAL SIGNS: 5 feet 4 inches; 261 pounds. Body mass index 45.0 Vital Signs Temp 98.3 F 06/07/20 16:12 Pulse 93 06/07/20 16:12 Resp 18 06/07/20 16:12 BP 144/85 06/07/20 16:12 Pulse Ox ABDOMEN: Nondistended. Nontender. GENERAL: Well developed female in no acute distress. MUSCULOSKELETAL: No clubbing, cyanosis. HEENT: No scleral icterus. Extraocular movements are intact. Head is atraumatic, normocephalic. Hears conversational speech. NECK: Nontender. No lymphadenopathy. CHEST: Nonlabored respirations. Equal bilateral excursions. CARDIOVASCULAR: Regular rate. Regular rhythm. 2+ radial pulses NEURO: No focal or lateralizing signs. Cranial nerves II to XII grossly intact. PSYCH: Appropriate affect. Alert and oriented to person, place and time. SKIN: Well perfused. Good skin turgor. ASSESSMENT: 1. Morbid obesity due to excess calories. 2. Body mass index reduced from 61.2 down to 45.0 3. Status post sleeve to gastric bypass conversion 4. Bilateral lower extremity edema 5. Hypothyroidism 6. Vitamin D deficiency 7. Panniculitis 8. Secondary hyperparathyroidism 9. Right lower quadrant abdominal pain. 10. Peritoneal adhesions. PLAN: 1. She history of multiple abdominal surgeries including pelvic procedures with high risk of peritoneal adhesions. Recommend lysis of adhesions. 2. She still has her appendix as well in light of her right lower quadrant abdominal pain, where appendectomy may be of benefit. 3. She has central adiposity with troubles with her pannus. Recommend contiue Nystatin powder. 4. Recommend bariatric labs. 5. She is elevated risk for perioperative complications with pre-existing history of multiple abdominal surgeries and history of gastric bypass. 6. Recommend recent 12-lead EKG. Cardiac risk assessment advised for abnormalities of her EKG. Objective - Vital Signs Vital signs: Vital Signs Temp 98.3 F 06/07/20 16:12 Pulse 93 06/07/20 16:12 Resp 18 06/07/20 16:12 BP 144/85 06/07/20 16:12 Pulse Ox Intake & Output 06/06/20 06/07/20 06/07/20 18:59 06:59 18:59 Weight 118.841 kg
== END | disposition home or self-care (01) ==
LOC: BARWHC3 16:02
PROVIDERS: ATTEND Surgery Plastic and Reconstructive Surgery
DX: Z48.815 Encounter for surgical aftercare following surgery on the digestive system (principal); E66.01 Morbid (severe) obesity due to excess calories; E21.1 Secondary hyperparathyroidism, not elsewhere classified; R60.0 Localized edema; E55.9 Vitamin D deficiency, unspecified; E03.9 Hypothyroidism, unspecified; M79.3 Panniculitis, unspecified; R10.31 Right lower quadrant pain; K66.0 Peritoneal adhesions (postprocedural) (postinfection); Z79.899 Other long term (current) drug therapy; Z90.721 Acquired absence of ovaries, unilateral; Z98.84 Bariatric surgery status; Z88.6 Allergy status to analgesic agent; Z88.0 Allergy status to penicillin; Z68.44 Body mass index [BMI] 60.0-69.9, adult; Z90.710 Acquired absence of both cervix and uterus
CPT/HCPCS: 99211

== ENCOUNTER → 2020-06-12 | Outpatient (CLI) | payer MEDICARE, OTHER ==
[2020-06-12 11:07] LABS: Basophils % (A) 1 %; Eosinophils # (A) 0.1 k/uL (0-0.7); Eosinophils % (A) 2 %; HCT 41.3 % (34.0-46.0); HGB 13.5 gm/dL (11.4-16.0); Lymphocytes # (A) 1.7 k/uL (1.0-4.8); Lymphocytes % (A) 47 %; MCH 31.1 pg (25.0-35.0); MCHC 32.8 g/dL (31.0-37.0); MCV 94.9 fL (80.0-100.0); Mean Platelet Volume 8.5; Monocytes # (A) 0.2 k/uL (0-1.0); Monocytes % (A) 6 %; Neutrophils # (A) 1.5 k/uL (1.3-7.7); Neutrophils % (A) 43 %; Platelet Count 220 k/uL (150-450); RBC 4.36 m/uL (3.80-5.40); WBC 3.5 k/uL (3.8-10.6)
[2020-06-12 11:19] LABS: ALT 27 U/L (4-34); AST 49 U/L (14-36); African American GFR (CKD) >90 (>60 ml/min/1.73 sqM); Alkaline Phosphatase 111 U/L (38-126); Anion Gap 6 mmol/L; Blood Urea Nitrogen 16 mg/dL (7-17); Calcium 9.4 mg/dL (8.4-10.2); Carbon Dioxide 31 mmol/L (22-30); Chloride 99 mmol/L (98-107); Glucose 93 mg/dL (74-99); Non-African American GFR(CKD) 84 (>60 ml/min/1.73 sqM); Potassium 4.3 mmol/L (3.5-5.1); Sodium 136 mmol/L (137-145); Total Bilirubin 0.6 mg/dL (0.2-1.3); Total Protein 7.4 g/dL (6.3-8.2)
== END | disposition home or self-care (01) ==
LOC: LABPAT 09:35
PROVIDERS: ATTEND Surgery Plastic and Reconstructive Surgery
DX: Z01.818 Encounter for other preprocedural examination (principal)
CPT/HCPCS: 36415; 80053; 85025; 93005

== ENCOUNTER 2020-06-26 07:12 | Day surgery (SDC) | payer MEDICARE, OTHER ==
[2020-06-20 16:00] VITALS: BMI 44.9
--- NOTE | 2020-06-26 05:43 | P.GSHP ---
History of Present Illness H&P Date: 06/26/20 CHIEF COMPLAINT: History of intra-abdominal adhesions HISTORY OF PRESENT ILLNESS: The patient is a 64-year-old female who presents with history of intra-abdominal adhesions from multiple prior surgeries including increasing abdominal pain. She now presents for diagnostic laparoscopy including lysis of adhesions. PAST MEDICAL HISTORY: Please see list. PAST SURGICAL HISTORY: Please see list. MEDICATIONS: Please see list. ALLERGIES: Please see list. SOCIAL HISTORY: No illicit drug use FAMILY HISTORY: No reports of Crohn disease or ulcerative colitis. REVIEW OF ORGAN SYSTEMS: CONSTITUTIONAL: No reports of fevers or chills. GI: Denies any blood in stools or constipation. PHYSICAL EXAM: VITAL SIGNS: Stable GENERAL: Well-developed pleasant and in no acute distress. HEENT: No scleral icterus. Extraocular movements grossly intact. Moist buccal mucosa. NECK: Supple without lymphadenopathy. CHEST: Unlabored respirations. Equal bilateral excursions. CARDIOVASCULAR: Regular rate and rhythm. Distal 2+ pulses. ABDOMEN: Soft, diffuse abdominal tenderness. No peritonitis. MUSCULOSKELETAL: No clubbing, cyanosis, or edema. ASSESSMENT: 1. Diffuse abdominal pain. 2. History of multiple abdominal surgeries. 3. Intra-abdominal adhesions. PLAN: 1. Robotic lysis of adhesions were described in detail including risk of injury to the intestine, need for further surgery, and open technique. 2. DVT prophylaxis. 3. Antibiotic prophylaxis. Past Medical History Past Medical History: CVA/TIA, Deep Vein Thrombosis (DVT), Eye Disorder, GERD/Reflux, Osteoarthritis (OA), Thyroid Disorder Additional Past Medical History / Comment(s): Bilateral carpal tunnel, neuropathy to all limbs/extremeties, migraines, HIATAL hernia, HX TIA X2, GLAUCOMA, DVT in 70's w/taking control. 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 History of Any Multi-Drug Resistant Organisms: None Reported Past Surgical History: Bariatric Surgery, Section, Cholecystectomy, Hernia Repair, Hysterectomy, Orthopedic Surgery Additional Past Surgical History / Comment(s): Temporal biopsy, EGD, CARPAL TUNNEL X4, LEFT LEG SURGERY, gastric sleeve 01/31/2014. Revision to Gastric RnY 07-27-18, left knee replacement 2019; Past Anesthesia/Blood Transfusion Reactions: No Reported Reaction Additional Past Anesthesia/Blood Transfusion Reaction / Comment(s): STATES "SPINAL WENT TOO HIGH" with labor. Never had blood transfusion and does not want any but plasma is ok. Smoking Status: Former smoker - Past Family History Mother Family Medical History: Hypertension Sister(s) Family Medical History: Cancer Additional Family Medical History / Comment(s): COLON Brother(s) Family Medical History: Cancer Additional Family Medical History / Comment(s): Prostate CA Medications and Allergies Home Medications Medication Instructions Recorded Confirmed Type Latanoprost Ophth [Xalatan 0.005%] 1 drops BOTH EYES HS 11/26/13 06/20/20 History Albuterol Sulfate [Proair Hfa] 2 puff INHALATION RT-Q4H PRN 01/25/14 06/20/20 History Butalbital/Aspirin/Caffeine 1 tab PO Q4H PRN 01/25/14 06/20/20 History [Fiorinal 50-325-40 MG] Cyclobenzaprine [Flexeril] 10 mg PO HS 02/02/18 06/20/20 History methIMAzole [Tapazole] 5 mg PO Q2D 02/02/18 06/20/20 History Desipramine HCl [Norpramin] 50 mg PO HS 05/18/18 06/20/20 History HYDROcodone/APAP 7.5-325MG [[place] 1 tab PO Q4H PRN 3 Days #18 tab 08/05/18 06/20/20 Rx 7.5-325] bisacodyL [Dulcolax] 5 mg PO DAILY PRN #10 tablet. 08/05/18 06/20/20 Rx methIMAzole [Tapazole] 2.5 mg PO Q2D 06/20/20 06/20/20 History Allergies Allergy/AdvReac Type Severity Reaction Status Date / Time aspirin Allergy Abdominal Verified 06/20/20 15:50 Pain Penicillins Allergy Itching Verified 06/20/20 15:50 environmental Allergy nose Uncoded 06/20/20 15:50 drainage, watery eyes, sneeze
[~2020-06-26 07:12] MED LIST changes: +Pre Op ABX Message 1 EACH MISC MISCELLANE ONE; -ceFAZolin 3 GM in SODIUM CHLORIDE 0.9% 100 ML IVPB ONE
[2020-06-26] MEDS ORDERED: LACTATED RINGERS 1,000 ML IV ONE ×2 (07:37→10:54)
[2020-06-26] MEDS ORDERED: TAMSULOSIN 0.4 MG CAP.ER.24H PO STA (07:40)
[2020-06-26] MEDS ORDERED: MIDAZOLAM 2 MG/2 ML VIAL IV PRN (07:40)
[2020-06-26] MEDS ORDERED: LACTATED RINGERS 1,000 ML IV SCH (07:40)
[2020-06-26] MEDS ORDERED: ACETAMINOPHEN TAB 500 MG TAB PO STA (07:40)
[2020-06-26] MEDS ORDERED: LIDOCAINE 1% (10MG/ML) FOR IV START INTRADERMA PRN (07:40)
[2020-06-26] MEDS ORDERED: GABAPENTIN 300 MG CAP PO STA (07:40)
[2020-06-26] MEDS ORDERED: DEXAMETHASONE SOD PHOSPHATE 4 MG/ML 1 ML VIAL IV ONE (07:40)
[2020-06-26] MEDS: ONDANSETRON 4 MG/2 ML VIAL IVP ONE ×2 (08:15→11:45)
[2020-06-26] MEDS ORDERED: HEPARIN SODIUM,PORCINE 5,000 UNIT/ML 1 ML VIAL SQ STA (08:17)
[2020-06-26] MEDS ORDERED: HEPARIN SODIUM,PORCINE 5,000 UNIT/ML 1 ML VIAL ONE (08:18)
[2020-06-26] MEDS ORDERED: HEPARIN SODIUM,PORCINE 5,000 UNIT/ML 1 ML VIAL SQ ONE (08:22)
[2020-06-26] MEDS ORDERED: ROCURONIUM 10 MG/ML (5 ML VIAL) IV ONE (09:20)
[2020-06-26] MEDS ORDERED: PROPOFOL 10 MG/ML 20 ML VIAL IV ONE (09:20)
[2020-06-26] MEDS ORDERED: GLYCOPYRROLATE 0.2 MG/ML 2 ML VIAL ONE (09:20)
[2020-06-26] MEDS ORDERED: fentaNYL (PF) 50 MCG/ML 2 ML AMP ONE ×2 (09:20→12:59)
[2020-06-26] MEDS ORDERED: MIDAZOLAM 2 MG/2 ML VIAL ONE (09:20)
[2020-06-26] MEDS ORDERED: LIDOCAINE 1% INJ 10MG/ML (20 ML MDV) ONE (09:20)
[2020-06-26] MEDS ORDERED: SUCCINYLCHOLINE CHLORIDE 100 MG/5 ML SYR IV ONE (09:20)
[2020-06-26] MEDS ORDERED: NEOSTIGMINE 1 MG/ML 10 ML VIAL ONE (09:20)
[2020-06-26] MEDS ORDERED: SODIUM CHLORIDE 0.9% 100 ML with ceFAZolin 2,000 MG IV ONE ×2 (09:35)
[2020-06-26] MEDS ORDERED: LIDOCAINE 1%-EPI 1:100,000 20 ML VIAL SQ ONE (09:46)
[2020-06-26 11:37] VITALS: TEMP 98.1
[2020-06-26] MEDS: HYDROmorphone 0.5 MG/0.5 ML SYRINGE IVP PRN ×4 (11:45→12:12)
[2020-06-26] MEDS ORDERED: KETOROLAC 15 MG/ML 1 ML VIAL IVP ONE (11:46)
--- NOTE | 2020-06-26 11:58 | P.OP ---
Date of Procedure: 06/26/20 Description of Procedure: SURGEON: MARTA SULLIVAN MD PREOPERATIVE DIAGNOSES: 1. Generalized moderate to severe abdominal pain 2. Personal history of peritoneal adhesions from multiple abdominal surgeries 3. Hypertensive heart disease 4. Hyperthyroidism 5. Chronic pain syndrome 6. Glaucoma 7. Morbid obesity due to excess calories, BMI 44.6 8. History of gastric bypass POSTOPERATIVE DIAGNOSES: 1. Severe intra-abdominal and interloop peritoneal adhesions 2. Generalized abdominal pain 3. Hypertensive heart disease 4. Hyperthyroidism 5. Chronic pain syndrome 6. Glaucoma 7. Morbid obesity due to excess calories, BMI 44.6 8. History of gastric bypass OPERATION: 1. Robotic-assisted da Duke Xi laparoscopic with extensive lysis of adhesions over 1.5 hr minutes. ESTIMATED BLOOD LOSS: 5 mL. SPECIMENS REMOVED: None. COMPLICATIONS: None. OPERATIVE FINDINGS: 1. No ventral hernias identified. 2. Severe pelvic adhesions of ileum to pelvis due to previous hysterectomy 3. Left upper quadrant small bowel to abdominal wall adhesions 4. Severe interloop adhesions involving distal jejunum and ileum lysed 5. Jejunojejunostomy and the Bradley defect without internal hernia INDICATIONS: The patient is a 64-year-old female who presents with moderate to severe generalized abdominal pain. She has history of multiple abdominal surgeries including peritoneal adhesions. Surgical intervention with diagnostic laparoscopy, lysis of adhesions were described. Informed consent was obtained. Robotic assisted laparoscopic approach was described. Benefits and risks of the procedure including but not limited to bleeding, infection, injury to the small bowel was described. Informed consent was obtained. DESCRIPTION OF PROCEDURE: Patient was brought to the operating room, placed in supine position. After general induction, the abdomen had been prepped and draped in standard sterile fashion. The robotic da Duke XI system was primed. After a timeout protocol was performed, the patient had been prepped and draped in standard sterile fashion. The robot was docked along the right lateral abdomen. The patient was repositioned in with right side up. Please note prior to docking of the robot; however, a 5 mm 0 degrees laparoscopic trocar entry was performed along the left upper quadrant. The abdomen was insufflated to 15 mmHg pressure which she tolerated well. Diagnostic laparoscopy was performed. Diffuse omental to abdominal adhesions are found along the midline, small bowel adhesions of the left upper quadrant, adhesions to the right pelvic wall were identified. Next, three 8 mm robotic ports were placed along the right lateral abdominal wall. The camera 8-mm port was maintained along mid-lateral abdomen. Please note that the ports were placed at least 10 to 15 cm away from the target anatomy. Instruments including graspers and vessel sealer were interchanged by the lpn medical assistant. I had sat at the console. No evidence of incisional hernia was identified. The rest of the abdomen was unremarkable for small bowel pathology. The small bowel from the michael limb to distal ileum was inspected. Abnormal adhesions to the jejunojejunostomy was identified and divided. No herniation of bowel was found along the Bradley defect or jejunojejunostomy mesenteric defect. Adhesions of gastrojejunal anastomosis to the anterior abdominal wall were released. At the right pelvic wall, mid to distal ileum were densely adherent and interloop adhesions carefully lysed sharply using scissors without enterotomies. Separately, michael limb adherent to the left upper quadrant was also lysed. Extensive lysis of adhesions over 1.5 hrs were performed. The small bowel was viable. The robot was undocked. All pneumoperitoneum instruments were evacuated from the abdominal cavity. The incisions were reapproximated using 4-0 Monocryl in an interrupted subcuticular fashion. Please note along the trocar sites, local anesthetic was placed as a field block prior to insertion of all instruments. Exofin was applied to the skin. At the end of the procedure needle, sponge, and instrument count had been verified correct by the surgical rn. The patient was transferred to postanesthesia care unit in stable condition. Plan - Discharge Summary Discharge Rx Participant: No New Discharge Prescriptions: New Acetaminophen Tab [Tylenol Tab] 1,000 mg PO Q6HR PRN #30 tablet PRN Reason: Pain Continue Latanoprost Ophth [Xalatan 0.005%] 1 drops BOTH EYES HS Albuterol Sulfate [Proair Hfa] 2 puff INHALATION RT-Q4H PRN PRN Reason: asthma Butalbital/Aspirin/Caffeine [Fiorinal 50-325-40 MG] 1 tab PO Q4H PRN PRN Reason: Migraine Headache methIMAzole [Tapazole] 5 mg PO Q2D Cyclobenzaprine [Flexeril] 10 mg PO HS Desipramine HCl [Norpramin] 50 mg PO HS bisacodyL [Dulcolax] 5 mg PO DAILY PRN #10 tablet. PRN Reason: Constipation HYDROcodone/APAP 7.5-325MG [[place] 7.5-325] 1 tab PO Q4H PRN 3 Days #18 tab PRN Reason: Pain methIMAzole [Tapazole] 2.5 mg PO Q2D Discharge Medication List Latanoprost Ophth [Xalatan 0.005%] 1 drops BOTH EYES HS 11/26/13 [History] Albuterol Sulfate [Proair Hfa] 2 puff INHALATION RT-Q4H PRN 01/25/14 [History] Butalbital/Aspirin/Caffeine [Fiorinal 50-325-40 MG] 1 tab PO Q4H PRN 01/25/14 [History] Cyclobenzaprine [Flexeril] 10 mg PO HS 02/02/18 [History] methIMAzole [Tapazole] 5 mg PO Q2D 02/02/18 [History] Desipramine HCl [Norpramin] 50 mg PO HS 05/18/18 [History] HYDROcodone/APAP 7.5-325MG [[place] 7.5-325] 1 tab PO Q4H PRN 3 Days #18 tab 08/05/18 [Rx] bisacodyL [Dulcolax] 5 mg PO DAILY PRN #10 tablet. 08/05/18 [Rx] methIMAzole [Tapazole] 2.5 mg PO Q2D 06/20/20 [History] Acetaminophen Tab [Tylenol Tab] 1,000 mg PO Q6HR PRN #30 tablet 06/26/20 [Rx] Follow up Appointment(s)/Referral(s): Marta Sullivan MD [STAFF PHYSICIAN] - 06/30/20 9:00 am Patient Instructions/Handouts: Lysis of Abdominal Adhesions (IP) Activity/Diet/Wound Care/Special Instructions: No lifting over 10 pounds in 2 weeks until July 10. May shower. No bath tub soaks for two weeks until July 10. Diet as tolerated. Use Tylenol scheduled for the next 24-48 hours for best pain relief. Use ice along incisions for today to prevent swelling. Discharge Disposition: HOME SELF-CARE
[2020-06-26] MEDS ORDERED: SIMETHICONE 80 MG CHEWABLE PO SCH (12:00)
[2020-06-26] MEDS ORDERED: diphenhydrAMINE 50 MG/ML 1 ML VIAL IVP ONE (12:12)
[2020-06-26 12:54] VITALS: RESP 20
[2020-06-26] MEDS ORDERED: fentaNYL (PF) 50 MCG/ML 2 ML AMP IVP ONE (13:05)
[2020-06-26 14:11] VITALS: BP 137/78; PULSE 99
== END 2020-06-26 14:04 | disposition home or self-care (01) ==
LOC: OR 07:12
PROVIDERS: ATTEND Surgery Plastic and Reconstructive Surgery
DX: K66.0 Peritoneal adhesions (postprocedural) (postinfection) (principal); K21.9 Gastro-esophageal reflux disease without esophagitis; I11.9 Hypertensive heart disease without heart failure; E05.90 Thyrotoxicosis, unspecified without thyrotoxic crisis or storm; M19.90 Unspecified osteoarthritis, unspecified site; G89.4 Chronic pain syndrome; H40.9 Unspecified glaucoma; E07.9 Disorder of thyroid, unspecified; G43.909 Migraine, unspecified, not intractable, without status migrainosus; Z86.11 Personal history of tuberculosis; E66.01 Morbid (severe) obesity due to excess calories; Z68.41 Body mass index [BMI] 40.0-44.9, adult; G62.9 Polyneuropathy, unspecified; Z86.73 Personal history of transient ischemic attack (TIA), and cerebral infarction without residual deficits; Z86.718 Personal history of other venous thrombosis and embolism; Z98.84 Bariatric surgery status; Z90.49 Acquired absence of other specified parts of digestive tract; Z98.891 History of uterine scar from previous surgery; Z90.710 Acquired absence of both cervix and uterus; Z98.890 Other specified postprocedural states; Z96.652 Presence of left artificial knee joint; Z87.891 Personal history of nicotine dependence; Z82.49 Family history of ischemic heart disease and other diseases of the circulatory system; Z80.0 Family history of malignant neoplasm of digestive organs; Z80.42 Family history of malignant neoplasm of prostate; Z79.891 Long term (current) use of opiate analgesic; Z88.6 Allergy status to analgesic agent; Z88.0 Allergy status to penicillin; Z91.048 Other nonmedicinal substance allergy status

== ENCOUNTER → 2020-06-30 | Outpatient (CLI) | payer MEDICARE, OTHER ==
--- NOTE | 2020-06-30 09:27 | P.PN ---
Progress Note - Text Progress Note Date: 06/30/20 To Whom It May Concern: Chelsey Mar is under my general surgical care. She may return to work without restrictions 07/10/2020 Regards, Marta Sullivan MD
--- NOTE | 2020-06-30 09:28 | P.PN ---
Subjective Progress Note Date: 06/30/20 She is postoperative day 4 from lysis of adhesions. She did have mild oozing from her inferior incision that has improved. No bleeding on exam today. Mild ecchymosis 3 cm along the inferior border of her right lateral incision. Otherwise, pre-existing abdominal pain moderate improvement. Recommend 2 weeks for complete recovery prior to return to work. Separately, recommend evaluation for panniculectomy. Dietary surveillance and counseling patient does report using a food journal with results of weight loss.
[2020-06-30 10:28] VITALS: BP 155/83; PULSE 82; TEMP 98; BMI 44.6
== END ==
LOC: BARWHC3 08:58
PROVIDERS: ATTEND Surgery Plastic and Reconstructive Surgery
DX: E66.01 Morbid (severe) obesity due to excess calories (principal); Z98.84 Bariatric surgery status; Z87.891 Personal history of nicotine dependence
CPT/HCPCS: 99211

== ENCOUNTER 2020-07-10 07:12 | Day surgery (SDC) | payer MEDICARE, OTHER ==
[2020-07-07 10:41] VITALS: BMI 43.7
[~2020-07-10 07:12] MED LIST changes: +LACTATED RINGERS 1,000 ML IV SCH; -Pre Op ABX Message 1 EACH MISC MISCELLANE ONE
[2020-07-10 07:34] VITALS: TEMP 97.9
--- NOTE | 2020-07-10 07:38 | P.GSHP ---
History of Present Illness H&P Date: 07/10/20 CHIEF COMPLAINT: GERD HISTORY OF PRESENT ILLNESS: The patient is a 64-year-old female who presents reports gastroesophageal reflux disease. Upper endoscopy was offered for further evaluation and management. PAST MEDICAL HISTORY: Please see list. PAST SURGICAL HISTORY: Please see list. MEDICATIONS: Please see list. ALLERGIES: Please see list. SOCIAL HISTORY: No illicit drug use FAMILY HISTORY: No reports of Crohn disease or ulcerative colitis. REVIEW OF ORGAN SYSTEMS: CONSTITUTIONAL: No reports of fevers or chills. GI: Denies any blood in stools or constipation. PHYSICAL EXAM: VITAL SIGNS: Stable GENERAL: Well-developed and pleasant in no acute distress. HEENT: No scleral icterus. Extraocular movements grossly intact. Moist buccal mucosa. NECK: Supple without lymphadenopathy. CHEST: Unlabored respirations. Equal bilateral excursions. CARDIOVASCULAR: Regular rate and rhythm. Distal 2+ pulses. ABDOMEN: Soft, nondistended. MUSCULOSKELETAL: No clubbing, cyanosis, or edema. ASSESSMENT: 1. Gastroesophageal reflux disease PLAN: 1. Recommend proceeding with an upper endoscopy Past Medical History Past Medical History: CVA/TIA, Deep Vein Thrombosis (DVT), Eye Disorder, Osteoarthritis (OA), Thyroid Disorder Additional Past Medical History / Comment(s): Bilateral carpal tunnel, neuropathy to all limbs/extremeties, migraines, HX TIA X2 in 2010, GLAUCOMA, DVT in 70's w/taking control. 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 abdominal pain, "knot in top of my chest when swallowing food" History of Any Multi-Drug Resistant Organisms: None Reported Past Surgical History: Bariatric Surgery, Section, Cholecystectomy, Hernia Repair, Hysterectomy, Joint Replacement, Orthopedic Surgery Additional Past Surgical History / Comment(s): Temporal biopsy, EGD, CARPAL TUNNEL rt hand, LEFT LEG SURGERY, gastric sleeve 01/31/2014. Revision to Gastric RnY 4--19, left knee replacement Past Anesthesia/Blood Transfusion Reactions: No Reported Reaction Additional Past Anesthesia/Blood Transfusion Reaction / Comment(s): STATES "SPINAL WENT TOO HIGH" with labor. Never had blood transfusion and does not want any but plasma is ok. Smoking Status: Former smoker - Past Family History Mother Family Medical History: Hypertension Sister(s) Family Medical History: Cancer Additional Family Medical History / Comment(s): COLON Brother(s) Family Medical History: Cancer Additional Family Medical History / Comment(s): Prostate CA Medications and Allergies Home Medications Medication Instructions Recorded Confirmed Type Latanoprost Ophth [Xalatan 0.005%] 1 drops BOTH EYES HS 11/26/13 07/07/20 History Albuterol Sulfate [Proair Hfa] 2 puff INHALATION RT-Q4H PRN 01/25/14 07/07/20 History Butalbital/Aspirin/Caffeine 1 tab PO Q4H PRN 01/25/14 07/07/20 History [Fiorinal 50-325-40 MG] Cyclobenzaprine [Flexeril] 10 mg PO HS 02/02/18 07/07/20 History methIMAzole [Tapazole] 5 mg PO Q2D 02/02/18 07/10/20 History Desipramine HCl [Norpramin] 50 mg PO HS 05/18/18 07/07/20 History bisacodyL [Dulcolax] 5 mg PO DAILY PRN #10 tablet. 08/05/18 07/07/20 Rx methIMAzole [Tapazole] 2.5 mg PO Q2D 06/20/20 07/07/20 History Acetaminophen Tab [Tylenol Tab] 1,000 mg PO Q6HR PRN #30 tablet 06/26/20 0 07/07/20 Rx HYDROcodone/APAP 7.5-325MG [[place] 1 tab PO QID PRN 07/07/20 07/07/20 History 7.5-325] Multivitamins, Thera [Multivitamin 1 tab PO DAILY 07/07/20 07/07/20 History (formulary)] Allergies Allergy/AdvReac Type Severity Reaction Status Date / Time aspirin Allergy Abdominal Verified 07/10/20 07:35 Pain Penicillins Allergy Itching Verified 07/10/20 07:35 environmental Allergy nose Uncoded 07/10/20 07:35 drainage, watery eyes, sneeze Surgical - Exam Vital Signs Temp Pulse Resp BP Pulse Ox 97.9 F 75 16 129/72 100 07/10/20 07:33 07/10/20 07:33 07/10/20 07:33 07/10/20 07:33 07/10/20 07:33
[2020-07-10] MEDS ORDERED: LIDOCAINE 1% (10MG/ML) FOR IV START INTRADERMA ONE (07:44)
[2020-07-10] MEDS ORDERED: LIDOCAINE 1% INJ 10MG/ML (20 ML MDV) ONE (07:52)
[2020-07-10] MEDS ORDERED: PROPOFOL 10 MG/ML 20 ML VIAL IV ONE (07:52)
--- NOTE | 2020-07-10 07:55 | P.HPADDEND ---
H&P Addendum H&P Addendum Date: 07/10/20 Patient reports new right lower quadrant abdominal pain sharp in nature that radiates along the left upper abdomen. May need additional diagnostic studies CT of the abdomen and pelvis with history of recent surgery.
--- NOTE | 2020-07-10 08:03 | P.PCN ---
Date of Procedure: 07/10/20 Description of Procedure: PREOPERATIVE DIAGNOSES: 1. Gastroesophageal reflux disease 2. Epigastric abdominal pain. 3. History of gastric bypass. POSTOPERATIVE DIAGNOSES: 1. Gastroesophageal reflux disease 2. Hiatal hernia 3. History of gastric bypass. PROCEDURE PERFORMED: Esophagogastrojejunoscopy. SURGEON: Marta Sullivan MD ANESTHESIA: MAC. INDICATIONS: The patient is a 64-year-old female with prior history of Stevie-en-Y gastric bypass approximately 5 years ago. She comes in with new epigastric abdominal pain with history of gastroesophageal reflux disease. With his history of Stevie-en-Y gastric bypass, upper endoscopy was offered for further evaluation and management. DESCRIPTION: Patient was brought to the endoscopy suite and laid in the left lateral decubitus position. After adequate IV sedation, a bite block was placed. An Olympus gastroscope was passed along the posterior oropharynx down to the distal esophagus where the squamocolumnar junction was found at approximately 37 cm from the incisors. The anastomosis was found at 42 cm, consistent with approximately 5 cm gastric pouch. The scope was advanced 60 cm from the incisors. No evidence of foreign body was found. No evidence of active gastrojejunal ulcerations were encountered. The GI tract was desufflated. The patient tolerated the procedure well. FINDINGS: 1. No acute gastrojejunal ulceration. 2. No foreign body found along the anastomosis. 3. Diaphragmatic hiatal hernia, 2 cm sliding-type PLAN: 1. Recommend upper endoscopy as needed. 2. May benefit from repair of diaphragmatic hiatal hernia Plan - Discharge Summary New Discharge Prescriptions: Continue Latanoprost Ophth [Xalatan 0.005%] 1 drops BOTH EYES HS Albuterol Sulfate [Proair Hfa] 2 puff INHALATION RT-Q4H PRN PRN Reason: asthma Butalbital/Aspirin/Caffeine [Fiorinal 50-325-40 MG] 1 tab PO Q4H PRN PRN Reason: Migraine Headache methIMAzole [Tapazole] 5 mg PO Q2D Cyclobenzaprine [Flexeril] 10 mg PO HS Desipramine HCl [Norpramin] 50 mg PO HS bisacodyL [Dulcolax] 5 mg PO DAILY PRN #10 tablet. PRN Reason: Constipation methIMAzole [Tapazole] 2.5 mg PO Q2D Acetaminophen Tab [Tylenol] 1,000 mg PO Q6HR PRN #30 tablet PRN Reason: Pain HYDROcodone/APAP 7.5-325MG [[place] 7.5-325] 1 tab PO QID PRN PRN Reason: Pain Multivitamins, Thera [Multivitamin (formulary)] 1 tab PO DAILY Discharge Medication List Latanoprost Ophth [Xalatan 0.005%] 1 drops BOTH EYES HS 11/26/13 [History] Albuterol Sulfate [Proair Hfa] 2 puff INHALATION RT-Q4H PRN 01/25/14 [History] Butalbital/Aspirin/Caffeine [Fiorinal 50-325-40 MG] 1 tab PO Q4H PRN 01/25/14 [History] Cyclobenzaprine [Flexeril] 10 mg PO HS 02/02/18 [History] methIMAzole [Tapazole] 5 mg PO Q2D 02/02/18 [History] Desipramine HCl [Norpramin] 50 mg PO HS 05/18/18 [History] bisacodyL [Dulcolax] 5 mg PO DAILY PRN #10 tablet. 08/05/18 [Rx] methIMAzole [Tapazole] 2.5 mg PO Q2D 06/20/20 [History] Acetaminophen Tab [Tylenol] 1,000 mg PO Q6HR PRN #30 tablet 06/26/20 [Rx] HYDROcodone/APAP 7.5-325MG [[place] 7.5-325] 1 tab PO QID PRN 07/07/20 [History] Multivitamins, Thera [Multivitamin (formulary)] 1 tab PO DAILY 07/07/20 [History] Follow up [facility]ment(s[facility] [place] [facility] - [facility]20 Patient Instructions/Handouts: Hiatal Hernia (ED), Gastroesophageal Reflux Disease (DC) Discharge Disposition: HOME SELF-CARE
[2020-07-10] MEDS ORDERED: IOPAMIDOL CONTRAST (ORAL USE) VIAL PO PRN (08:15)
--- NOTE | 2020-07-10 08:18 | P.PN ---
Progress Note - Text Progress Note Date: 07/10/20 Patient also has worsening pain and right lower quadrant sharp stabbing in nature including liquids. We'll obtain a stat CT of the abdomen and pelvis regarding right lower quadrant abdominal pain and patient gastric bypass. Additionally will order CBC and BMP.
[2020-07-10 08:31] VITALS: BP 117/73; PULSE 71; RESP 20
--- NOTE | 2020-07-10 09:38 | CT ---
EXAMINATION TYPE: CT abdomen pelvis w con DATE OF EXAM: 07/10/2020 HISTORY: Rt lower abd pain, history of gastric bypass CT DLP: 2225.5mGycm Automated Exposure Control for Dose Reduction was Utilized. CONTRAST: CT scan of the abdomen and pelvis is performed with IV Contrast, patient injected with 100 mL of Isov ue 300. COMPARISON: CT abdomen and pelvis March 15, 2015 FINDINGS: LUNG BASES: No significant abnormality is appreciated. LIVER/GB: Cholecystectomy clips are redemonstrated. PANCREAS: New [id number] generalized fat replaced atrophy. SPLEEN: No significant abnormality is seen. ADRENALS: Low dense thickening to both adrenal glands consistent with benign lipid rich hyperplasia r edemonstrated. KIDNEYS: Symmetric cortical medullary uptake and excretion with no concerning renal mass or hydroneph rosis seen bilaterally. BOWEL: Oral contrast only reaches left-sided jejunal loops. Surgical changes from gastric bypass proc edure now present. No suspicious small or large bowel dilatation. Normal appearing appendix from base of cecum. Sigmoid colonic diverticula. No convincing CT evidence for acute diverticulitis. UTERUS/ADNEXA: Uterus surgically absent. Small amount free fluid in pelvis is nonspecific. LYMPH NODES: No greater than 1cm abdominal or pelvic lymph nodes are appreciated. OSSEOUS STRUCTURES: Postsurgical change L4-L5 level now present. OTHER: No significant additional abnormality is seen. IMPRESSION: Mild lower abdominal and pelvic ascites of uncertain etiology. No bowel obstruction. Dist al colonic diverticula without convincing CT evidence for acute diverticulitis.
[2020-07-10 09:43] LABS: Basophils % (A) 1 %; Eosinophils # (A) 0.2 k/uL (0-0.7); Eosinophils % (A) 6 %; HCT 38.3 % (34.0-46.0); HGB 12.7 gm/dL (11.4-16.0); Lymphocytes # (A) 1.5 k/uL (1.0-4.8); Lymphocytes % (A) 44 %; MCH 31.1 pg (25.0-35.0); MCHC 33.1 g/dL (31.0-37.0); MCV 93.8 fL (80.0-100.0); Mean Platelet Volume 8.7; Monocytes # (A) 0.2 k/uL (0-1.0); Monocytes % (A) 5 %; Neutrophils # (A) 1.5 k/uL (1.3-7.7); Neutrophils % (A) 42 %; Platelet Count 204 k/uL (150-450); RBC 4.08 m/uL (3.80-5.40); RDW 12.9 % (11.5-15.5); WBC 3.5 k/uL (3.8-10.6)
[2020-07-10 09:58] LABS: African American GFR (CKD) >90 (>60 ml/min/1.73 sqM); Anion Gap 4 mmol/L; Blood Urea Nitrogen 11 mg/dL (7-17); Carbon Dioxide 30 mmol/L (22-30); Chloride 100 mmol/L (98-107); Glucose 93 mg/dL (74-99); Non-African American GFR(CKD) 88 (>60 ml/min/1.73 sqM); Potassium 4.3 mmol/L (3.5-5.1); Sodium 134 mmol/L (137-145)
--- NOTE | 2020-07-10 10:44 | P.PN ---
Subjective Progress Note Date: 07/10/20 CHIEF COMPLAINT: Lower quadrant abdominal pain HISTORY OF PRESENT ILLNESS: The patient is a 64-year-old female who presented initially with epigastric abdominal pain including history of gastric ulcers in the past. Upper endoscopy was unremarkable for acute ulcers. During further assessment, patient reports acute onset right lower quadrant abdominal pain moderate to severe in intensity. Immediate CT of the abdomen and pelvis was obtained. ROS: No reports of nausea and vomiting. No fevers or chills. No new chest pain. No productive sputum PHYSICAL EXAM: VITAL SIGNS: Reviewed CONSTITUTIONAL: Well developed and in no acute distress. EYES: Conjuctivae without sclera icterus. Extraocular movements grossly intact. HEAD, EARS, NOSE, THROAT: Moist buccal mucosa. Head is atraumatic, no rmocephalic. Hears conversational speech. No nasal drainage. NECK: Supple. No thyroidomegaly. RESPIRATORY: Non-labored respirations and equal bilateral excursions. CARDIOVASCULAR: Palpable 2+ radial pulses. Regular rate. Regular rhythm. ABDOMEN: Mild tenderness right lower quadrant. No peritonitis. MUSCULOSKELETAL: No gross deformity of the lower extremities noted. No clubbing. No cyanosis. SKIN: Good skin turgor. Well perfused. NEUROLOGIC: Cranial nerves II through XII grossly intact. No focal or lateralizing signs. PSYCH: Appropriate affect. Alert and oriented to person, place and time. CLINICAL LABS: White blood cell count low at 3.5. BMP within normal limits. No leukocytosis. STUDIES: CT of the abdomen and pelvis independently reviewed demonstrating no evidence of abscess or inflammatory changes or diverticulitis. Moderate stool burden identified throughout the colon. This my independent interpretation. REPORT: Upper endoscopy report consistent with hiatal hernia. ASSESSMENT: 1. Hiatal hernia 2. Acute right lower quadrant abdominal pain PLAN: 1. CT remarkable primarily for moderate stool burden. Recommend stool softener. 2. Follow-up in the office in 3 days. Objective - Vital Signs Vital signs: Vital Signs Temp 97.9 F 07/10/20 07:33 Pulse 71 07/10/20 08:30 Resp 20 07/10/20 08:30 BP 117/73 07/10/20 08:30 Pulse Ox 99 07/10/20 08:30 Intake & Output 07/09/20 07/10/20 07/10/20 18:59 06:59 18:59 Intake Total 200 Balance 200 Weight 116.1 kg Intake: IV 200 - Labs CBC & Chem 7: 07/10/20 09:37 07/10/20 09:37 Labs: Abnormal Lab Results - Last 24 Hours (Table) 07/10/20 07/10/20 Range/Units 09:37 09:37 WBC 3.5 L (3.8-10.6) k/uL Sodium 134 L (137-145) mmol/L
== END 2020-07-10 11:09 | disposition home or self-care (01) ==
LOC: ORWHC2ENDO 07:12
PROVIDERS: ATTEND Surgery Plastic and Reconstructive Surgery
DX: K21.9 Gastro-esophageal reflux disease without esophagitis (principal); K44.9 Diaphragmatic hernia without obstruction or gangrene; E03.9 Hypothyroidism, unspecified; M19.90 Unspecified osteoarthritis, unspecified site; R18.8 Other ascites; K57.30 Diverticulosis of large intestine without perforation or abscess without bleeding; Z98.84 Bariatric surgery status; Z86.73 Personal history of transient ischemic attack (TIA), and cerebral infarction without residual deficits; Z86.718 Personal history of other venous thrombosis and embolism; Z80.0 Family history of malignant neoplasm of digestive organs; Z82.49 Family history of ischemic heart disease and other diseases of the circulatory system; Z96.652 Presence of left artificial knee joint; Z87.891 Personal history of nicotine dependence; Z79.899 Other long term (current) drug therapy; Z88.0 Allergy status to penicillin; Z87.11 Personal history of peptic ulcer disease
CPT/HCPCS: 80048; 85025; 74177; 43235; J2001; J2704; Q9967

== ENCOUNTER → 2020-07-12 | Outpatient (CLI) | payer MEDICARE, OTHER ==
--- NOTE | 2020-07-12 16:30 | P.PN ---
Subjective Progress Note Date: 07/12/20 DATE OF SERVICE: 07/12/2020 CHIEF COMPLAINT: Epigastric abdominal pain HISTORY OF PRESENT ILLNESS: Chelsey Mar is a 64-year-old female status post gastric bypass, 08/03/2018. She is almost 2 years out. She is status post lysis of adhesions 06/26/2020. She is 2 weeks out. She reports moderate soreness along right lower quadrant incision. She is also status post upper endoscopy for severe epigastric abdominal pain which is new. At her height of 5 feet 4 inches her ideal body weight is 144 pounds. Her highest weight was 365 pounds. Today she comes in 259 pounds unchanged from 2 weeks ago. She has maintained 105 pound weight loss lifetime. Percent lifetime excess weight loss is 48 %. Body mass index is reduced from 62.8 down to 44.6 PHYSICAL EXAM: VITAL SIGNS: 5 feet 4 inches; 259 pounds. Body mass index 44.6 Vital Signs Temp 97.9 F 07/12/20 16:41 Pulse 90 07/12/20 16:41 Resp 18 07/12/20 16:41 BP 145/84 07/12/20 16:41 Pulse Ox ABDOMEN: No palpable incisional hernia right lower quadrant. Mild tenderness. No peritonitis. GENERAL: Well developed female in no acute distress. MUSCULOSKELETAL: No clubbing, cyanosis. HEENT: No scleral icterus. Extraocular movements are intact. Head is atraumatic, normocephalic. Hears conversational speech. NECK: Nontender. No lymphadenopathy. CHEST: Nonlabored respirations. Equal bilateral excursions. CARDIOVASCULAR: Regular rate. Regular rhythm. 2+ radial pulses NEURO: No focal or lateralizing signs. Cranial nerves II to XII grossly intact. PSYCH: Appropriate affect. Alert and oriented to person, place and time. SKIN: Well perfused. Good skin turgor. Has panniculitis. EGD FINDINGS: 1. No acute gastrojejunal ulceration. 2. No foreign body found along the anastomosis. 3. Diaphragmatic hiatal hernia, 2 cm sliding-type ASSESSMENT: 1. Morbid obesity due to excess calories. 2. Body mass index reduced from 61.2 down to 44.6 3. Status post sleeve to gastric bypass conversion 4. Bilateral lower extremity edema 5. Hypothyroidism 6. Vitamin D deficiency 7. Panniculitis 8. Secondary hyperparathyroidism 9. Right lower quadrant abdominal pain. 10. Peritoneal adhesions. 11. Hiatal hernia 12. Epigastric abdominal pain PLAN: 1. She comes in with new complaints of epigastric abdominal pain. She has completed an upper endoscopy with findings of recurrent hiatal hernia. 2. Recommend gas-x and omeprazole for new epigastric abdominal pain due to hiatal hernia. 3. Recommend extended time off prior to return to work.
--- NOTE | 2020-07-12 16:32 | P.PN ---
Progress Note - Text Progress Note Date: 07/12/20 To whom it may concern: Chelsey Mar is under my surgical care. She could not return to work earlier and will need time off work until return on July 17, 2020. Regards, Marta Sullivan MD, FACS
[2020-07-12 16:43] VITALS: BP 145/84; PULSE 90; RESP 18; TEMP 97.9; BMI 44.6
== END ==
LOC: BARWHC3 14:20
PROVIDERS: ATTEND Surgery Plastic and Reconstructive Surgery
DX: E66.01 Morbid (severe) obesity due to excess calories (principal); R60.0 Localized edema; E03.9 Hypothyroidism, unspecified; E55.9 Vitamin D deficiency, unspecified; M79.3 Panniculitis, unspecified; N25.81 Secondary hyperparathyroidism of renal origin; K66.0 Peritoneal adhesions (postprocedural) (postinfection); K44.9 Diaphragmatic hernia without obstruction or gangrene; Z98.84 Bariatric surgery status; Z68.41 Body mass index [BMI] 40.0-44.9, adult; Z79.899 Other long term (current) drug therapy; Z87.891 Personal history of nicotine dependence
CPT/HCPCS: 99211

== ENCOUNTER → 2020-07-12 | Outpatient (CLI) | payer MEDICARE, OTHER ==
--- NOTE | 2020-07-14 08:05 | BD ---
EXAMINATION TYPE: Axial Bone Density DATE OF EXAM: 07/12/2020 COMPARISON: 05/15/2018 CLINICAL HISTORY: Height: 62.7 IN Weight: 256 LBS FRAX RISK QUESTIONS: Secondary Osteoporosis: 2. Hyperthyroidism: YES EXAMINATION TYPE: Axial Bone Density DATE OF EXAM: 07/12/2020 COMPARISON: NONE CLINICAL HISTORY: Height: 62.7 IN Weight: 256 LBS RISK FACTORS HISTORY OF: Surgery to Spine:L-SPINE 2015 Active: YES Postmenopausal woman: PARTIAL HYST AGE 32; OVARIES OUT 2003 MEDICATIONS: THYROID MEDS, HYDROCODONE, MIGRAINE MEDS, FLEXERIL, VIT D, CALCIUM, Thyroid Medications: THYROID How Lon YEARS EXAM MEASUREMENTS: Bone mineral densitometry was performed using the [employer] System. Bone mineral density about the R hip (g/cm2): 1.132 Bone mineral density about the L hip (g/cm2): 1.096 T Score values are as follows: -----R Neck: 0.7 -----L Neck: 0.4 -----R Total: 1.0 -----L Total: 1.0 Bone mineral density : DECREASED -0.8 SINCE 05/15/2018 Bone mineral density about the L Wrist (g/cm2): 0.644 T Score values are as follows: -----Dist. R+U: 0.3 -----Prox. R+U: -0.1 -----Radius total: -0.5 Bone mineral density : DECREASED -3.4 SINCE 05/15/2018 IMPRESSION: Normal (Values between +1 and -1 indicate normal bone mass). Consider repeating this study in 5 years or sooner if there is some new clinical indication.
--- NOTE | 2020-07-17 09:59 | MM ---
Reason for exam: screening (asymptomatic). Last mammogram was performed 1 year and 2 months ago. History: Patient is postmenopausal. Physical Findings: A clinical breast exam by your physician is recommended on an annual basis and results should be correlated with mammographic findings. MG Screening Mammo w CAD Bilateral CC and MLO view(s) were taken. XCCL view(s) were taken of the left breast. Prior study comparison: May 21, 2019, bilateral MG screening mammo w CAD. May 15, 2018, bilateral MG screening mammo w CAD. The breast tissue is heterogeneously dense. This may lower the sensitivity of mammography. Scattered benign round calcifications. No significant changes when compared with prior studies. ASSESSMENT: Benign, BI-RAD 2 RECOMMENDATION: Routine screening mammogram of both breasts in 1 year.
== END ==
LOC: RADMAMWWP 12:55
PROVIDERS: ATTEND Family Medicine
DX: Z12.31 Encounter for screening mammogram for malignant neoplasm of breast (principal); M81.8 Other osteoporosis without current pathological fracture; R92.2 Inconclusive mammogram; R92.0 Mammographic microcalcification found on diagnostic imaging of breast
CPT/HCPCS: 77067; 77080

== ENCOUNTER → 2020-08-17 | Outpatient (CLI) | payer MEDICARE, OTHER ==
--- NOTE | 2020-08-17 12:10 | XR ---
EXAMINATION TYPE: XR forearm RT, XR wrist complete RT DATE OF EXAM: 08/17/2020 CLINICAL HISTORY: Wrist fracture per order. Distal swelling, history of carpal tunnel. TECHNIQUE: Two views of the right forearm are obtained. 4 views right wrist. COMPARISON: Prior right wrist x-ray August 17, 2014.. FINDINGS: There is no acute fracture or dislocation seen in the right radius or ulna. Tiny spur at t he olecranon and distal triceps at the attachment. The overlying soft tissue appears within normal l imits. Images of right wrist redemonstrate stable widening of the scapholunate space measuring near 4 mm. Th ere is marked narrowing of the luminal triquetral space redemonstrated. Persistent moderate triscaphe joint space narrowing and sclerosis. No acute fracture is evident. Mild focal soft tissue swelling i s unchanged. IMPRESSION: As above.
== END | disposition home or self-care (01) ==
LOC: RADXRMAIN 11:25
PROVIDERS: ATTEND Psychiatry & Neurology Pain Medicine
DX: M77.8 Other enthesopathies, not elsewhere classified (principal); M25.811 Other specified joint disorders, right shoulder; M79.89 Other specified soft tissue disorders

== ENCOUNTER → 2020-12-18 | Outpatient (CLI) | payer MEDICARE, OTHER ==
[2020-12-18 13:30] LABS: African American GFR (CKD) 77.8 (60.0-200.0); Albumin/Globulin Ratio 1.54 (1.60-3.17); Anion Gap 10.5 mmol/L (4.00-12.00); BUN/Creat Ratio 21.11 Ratio (12.00-20.00); Calcium 9.2 mg/dL (8.7-10.3); Carbon Dioxide 26.5 mmol/L (21.6-31.8); Globulin 2.6 g/dL (1.6-3.3); Non-African American GFR(CKD) 67.1 (60.0-200.0); Potassium 4.4 mmol/L (3.5-5.5); Total Bilirubin 0.4 mg/dL (0.3-1.2); Total Protein 6.6 g/dL (6.2-8.2)
[2020-12-18 13:55] LABS: T4, Free (Free Thyroxine) 0.7 ng/dL (0.80-1.80)
== END | disposition home or self-care (01) ==
LOC: LABWHC1 07:05
PROVIDERS: ATTEND Internal Medicine Endocrinology, Diabetes & Metabolism
DX: E05.90 Thyrotoxicosis, unspecified without thyrotoxic crisis or storm (principal)
CPT/HCPCS: 36415; 80053; 84439; 84443; 84480

== ENCOUNTER → 2020-12-28 | Outpatient (CLI) | payer MEDICARE, OTHER ==
[2020-12-28 09:09] LABS: Partial Thromboplastin Time 22.4 sec (22.0-30.0); Prothrombin Time 10.3 sec (9.0-12.0)
[2020-12-28 11:06] LABS: HCT 38.6 % (37.2-46.3); HGB 12.5 g/dL (12.0-15.0); MCH 30.3 pg (27.0-32.0); MCHC 32.4 g/dL (32.0-37.0); MCV 93.5 fL (80.0-97.0); Platelet Count 233 X 10*3/uL (140-440); RBC 4.13 X 10*6/uL (4.10-5.20); RDW 13.2 % (11.5-14.5); WBC 5.17 X 10*3/uL (4.50-10.00)
[2020-12-28 14:21] LABS: Hemoglobin A1C 5.7 % (4.0-6.0)
[2020-12-28 14:56] LABS: % Iron Saturation 24.47 (12.00-45.00); ALT 19 U/L (8-44); AST 24 U/L (13-35); African American GFR (CKD) 89.7 (60.0-200.0); Albumin/Globulin Ratio 1.39 (1.60-3.17); Alkaline Phosphatase 150 U/L (41-126); Carbon Dioxide 28.7 mmol/L (21.6-31.8); Chloride 103 mmol/L (96-109); Chol/HDL Ratio 2.09; Cholesterol 163 mg/dL (0-200); Globulin 2.8 g/dL (1.6-3.3); Glucose 57 mg/dL (70-110); Iron 69 ug/dL (50-170); Magnesium 1.8 mg/dL (1.5-2.4); Non-African American GFR(CKD) 77.4 (60.0-200.0); Potassium 3.9 mmol/L (3.5-5.5); Sodium 140 mmol/L (135-145); Total Bilirubin 0.3 mg/dL (0.2-1.2); Total Iron Binding Capacity 282 ug/dL (228-460); Total Protein 6.7 g/dL (6.2-8.2)
[2020-12-28 17:58] LABS: Ferritin 182.3 ng/mL (10.0-291.0)
[2020-12-28 18:40] LABS: Folate, Serum >24.0 ng/mL
[2020-12-29 13:54] LABS: Zinc, Serum 66 ug/dL (60-130)
== END | disposition home or self-care (01) ==
LOC: LABWHC1 07:57
PROVIDERS: ATTEND Surgery Plastic and Reconstructive Surgery
DX: E66.01 Morbid (severe) obesity due to excess calories (principal); E89.1 Postprocedural hypoinsulinemia; D50.8 Other iron deficiency anemias; E44.0 Moderate protein-calorie malnutrition; E55.9 Vitamin D deficiency, unspecified; K74.1 Hepatic sclerosis; N19 Unspecified kidney failure; K50.90 Crohn's disease, unspecified, without complications; Z98.84 Bariatric surgery status
CPT/HCPCS: 36415; 80053; 80061; 82306; 82525; 82607; 82728; 82746; 83036; 83540; 83550; 83735; 83970; 84100; 84134; 84255; 84425; 84443; 84590; 84630; 85027; 85610; 85730

== ENCOUNTER → 2021-02-21 | Outpatient (CLI) | payer MEDICARE, OTHER ==
[2021-02-22 01:05] LABS: T4, Free (Free Thyroxine) 0.97 ng/dL (0.800-1.800)
== END | disposition home or self-care (01) ==
LOC: LABWHC1 12:30
PROVIDERS: ATTEND Internal Medicine Endocrinology, Diabetes & Metabolism
DX: E05.20 Thyrotoxicosis with toxic multinodular goiter without thyrotoxic crisis or storm (principal)
CPT/HCPCS: 36415; 84439; 84443; 84480

== ENCOUNTER → 2021-05-30 | Outpatient (CLI) | payer MEDICARE, OTHER ==
[2021-05-30 12:52] VITALS: BP 141/84; PULSE 84; TEMP 98.2; BMI 47.2
--- NOTE | 2021-05-30 12:55 | P.HPBAR ---
Bariatric H&P - History & Physicial H&P Date: 05/30/21 History & Physicial: Visit/CC: Patient initial contact: Initial weight: 106.623 kg Initial weight in pounds: Height: Initial BMI: Last weight: Current weight: Current weight in pounds: Current BMI: [place] body weight (based on NIH guidelines): Excess body weight loss: The patient is a 65 year-old F who presents for Bariatric Assessment. DATE OF SERVICE: 05/30/2021 CHIEF COMPLAINT: Status post sleeve gastrectomy HISTORY OF PRESENT ILLNESS: Chelsey Mar is a 65-year-old female status post gastric bypass, 08/03/2018. She is 3 years out. She gained 45 pounds since 2019 from steroid injections. She reports lower abdominal pain with prior history of peritoneal adhesions. She gets multiple steroid injections in the arms, legs, back, and knee. She goes to [facility] for swelling of her hands and she is having mini strokes. She had to move by herself. She is now in a new house. She has lower abdominal pain over 2 to 3 months. She is looking for a pain specialist. She sees Dr. Vazquez and Jose. At her height of 5 feet 4 inches her ideal body weight is 144 pounds. Her highest weight was 365 pounds. Today she comes in 274 pounds from 260 pounds, 5 months ago. She has gained 14 pounds in 5 months. She has maintained 91 pound weight loss lifetime. Percent lifetime excess weight loss is 41 %. Body mass index is reduced from 62.8 down to 47.2 PAST MEDICAL HISTORY: 1. Morbid obesity, BMI 62.8 initial 2. Hypertension. 3. Blood glucose intolerance. 4. Thyroid nodules. 5. Diverticulosis. 6. Osteoarthritis of the lower back. 7. Gastroesophageal reflux disease PAST SURGICAL HISTORY: 1. Laparoscopic cholecystectomy. 2. EGD. 3. Sleeve gastrectomy. 4. Paraesophageal hiatal hernia repair. 5. Oophorectomy including exploratory laparotomy. 6. Colonoscopy. 7. Status post back surgery. 8. Status post conversion sleeve to gastric bypass. 9. Hysterectomy 10. Lysis of adhesions MEDICATIONS: Home Medications Medication Instructions Recorded Confirmed Latanoprost Ophth [Xalatan 0.005%] 1 drops BOTH EYES HS 11/26/13 06/11/21 Albuterol Sulfate [Proair Hfa] 2 puff INHALATION RT-Q4H PRN 01/25/14 06/11/21 Cyclobenzaprine [Flexeril] 10 mg PO HS 02/02/18 06/11/21 methIMAzole [Tapazole] 2.5 - 5 mg PO DAILY 02/02/18 06/11/21 Desipramine HCl [Norpramin] 50 mg PO BID 05/18/18 06/07/21 HYDROcodone/APAP 7.5-325MG [[place] 1 tab PO QID PRN 07/07/20 06/07/21 7.5-325] Multivitamins, Thera [Multivitamin 1 tab PO DAILY 07/07/20 06/07/21 (formulary)] Biotin 20,000 mcg PO DAILY 12/27/20 06/07/21 Calcium Carbonate/Vitamin D3 2 each PO DAILY 12/27/20 06/07/21 [Calcium 500 mg-Vit D3 5 mcg (200 Unit)] Atorvastatin [Lipitor] 10 mg PO DAILY 05/30/21 06/11/21 Clopidogrel [Plavix] 75 mg PO DAILY 05/30/21 06/07/21 Butalb/Acetaminophen/Caffeine 1 - 2 cap PO Q4HR PRN 06/07/21 06/11/21 [Fioricet 50-300-40 mg Capsule] Calcium Carbonate [Tums] 500 - 1,000 mg PO QID 06/07/21 06/11/21 Mexiletine [Mexitil] 150 mg PO QAM 06/07/21 06/11/21 Previous Rx's Medication Instructions Recorded Acetaminophen Tab [Tylenol] 1,000 mg PO Q6HR PRN #30 tablet 06/26/20 ALLERGIES: Allergies Allergy/AdvReac Type Severity Reaction Status Date / Time aspirin Allergy Abdominal Verified 06/07/21 15:25 Pain Penicillins Allergy Itching Verified 06/07/21 15:25 environmental Allergy nose Uncoded 06/07/21 15:25 drainage, watery eyes, sneeze SOCIAL HISTORY: Nontobacco user. FAMILY HISTORY: Pertinent for super morbid obesity. REVIEW OF SYSTEMS: CONSTITUTIONAL: At her height of 5 feet 4 inches her ideal body weight is 144 pounds. Her highest weight was 365 pounds. Body mass index is reduced from 62.8. MUSCULOSKELETAL: Reports lower back pain. Has diffuse joint pain. GASTROINTESTINAL: Has gastroesophageal reflux disease. No dumping syndrome. Has diverticulosis. ENDOCRINE: Has history of thyroid disorder and with thyroid nodules. Prior history of blood sugar glucose intolerance. NEURO: Reports increased neuropathy of the distal lower extremities. Has chronic pain. CARDIOVASCULAR: Resolution of dyslipidemia. Has hypertension. RESPIRATORY: History obstructive sleep apnea moderately improved. HEENT: No trouble with vision or hearing. PSYCH: No reports of depression or suicidal ideation. HEMATOLOGIC: Denies any abnormal bleeding or bruising. SKIN: No skin cancer. Has panniculitis. PHYSICAL EXAM: VITAL SIGNS: 5 feet 4 inches; 274 pounds. Body mass index 47.2 Vital Signs Temp 98.2 F 05/30/21 12:49 Pulse 84 05/30/21 12:49 Resp BP 141/84 05/30/21 12:49 Pulse Ox ABDOMEN: No palpable incisional hernia. No peritonitis. GENERAL: Well developed female in no acute distress. MUSCULOSKELETAL: No clubbing, cyanosis. HEENT: No scleral icterus. Extraocular movements are intact. Head is atraumatic, normocephalic. Hears conversational speech. NECK: Nontender. No lymphadenopathy. CHEST: Nonlabored respirations. Equal bilateral excursions. CARDIOVASCULAR: Regular rate. Regular rhythm. 2+ radial pulses NEURO: No focal or lateralizing signs. Cranial nerves II to XII grossly intact. PSYCH: Appropriate affect. Alert and oriented to person, place and time. SKIN: Well perfused. Good skin turgor. Has panniculitis. LABS: Reviewed. PTH elevated. ASSESSMENT: 1. Morbid obesity due to excess calories. 2. Body mass index reduced from 61.2 down to 47.2 3. Status post sleeve to gastric bypass conversion 4. Bilateral lower extremity edema 5. Hypothyroidism 6. Vitamin D deficiency 7. Panniculitis 8. Secondary hyperparathyroidism 9. Lower abdominal pain 10. Peritoneal adhesions. 11. Hiatal hernia 12. Chronic pain. PLAN: 1. Recommend assessment for another pain specialist. 2. She needs a new customer care specialist, pain specialist. 3. She has history of severe lysis of adhesions. Recommend for lysis of adhesions for recurrent abdominal pain. 4. Recommend colonoscopy for diverticulosis and polyps. 5. She is elevated risk for complications with history of diverticulosis and co-morbidities including chronic pain. Past Medical History Past Medical History: CVA/TIA, Deep Vein Thrombosis (DVT), Eye Disorder, Osteoarthritis (OA), Thyroid Disorder Additional Past Medical History / Comment(s): Bilateral carpal tunnel, neuropathy to all limbs/extremeties, migraines, HX TIA X2 in 2010, GLAUCOMA, DVT in 70's w/taking control. 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 abdominal pain, "knot in top of my chest when swallowing food". 2020 - swelling to lower left ankle. History of Any Multi-Drug Resistant Organisms: None Reported Past Surgical History: Bariatric Surgery, Section, Cholecystectomy, Hernia Repair, Hysterectomy, Joint Replacement, Orthopedic Surgery Additional Past Surgical History / Comment(s): Temporal biopsy, EGD, CARPAL TUNNEL rt hand, LEFT LEG SURGERY, gastric sleeve 01/31/2014. Revision to Gastric RnY 07-27-18, left knee replacement Past Anesthesia/Blood Transfusion Reactions: No Reported Reaction Additional Past Anesthesia/Blood Transfusion Reaction / Comm: STATES "SPINAL WENT TOO HIGH" with labor. Never had blood transfusion and does not want any but plasma is ok. Smoking Status: Former smoker - Past Family History Sister(s) Family Medical History: Cancer Additional Family Medical History / Comment(s): COLON Brother(s) Family Medical History: Cancer Additional Family Medical History / Comment(s): Prostate CA Bariatric Checklist Checklist: Plan: Checklist: EGD: 1. Hiatal hernia: 2. H. Pylori: HgbA1c: Vitamin D: Smoking: Former smoker Primary care physician referral: DR. Shaheen RAVI Psychiatry clearance: Cardiology clearance: Sleep study: Diet journal: VTE risk score: VTE risk level: Rehab needs at discharge:
== END ==
LOC: BARWHC3 12:24
PROVIDERS: ATTEND Surgery Plastic and Reconstructive Surgery
DX: E66.01 Morbid (severe) obesity due to excess calories (principal); Z68.42 Body mass index [BMI] 45.0-49.9, adult; Z98.84 Bariatric surgery status; R60.0 Localized edema; E03.9 Hypothyroidism, unspecified; E55.9 Vitamin D deficiency, unspecified; E21.1 Secondary hyperparathyroidism, not elsewhere classified; R10.30 Lower abdominal pain, unspecified; K44.9 Diaphragmatic hernia without obstruction or gangrene; G89.29 Other chronic pain; K66.0 Peritoneal adhesions (postprocedural) (postinfection); M79.3 Panniculitis, unspecified; Z86.73 Personal history of transient ischemic attack (TIA), and cerebral infarction without residual deficits; Z86.718 Personal history of other venous thrombosis and embolism; M19.90 Unspecified osteoarthritis, unspecified site; G43.909 Migraine, unspecified, not intractable, without status migrainosus; Z87.891 Personal history of nicotine dependence; Z88.6 Allergy status to analgesic agent; Z88.0 Allergy status to penicillin; Z91.09 Other allergy status, other than to drugs and biological substances
CPT/HCPCS: 99211

== ENCOUNTER → 2021-06-04 | Outpatient (CLI) | payer MEDICARE, OTHER ==
[2021-06-04 19:18] LABS: Albumin/Globulin Ratio 1.27 (1.60-3.17); Anion Gap 11.4 mmol/L (10.00-18.00); BUN/Creat Ratio 14.51 Ratio (12.00-20.00); Blood Urea Nitrogen 11.9 mg/dL (9.0-27.0); Calcium 9.2 mg/dL (8.7-10.3); Carbon Dioxide 23.5 mmol/L (20.0-27.5); Globulin 3.2 g/dL (1.6-3.3); Non-African American GFR(CKD) 75.1 (60.0-200.0); Potassium 4.7 mmol/L (3.5-5.5); T4, Free (Free Thyroxine) 1.14 ng/dL (0.800-1.800); Total Bilirubin 0.4 mg/dL (0.30-1.20); Total Protein 7.2 g/dL (6.2-8.2)
== END | disposition home or self-care (01) ==
LOC: LABWHC1 13:37
PROVIDERS: ATTEND Internal Medicine Endocrinology, Diabetes & Metabolism
DX: E05.20 Thyrotoxicosis with toxic multinodular goiter without thyrotoxic crisis or storm (principal)
CPT/HCPCS: 36415; 80053; 84439; 84443; 84480

== ENCOUNTER → 2021-06-08 | Outpatient (CLI) | payer MEDICARE, OTHER ==
[2021-06-08 09:19] LABS: Partial Thromboplastin Time 23.7 sec (22.0-30.0)
[2021-06-08 11:02] LABS: HCT 41.1 % (37.2-46.3); HGB 13.2 g/dL (12.0-15.0); MCH 29.9 pg (27.0-32.0); MCHC 32.1 g/dL (32.0-37.0); MCV 93.2 fL (80.0-97.0); Mean Platelet Volume 11.8 fL (9.5-12.2); NRBC Per 100 WBC 0 /100 WBCS (0.0-0.0); Platelet Count 205 X 10*3/uL (140-440); RBC 4.41 X 10*6/uL (4.10-5.20); RDW 13.6 % (11.5-14.5); WBC 3.74 X 10*3/uL (4.50-10.00)
[2021-06-08 11:19] LABS: % Iron Saturation 26.44 (12.00-45.00); ALT 31 U/L (8-44); AST 24 U/L (13-35); African American GFR (CKD) 85.1 (60.0-200.0); Albumin 4.1 g/dL (3.8-4.9); Albumin/Globulin Ratio 1.62 (1.60-3.17); Alkaline Phosphatase 127 U/L (41-126); BUN/Creat Ratio 16.65 Ratio (12.00-20.00); Blood Urea Nitrogen 13.9 mg/dL (9.0-27.0); Calcium 9.1 mg/dL (8.7-10.3); Carbon Dioxide 24.5 mmol/L (20.0-27.5); Chloride 101 mmol/L (96-109); Globulin 2.6 g/dL (1.6-3.3); Glucose 93 mg/dL (70-110); Iron 74 ug/dL (50-170); Magnesium 2.1 mg/dL (1.5-2.4); Non-African American GFR(CKD) 73.5 (60.0-200.0); Phosphorus 4.2 mg/dL (2.4-5.1); Potassium 4.6 mmol/L (3.5-5.5); Prealbumin 19.8 mg/dL (18.0-42.0); Sodium 137 mmol/L (135-145); Total Iron Binding Capacity 281 ug/dL (228-460); Total Protein 6.7 g/dL (6.2-8.2)
[2021-06-08 11:22] LABS: Folate, Serum >20.00 ng/mL (4.40-31.00)
[2021-06-08 11:32] LABS: Chol/HDL Ratio 1.62 Ratio
[2021-06-09 12:18] LABS: Coronavirus SARS CoV-2 Not Detected (Not Detected)
== END | disposition home or self-care (01) ==
LOC: LABPAT 07:27
PROVIDERS: ATTEND Surgery Plastic and Reconstructive Surgery
DX: Z01.812 Encounter for preprocedural laboratory examination (principal); E89.1 Postprocedural hypoinsulinemia; D50.8 Other iron deficiency anemias; E44.0 Moderate protein-calorie malnutrition; E44.1 Mild protein-calorie malnutrition; E45 Retarded development following protein-calorie malnutrition; K74.1 Hepatic sclerosis; N19 Unspecified kidney failure; T56.894A Toxic effect of other metals, undetermined, initial encounter; K50.90 Crohn's disease, unspecified, without complications; Z20.822 Contact with and (suspected) exposure to COVID-19; E66.01 Morbid (severe) obesity due to excess calories
CPT/HCPCS: 84255; 84134; 84425; 80061; 80053; 82607; 82728; 82525; 82746; 83540; 83550; 83735; 84100; 84443; 84590; 84630; 85027; 85610; 85730; 83721; 82306; 83970; 83036; 93005; U0003; C9803; U0005

== ENCOUNTER → 2021-09-06 | Outpatient (CLI) | payer MEDICARE, OTHER ==
[2021-09-06 14:58] LABS: African American GFR (CKD) 71.4 (60.0-200.0); Albumin/Globulin Ratio 1.11 (1.60-3.17); Anion Gap 13.1 mmol/L (10.00-18.00); BUN/Creat Ratio 18.65 Ratio (12.00-20.00); Blood Urea Nitrogen 17.9 mg/dL (9.0-27.0); Calcium 9.2 mg/dL (8.7-10.3); Carbon Dioxide 25.9 mmol/L (20.0-27.5); Globulin 3.6 g/dL (1.6-3.3); Non-African American GFR(CKD) 61.6 (60.0-200.0); Potassium 4.8 mmol/L (3.5-5.5); T4, Free (Free Thyroxine) 1.04 ng/dL (0.800-1.800); Total Bilirubin 0.3 mg/dL (0.30-1.20); Total Protein 7.6 g/dL (6.2-8.2)
--- NOTE | 2021-09-07 14:36 | MM ---
Reason for exam: screening (asymptomatic). Last mammogram was performed 1 year and 2 months ago. History: Patient is postmenopausal. Physical Findings: A clinical breast exam by your physician is recommended on an annual basis and results should be correlated with mammographic findings. MG 3D Screening Mammo W/Cad Bilateral CC, MLO, and XCCL view(s) were taken. Prior study comparison: July 12, 2020, bilateral MG screening mammo w CAD. May 21, 2019, bilateral MG screening mammo w CAD. The breast tissue is heterogeneously dense. This may lower the sensitivity of mammography. Benign appearing bilateral calcifications. No significant changes when compared with prior studies. ASSESSMENT: Benign, BI-RAD 2 RECOMMENDATION: Routine screening mammogram of both breasts in 1 year.
== END | disposition home or self-care (01) ==
LOC: RADMAMWWP 08:47
PROVIDERS: ATTEND Internal Medicine Endocrinology, Diabetes & Metabolism
DX: Z12.31 Encounter for screening mammogram for malignant neoplasm of breast (principal); E05.20 Thyrotoxicosis with toxic multinodular goiter without thyrotoxic crisis or storm; Z78.0 Asymptomatic menopausal state
CPT/HCPCS: 77063; 77067; 80053; 84439; 84443; 84480

== ENCOUNTER → 2021-12-01 | Outpatient (CLI) | payer MEDICARE, OTHER ==
[2021-12-01 12:01] LABS: Partial Thromboplastin Time 23.5 sec (22.0-30.0); Prothrombin Time 10.8 sec (9.0-12.0)
[2021-12-01 16:58] LABS: Basophils # (A) 0.03 X 10*3/uL (0.00-0.10); Basophils % (A) 0.7 %; Eosinophils % (A) 2.3 %; HCT 40.7 % (37.2-46.3); HGB 13.1 g/dL (12.0-15.0); Immature Grans, Automated 0.5 %; Lymphocytes # (A) 1.83 X 10*3/uL (0.90-5.00); Lymphocytes % (A) 41.8 %; MCHC 32.2 g/dL (32.0-37.0); MCV 93.3 fL (80.0-97.0); Mean Platelet Volume 12.1 fL (9.5-12.2); Monocytes # (A) 0.43 X 10*3/uL (0.20-1.00); Monocytes % (A) 9.8 %; NRBC Per 100 WBC 0 /100 WBCS (0.0-0.0); Neutrophils # (A) 1.97 X 10*3/uL (1.80-7.70); Neutrophils % (A) 44.9 %; Platelet Count 204 X 10*3/uL (140-440); RBC 4.36 X 10*6/uL (4.10-5.20); RDW 13.6 % (11.5-14.5); WBC 4.38 X 10*3/uL (4.50-10.00)
[2021-12-01 17:16] LABS: Albumin 4.1 g/dL (3.8-4.9); Albumin/Globulin Ratio 1.21 (1.60-3.17); Anion Gap 8.3 mmol/L (10.00-18.00); BUN/Creat Ratio 13.38 Ratio (12.00-20.00); Blood Urea Nitrogen 10.7 mg/dL (9.0-27.0); Calcium 9.2 mg/dL (8.7-10.3); Carbon Dioxide 28.7 mmol/L (20.0-27.5); Globulin 3.4 g/dL (1.6-3.3); Non-African American GFR(CKD) 76.8 (60.0-200.0); Potassium 4.5 mmol/L (3.5-5.5); Total Bilirubin 0.3 mg/dL (0.30-1.20); Total Protein 7.5 g/dL (6.2-8.2)
[2021-12-01 17:41] LABS: Appearance,Urine Cloudy (Clear); Bilirubin,Urine Negative (Negative); Blood,Urine Negative (Negative); Color,Urine Yellow (Yellow); Ketones,Urine Trace mg/dL (Negative); Nitrite,Urine Positive (Negative); PH, Urine 5.5 (5.0-8.0); Specific Gravity,Urine 1.023 (1.001-1.030)
[2021-12-01 17:51] LABS: Bacteria,Urine 3+ /HPF (None Seen)
== END | disposition home or self-care (01) ==
LOC: LABWHC1 09:49
PROVIDERS: ATTEND Neurological Surgery
DX: I10 Essential (primary) hypertension (principal)
CPT/HCPCS: 36415; 80053; 81001; 83036; 85025; 85610; 85730

== ENCOUNTER → 2021-12-26 | Outpatient (CLI) | payer MEDICARE, OTHER ==
[2021-12-26 20:09] LABS: T4, Free (Free Thyroxine) 1.12 ng/dL (0.800-1.800)
== END | disposition home or self-care (01) ==
LOC: LABWHC1 13:17
PROVIDERS: ATTEND Internal Medicine Endocrinology, Diabetes & Metabolism
DX: E05.20 Thyrotoxicosis with toxic multinodular goiter without thyrotoxic crisis or storm (principal)
CPT/HCPCS: 36415; 84439; 84443; 84480

== ENCOUNTER → 2022-03-01 | Outpatient (CLI) | payer MEDICARE, OTHER ==
[2022-03-01 09:51] LABS: Partial Thromboplastin Time 23.4 sec (22.0-30.0); Prothrombin Time 10.8 sec (9.0-12.0)
[2022-03-01 14:32] LABS: Basophils # (A) 0.03 X 10*3/uL (0.00-0.10); Basophils % (A) 0.6 %; Eosinophils # (A) 0.06 X 10*3/uL (0.04-0.35); Eosinophils % (A) 1.3 %; HCT 41.4 % (37.2-46.3); HGB 13.4 g/dL (12.0-15.0); Immature Grans, Automated 0.2 %; Lymphocytes # (A) 2.04 X 10*3/uL (0.90-5.00); Lymphocytes % (A) 43.9 %; MCH 29.2 pg (27.0-32.0); MCHC 32.4 g/dL (32.0-37.0); MCV 90.2 fL (80.0-97.0); Mean Platelet Volume 11.9 fL (9.5-12.2); Monocytes # (A) 0.37 X 10*3/uL (0.20-1.00); NRBC Per 100 WBC 0 /100 WBCS (0.0-0.0); Neutrophils # (A) 2.14 X 10*3/uL (1.80-7.70); Platelet Count 255 X 10*3/uL (140-440); RBC 4.59 X 10*6/uL (4.10-5.20); RDW 13.2 % (11.5-14.5); WBC 4.65 X 10*3/uL (4.50-10.00)
[2022-03-01 14:51] LABS: Appearance,Urine Clear (Clear); Bilirubin,Urine Small (Negative); Blood,Urine Negative (Negative); Color,Urine Dark Yellow (Yellow); Ketones,Urine Trace mg/dL (Negative); Nitrite,Urine Negative (Negative); PH, Urine 5.5 (5.0-8.0); Specific Gravity,Urine 1.029 (1.001-1.030)
[2022-03-01 14:58] LABS: Bacteria,Urine 1+ /HPF (None Seen)
[2022-03-01 16:04] LABS: Albumin 4.2 g/dL (3.8-4.9); Albumin/Globulin Ratio 1.35 (1.60-3.17); Anion Gap 10.2 mmol/L (10.00-18.00); BUN/Creat Ratio 12.5 Ratio (12.00-20.00); Calcium 9.4 mg/dL (8.7-10.3); Carbon Dioxide 26.8 mmol/L (20.0-27.5); Globulin 3.1 g/dL (1.6-3.3); Non-African American GFR(CKD) 76.8 (60.0-200.0); Potassium 4.8 mmol/L (3.5-5.5); Total Bilirubin 0.4 mg/dL (0.30-1.20); Total Protein 7.3 g/dL (6.2-8.2)
== END | disposition home or self-care (01) ==
LOC: LABWHC1 08:46
PROVIDERS: ATTEND Neurological Surgery
DX: Z01.812 Encounter for preprocedural laboratory examination (principal); Z20.822 Contact with and (suspected) exposure to COVID-19; M25.561 Pain in right knee
CPT/HCPCS: 80053; 85025; 85610; 85730; 81001; 87086; 83036; 36415; U0003; U0005

== ENCOUNTER → 2022-04-22 | Outpatient (CLI) | payer MEDICARE, OTHER ==
[2022-04-22 16:41] LABS: T4, Free (Free Thyroxine) 1.04 ng/dL (0.800-1.800)
== END | disposition home or self-care (01) ==
LOC: LABWHC1 10:14
PROVIDERS: ATTEND Internal Medicine Endocrinology, Diabetes & Metabolism
DX: E05.20 Thyrotoxicosis with toxic multinodular goiter without thyrotoxic crisis or storm (principal)
CPT/HCPCS: 36415; 84439; 84443; 84480

== ENCOUNTER → 2022-07-17 | Outpatient (CLI) | payer MEDICARE, OTHER ==
[2022-07-17 13:14] VITALS: BP 177/73; PULSE 78; TEMP 97.5; BMI 50.1
--- NOTE | 2022-07-17 13:57 | P.BASOAP ---
Subjective Progress Note Date: 07/17/22 She has gained more weight. She is up 60 pounds from her lowest and needs a knee replacement. She comes in with complications from recent right leg/knee surgery. TENS unit is being used. She reprots needing to go back to basics. She needs a journal. Labs this year. Check TSH. US of neck this year done. Recommend labs. Objective - Vital Signs Vital signs: Vital Signs Temp 97.5 F L 07/17/22 13:05 Pulse 78 07/17/22 13:05 Resp BP 177/73 07/17/22 13:05 Pulse Ox FiO2 Intake & Output 07/16/22 07/17/22 07/17/22 18:59 06:59 18:59 Weight 132.449 kg Assessment/Plan Plan: Date: 07/17/22 Initial Weight: 106.623 kg Initial BMI: 40.3 Current Weight: 132.449 kg Current BMI: 50.1 Type of Surgery: Total Volume in Band: Previous Volume: Volume Removed: Volume Added: Band Size:
[2022-07-17 15:07] LABS: Partial Thromboplastin Time 23.7 sec (22.0-30.0); Prothrombin Time 10.9 sec (9.0-12.0)
[2022-07-17 23:06] LABS: Chol/HDL Ratio 1.86 Ratio; LDL Cholesterol,Calculated 46.1 mg/dL (0.0-131.0); Prealbumin 19.5 mg/dL (18.0-42.0)
[2022-07-17 23:09] LABS: HCT 41.1 % (37.2-46.3); HGB 12.9 g/dL (12.0-15.0); MCH 29.6 pg (27.0-32.0); MCHC 31.4 g/dL (32.0-37.0); MCV 94.3 fL (80.0-97.0); Mean Platelet Volume 11.5 fL (9.5-12.2); NRBC Per 100 WBC 0 /100 WBCS (0.0-0.0); Platelet Count 238 X 10*3/uL (140-440); RBC 4.36 X 10*6/uL (4.10-5.20); RDW 13.9 % (11.5-14.5); WBC 4.29 X 10*3/uL (4.50-10.00)
[2022-07-18 00:26] LABS: % Iron Saturation 21.81 (12.00-45.00); ALT 31 U/L (8-44); AST 20 U/L (13-35); African American GFR (CKD) 79.5 (60.0-200.0); Albumin 4.2 g/dL (3.8-4.9); Albumin/Globulin Ratio 1.33 (1.60-3.17); Alkaline Phosphatase 140 U/L (41-126); BUN/Creat Ratio 11.78 Ratio (12.00-20.00); Blood Urea Nitrogen 10.3 mg/dL (9.0-27.0); Calcium 9.9 mg/dL (8.7-10.3); Carbon Dioxide 25.6 mmol/L (20.0-27.5); Chloride 98 mmol/L (96-109); Globulin 3.1 g/dL (1.6-3.3); Glucose 89 mg/dL (70-110); Iron 69 ug/dL (50-170); Magnesium 2.2 mg/dL (1.5-2.4); Non-African American GFR(CKD) 68.6 (60.0-200.0); Phosphorus 4.2 mg/dL (2.4-5.1); Potassium 4.5 mmol/L (3.5-5.5); Sodium 136 mmol/L (135-145); Total Iron Binding Capacity 318 ug/dL (228-460); Total Protein 7.3 g/dL (6.2-8.2)
[2022-07-18 13:04] LABS: Zinc, Serum 62 ug/dL (60-130)
[2022-07-19 11:36] LABS: Vit B1(Thiamine) 45 ug/L (38-122)
[2022-07-19 11:54] LABS: Vitamin A 55 ug/dL (38-106)
== END ==
LOC: BARWHC3 12:48
PROVIDERS: ATTEND Surgery Plastic and Reconstructive Surgery
DX: E66.01 Morbid (severe) obesity due to excess calories (principal); Z68.43 Body mass index [BMI] 50.0-59.9, adult; Z88.0 Allergy status to penicillin; Z88.6 Allergy status to analgesic agent; Z91.09 Other allergy status, other than to drugs and biological substances; Z87.891 Personal history of nicotine dependence; D50.8 Other iron deficiency anemias; K91.2 Postsurgical malabsorption, not elsewhere classified; E44.0 Moderate protein-calorie malnutrition; E55.9 Vitamin D deficiency, unspecified; E44.1 Mild protein-calorie malnutrition; K74.1 Hepatic sclerosis; N19 Unspecified kidney failure; T56.894A Toxic effect of other metals, undetermined, initial encounter
CPT/HCPCS: 84255; 84134; 84425; 80061; 80053; 82607; 82728; 82525; 82746; 83540; 83550; 83735; 84100; 84443; 84590; 84630; 85027; 85610; 85730; 82306; 83970; 83036; G0463; 99211

== ENCOUNTER → 2022-10-11 | Outpatient (CLI) | payer MEDICARE, OTHER ==
--- NOTE | 2022-10-14 07:41 | MM ---
Reason for Exam: Screening (asymptomatic). Last mammogram was performed 1 year(s) and 1 month(s) ago. Patient History: Menarche at age 13. First Full-Term at age 18. Left ovary removed at age 37. Right ovary removed at age 37. Hysterectomy at age 32. Postmenopausal. Risk Values: Ashley 5 year model risk: 1.7%. NCI Lifetime model risk: 5.5%. Prior Study Comparison: 05/02/2016 Bilateral Screening Mammogram, [facility]. 05/15/2018 Bilateral Screening Mammogram, [facility]. 05/21/2019 Bilateral Screening Mammogram, [facility]. 07/12/2020 Bilateral Screening Mammogram, [facility]. 09/06/2021 Bilateral Screening Mammogram, [facility]. Tissue Density: The breast tissue is heterogeneously dense. This may lower the sensitivity of mammography. Findings: Analyzed By CAD. There is no suspicious group of microcalcifications or new suspicious mass in either breast. Overall Assessment: Negative, BI-RAD 1 Management: Screening Mammogram of both breasts in [address] [facility] will attempt to contact patient to return for supplemental views and ultrasound if indicated. Patient should continue monthly self-breast exams. A clinical breast exam by your physician is recommended on an annual basis. This exam should not preclude additional follow-up of suspicious palpable abnormalities. Note on Ashley scores and lifetime risk: 1. A Ashley score greater than 3% is considered moderate risk. If this is the case, consider specialist referral to assess eligibility for a risk reducing agent. 2. If overall lifetime risk for the development of breast cancer is 20% or higher, the patient may qualify for future screening with alternating mammogram and breast MRI. Electronically signed and approved by: Min Hunter DO
== END | disposition home or self-care (01) ==
LOC: RADMAMWWP 07:43
PROVIDERS: ATTEND Family Medicine
DX: Z12.31 Encounter for screening mammogram for malignant neoplasm of breast (principal); Z78.0 Asymptomatic menopausal state
CPT/HCPCS: 77063; 77067

== ENCOUNTER → 2023-01-09 | Outpatient (CLI) | payer MEDICARE, OTHER ==
[2023-01-09 15:13] LABS: T4, Free (Free Thyroxine) 0.9 ng/dL (0.80-1.80)
== END | disposition home or self-care (01) ==
LOC: LABWHC1 09:29
PROVIDERS: ATTEND Internal Medicine Endocrinology, Diabetes & Metabolism
DX: E04.2 Nontoxic multinodular goiter (principal)
CPT/HCPCS: 36415; 84439; 84443; 84480

== ENCOUNTER → 2023-03-14 | Outpatient (CLI) | payer MEDICARE, OTHER ==
--- NOTE | 2023-03-14 15:07 | XR ---
EXAMINATION TYPE: XR cervical spine limited DATE OF EXAM: 03/14/2023 1:24 PM CLINICAL INDICATION:Female, 67 years old with history of CERVICAL ROOT DISORDERS, NOT ELSEWHERE CLASS IFIED; COMPARISON: 08/01/2014. TECHNIQUE: The cervical spine was imaged in frontal, lateral, and odontoid. FINDINGS: The osseous structures show normal alignment without evidence of an acute fracture. There are osteoph ytes noted throughout the cervical spine on the anterior and lateral aspects of the vertebral bodies. The intervertebral disk spaces are narrowed at multiple levels Pedicles are intact. Soft tissues ar e within normal limits. The odontoid appears intact. IMPRESSION: 1. No fracture or dislocation. 2. Mild degenerative disc disease changes of the cervical spine.
== END | disposition home or self-care (01) ==
LOC: RADXRMAIN 12:59
PROVIDERS: ATTEND Family Medicine
DX: M50.30 Other cervical disc degeneration, unspecified cervical region (principal)
CPT/HCPCS: 72040

== ENCOUNTER → 2023-07-16 | Outpatient (CLI) | payer MEDICARE, OTHER | END | disposition home or self-care (01) | LOC: LABWHC1 14:40 | PROVIDERS: ATTEND Internal Medicine Endocrinology, Diabetes & Metabolism | DX: E04.1 Nontoxic single thyroid nodule (principal) | CPT/HCPCS: 36415; 84439; 84443; 84480 ==

== ENCOUNTER → 2023-11-06 | Outpatient (CLI) | payer MEDICARE, OTHER ==
[2023-11-06 15:48] LABS: T4, Free (Free Thyroxine) 1.04 ng/dL (0.80-1.80)
== END | disposition home or self-care (01) ==
LOC: LABWHC1 12:18
PROVIDERS: ATTEND Internal Medicine Endocrinology, Diabetes & Metabolism
DX: E05.90 Thyrotoxicosis, unspecified without thyrotoxic crisis or storm (principal)
CPT/HCPCS: 36415; 84439; 84443; 84480

== ENCOUNTER → 2024-04-14 | Outpatient (CLI) | payer MEDICARE, OTHER ==
--- NOTE | 2024-04-14 15:46 | XR ---
EXAMINATION TYPE: XR finger RT DATE OF EXAM: 04/14/2024 3:31 PM COMPARISON: 08/17/2020 CLINICAL INDICATION: Female, 68 years old with history of PAIN IN RIGHT THUMB M79.644; [facility], pain TECHNIQUE: XR finger RT 3views were obtained. FINDINGS: Normal alignment of the visualized joints. No acute osseous pathology is identified. No e vidence of soft tissue swelling. No significant degeneration large severe degeneration of the first d igit interphalangeal joint with osteophytes and joint space narrowing. The thumb appears slightly sub luxed at the joint. IMPRESSION: No acute osseous pathology. Moderate to severe degeneration of the interphalangeal joint of the first digit [facility], , 04/14/2024 3:44 PM
== END | disposition home or self-care (01) ==
LOC: RADXRMAIN 15:11
PROVIDERS: ATTEND Family Medicine
DX: M19.041 Primary osteoarthritis, right hand (principal)

== ENCOUNTER → 2024-05-19 | Outpatient (CLI) | payer MEDICARE, OTHER ==
[2024-05-19 19:41] LABS: T4, Free (Free Thyroxine) 0.94 ng/dL (0.80-1.80)
== END | disposition home or self-care (01) ==
LOC: LABWHC1 13:58
PROVIDERS: ATTEND Internal Medicine Endocrinology, Diabetes & Metabolism
DX: E05.90 Thyrotoxicosis, unspecified without thyrotoxic crisis or storm (principal)
CPT/HCPCS: 36415; 84439; 84443; 84480

== ENCOUNTER → 2024-07-12 | Outpatient (CLI) | payer MEDICARE, OTHER ==
--- NOTE | 2024-07-12 15:54 | US ---
EXAMINATION TYPE: US thyroid st tissue head/neck DATE OF EXAM: 07/12/2024 COMPARISON: US 06/20/2022 CLINICAL INDICATION: Female, 68 years old with history of E04.2 MULTINODULAR GOITER; Multinodular, F/ U TECHNIQUE: Grayscale and color Doppler imaging of the thyroid gland. FINDINGS: GLAND SIZE: Right Lobe: 6.8 x 2.7 x 2.3 cm Overall Parenchyma: heterogeneous Left Lobe: 5.6 x 2.8 x 2.7 cm Overall Parenchyma: heterogeneous Isthmus Thickness: 1.3 cm NODULES RIGHT: # of nodules measured on right: 1 1. 0.5 X 0.3 x 0.3 cm, upper mid, solid or almost completely solid, hypoechoic nodule, which is jeff ler than wide, with smooth margins, without echogenic foci. Prior size: 0.5 x 0.4 x 0.5 cm LEFT: # of nodules measured on left: 1. 0.5 X 0.4 x 0.6 cm, upper medial, mixed cystic and solid, hypoechoic nodule, which is wider than tall, with ill-defined margins, without echogenic foci. Prior size: 0.7 x 0.4 x 0.6 cm 2. 1.3 X 1.3 x 1.3 cm, lower medial, solid or almost completely solid, isoechoic nodule, which is wider than tall, with ill-defined margins, without echogenic foci. Prior size: 1.3 x 1.5 x 1.1 cm ISTHMUS: # of nodules measured in the isthmus: 0 Bilateral neck scanned, no evidence of lymphadenopathy. IMPRESSION: Stable features of multinodular goiter TR3-TR4 nodules 2017 ACR TI-RADS LEVEL: *Highest TI-RADS level nodule reported [email or web address] [facility], , 07/12/2024 3:51 PM
== END | disposition home or self-care (01) ==
LOC: RADUSWWP 15:05
PROVIDERS: ATTEND Internal Medicine Endocrinology, Diabetes & Metabolism
DX: E04.2 Nontoxic multinodular goiter (principal)
CPT/HCPCS: 76536